=== PATIENT | male | born 1950 | race Caucasian/White ===

== ENCOUNTER 2019-08-11 10:14 | Outpatient (CLI) | payer MEDICARE, SELFPAY ==
--- NOTE | ~2019-08-11 | XR_ITS ---
EXAMINATION: XR ankle LT 2V DATE: 08/11/2019 10:33 INDICATION: Left ankle tenderness and effusion. TECHNIQUE: 2 views of left ankle were obtained. COMPARISON: None. FINDINGS: Bone alignment is normal. No acute fracture. There is heterotopic ossification distal to me dial and lateral malleoli from old injuries. There is mild midfoot osteoarthritis. There is an enthes ophyte at plantar aspect of calcaneal tuberosity. IMPRESSION: 1. Mild midfoot osteoarthritis. Reviewed, dictated and finalized at location A.
[2019-08-11 11:23] LABS: Uric Acid 5.7 mg/dL (3.5-8.5)
[2019-08-11 12:19] LABS: Hemoglobin 15.1 g/dL (14.0-18.0); Red Blood Count 4.59 M/mm3 (4.6-6.20); White Blood Count 7.4 K/mm3 (4.5-10.0)
[2019-08-11 12:20] LABS: Hematocrit 43.8 % (42.0-52.0); Mean Corpuscular HGB Conc 34.5 g/dl (32-36); Mean Corpuscular Hemoglobin 32.9 pg (26-34); Mean Corpuscular Volume 95.4 fl (80-100); Platelet Count Result 156 k/mm3 (150-375); Red Cell Distribution Width 13.2 % (11.5-14.5)
== END 2019-08-11 10:15 | disposition home or self-care (01) ==
LOC: ANHIMG 10:20
PROVIDERS: PCP Family Medicine; Visit Provider Nurse Practitioner Family
DX: S99.919A Unspecified injury of unspecified ankle, initial encounter (principal); M25.472 Effusion, left ankle; M10.9 Gout, unspecified; M19.072 Primary osteoarthritis, left ankle and foot
CPT/HCPCS: 36415; 73600; 84550; 85027

== ENCOUNTER 2020-06-01 10:13 | Outpatient (CLI) | payer MEDICARE, SELFPAY ==
--- NOTE | ~2020-06-01 | CT_ITS ---
EXAMINATION: CT abdomen pelvis w con DATE: 06/01/2020 10:42 INDICATION: Right lower quadrant abdominal pain for one week. Recent heavy lifting. TECHNIQUE: Computed tomography (CT) of the abdomen and pelvis was performed with 100 cc Omnipaque 350 intravenous contrast. Automated exposure control and iterative reconstruction technique were employe d. Exam dose: 946.15 mGy-cm total exam DLP. COMPARISON: None. FINDINGS: The lung bases are clear of infiltrate or consolidation. Normal heart size. No pericardial or pleural effusion. Multiple gallstones. Gallbladder wall measures approximately 2 mm thickness, within upper limits of n ormal. No hepatic space-occupying mass lesion or bile duct dilatation. No pancreatic mass lesion, calcificat ion or ductal dilatation. Normal splenic size. Normal morphology of the adrenal glands. No renal mass lesion except for small exophytic lateral upper pole right renal cyst. No urinary tract calculus or hydroureteronephrosis. There is prostate enlargement and calcification. The urinary bladder appears unremarkable. There is extensive calcification of the abdominal aorta but no abdominal aortic aneurysm. Renal arter y calcifications. Iliac and femoral artery calcifications. No intraperitoneal or retroperitoneal or pelvic mass lesion or adenopathy or ascites. Diverticulosis of left and right colon. No diverticulitis is detected. Normal appendix. No bowel obst ruction, bowel wall thickening, pneumatosis or intraperitoneal free air. Very small fat-containing umbilical hernia. Mild bilateral hydroceles. Diffuse idiopathic hyperostosis of the thoracic spine. There are bilateral L5 pars interarticularis defects with associated grade 2 anterolisthesis at L5-S1 . Moderately severe degenerative disc disease at L4-5. Severe degenerative disc disease at L5-S1. IMPRESSION: Cholelithiasis Diverticulosis of the colon; no evidence of diverticulitis Normal appendix Prostate enlargement and calcification Reviewed, dictated and finalized at Location A. Reviewed, dictated and finalized at location A.
[2020-06-01 10:37] LABS: Estimated Glomerular Filt Rate > 60
[2020-06-01 11:02] LABS: Basophils Absolute Auto 0.1 K/mm3 (0.0-0.1); Eosinophils Absolute Auto 0.3 K/mm3 (0-0.3); Eosinophils Percent Auto 5.2 % (0-4.4); Hematocrit 42.7 % (42.0-52.0); Hemoglobin 14.7 g/dL (14.0-18.0); Immature Granulocyte Absolute 0.02 K/mm3 (0.00-0.031); Immature Granulocyte Percent A 0.3 % (0-0.5); Lymphocytes Absolute Auto 1.97 K/mm3 (0.9-3.2); Mean Corpuscular HGB Conc 34.4 g/dl (32-36); Mean Corpuscular Hemoglobin 32.7 pg (26-34); Mean Corpuscular Volume 94.9 fl (80-100); Mean Platelet Volume 10.1 fl (7.4-10.4); Monocytes Absolute Auto 0.8 K/mm3 (0.1-0.6); Monocytes Percent Auto 13.1 % (2.6-8.5); Neutrophils Absolute Auto 2.8 K/mm3 (1.3-6.7); Neutrophils Percent Auto 47.4 % (45.5-73.1); Platelet Count Result 153 k/mm3 (150-375); Red Cell Distribution Width 12.6 % (11.5-14.5)
[2020-06-01 11:09] LABS: Alanine Aminotransferase 19 U/L (4-50); Alkaline Phosphatase 42 U/L (38-126); Amylase 45 U/L (30-110); Anion Gap 6 mmol/L (8-16); Aspartate Amino Transferase 28 U/L (17-59); Bilirubin,Total 0.5 mg/dL (0.2-1.3); Blood Urea Nitrogen 14 mg/dL (9-20); Calcium 9.3 mg/dL (8.4-10.2); Carbon Dioxide 26 mmol/L (22-30); Chloride 105 mmol/L (98-107); Estimated Glomerular Filt Rate > 60; Glucose 104 mg/dL (75-110); Lipase 116 U/L (23-300); Potassium 4.2 mmol/L (3.4-5.0); Sodium 137 mmol/L (137-145)
== END 2020-06-01 10:14 | disposition home or self-care (01) ==
LOC: ANHIMG 10:18
PROVIDERS: PCP Family Medicine; Visit Provider Nurse Practitioner Family
DX: R10.31 Right lower quadrant pain (principal); I70.1 Atherosclerosis of renal artery; I70.8 Atherosclerosis of other arteries; I70.213 Atherosclerosis of native arteries of extremities with intermittent claudication, bilateral legs; K57.30 Diverticulosis of large intestine without perforation or abscess without bleeding; M48.14 Ankylosing hyperostosis [Forestier], thoracic region; N43.3 Hydrocele, unspecified; M47.817 Spondylosis without myelopathy or radiculopathy, lumbosacral region; K80.20 Calculus of gallbladder without cholecystitis without obstruction; N40.0 Benign prostatic hyperplasia without lower urinary tract symptoms
CPT/HCPCS: 74177; 80053; 82150; 83690; 85025; Q9967

== ENCOUNTER 2020-06-15 11:08 | Outpatient (CLI) | payer MEDICARE, SELFPAY ==
--- NOTE | ~2020-06-15 | NM_ITS ---
EXAMINATION: NM hepatobiliary w pharm DATE: 06/15/2020 14:02 INDICATION: Calculus of gallbladder without cholecystitis. COMPARISON: CT abdomen and pelvis 06/01/2020 TECHNIQUE: 4.85 mCi Tc-99m mebrofenin (Choletec) was administered intravenously. Scintigraphic image s of the abdomen were obtained for one hour. Then, 2 mcg sincalide (Kinevac) IV was administered, and imaging was continued for 30 minutes. FINDINGS: There is normal clearance of radiotracer from the blood pool. There is homogeneous tracer u ptake by the liver. Activity progresses to the bowel and gallbladder. Gallbladder ejection fraction (GBEF) was 4%. Note that most patients with gallbladder dysfunction have GBEF < 35%, which overlaps w ith the broad normal range of 10-90%. IMPRESSION: 1. Low gallbladder ejection fraction, consistent with gallbladder dysfunction and/or chronic cholecy stitis. Reviewed, dictated and finalized at location A. IMPRESSION: 1. Low gallbladder ejection fraction, consistent with gallbladder dysfunction and/or chronic cholecystitis.
== END 2020-06-15 11:09 | disposition home or self-care (01) ==
PROVIDERS: PCP Family Medicine; Visit Provider Nurse Practitioner Family
DX: K80.20 Calculus of gallbladder without cholecystitis without obstruction (principal)
CPT/HCPCS: 78227; A9537; J2805

== ENCOUNTER → 2020-06-16 01:22 | Outpatient (CLI) | payer MEDICARE, SELFPAY ==
[2020-06-16 18:52] LABS: SARS-CoV-2 RNA PCR Negative
== END ==
PROVIDERS: PCP Family Medicine; Visit Provider Internal Medicine Gastroenterology
DX: Z01.812 Encounter for preprocedural laboratory examination (principal); Z20.822 Contact with and (suspected) exposure to COVID-19
CPT/HCPCS: C9803; U0003; U0005

== ENCOUNTER 2020-06-20 02:42 | Day surgery (SDC) | payer MEDICARE, SELFPAY ==
[2020-06-07 12:37] VITALS: BMI 29.2
[2020-06-20 09:06] VITALS: BP 138/69; PULSE 61; RESP 17; TEMP 36.3; O2SAT 99; BMI 28.0
[2020-06-20] MEDS: LACTATED RINGERS 1,000 ML 150 ML IV CONT (09:17)
--- NOTE | 2020-06-20 10:04 | PM.HPGS ---
History of Present Illness History of Present Illness Consent: Risks, benefits, and alternatives have been discussed and questions answered. Patient agrees to proceed with procedure. Chief complaint: rectal bleeding Narrative: Akhil Whittaker is a 69 year old male Who presented for investigation of rectal bleeding. On a couple of occasions lately he has passed red blood in his stools. His bowel movements have also changed. In the past he would have about 3 stools per day. Now he has usually just 1. He denies excessive constipation or the need to strain. His father had colon cancer Review of Systems Review of Systems: All systems reviewed & are unremarkable except as noted in HPI and below PMFSH Past Medical History Medical History Acute right-sided low back pain without sciatica BMI 28.0-28.9,adult BMI 29.0-29.9,adult Essential (primary) hypertension Gastroesophageal reflux disease without esophagitis Gout, unspecified Hyperlipidemia Paroxysmal atrial fibrillation Unspecified asthma, uncomplicated Unspecified osteoarthritis, unspecified site Surgical History Surgical History H/O elbow surgery H/O hand surgery H/O left knee surgery H/O shoulder surgery History of cardiac radiofrequency ablation Family History Family History Mother Family history of kidney disease Family history of renal failure Diabetes mellitus Father Carcinoma of colon Sibling No problems noted. 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 Gender identity (if verbalized by the patient): Male Spiritual care concerns: No Meds Home Medications and Allergies Home Medications Medication Instructions Recorded Confirmed Type fenofibrate micronized 134 mg 134 mg PO DAILY #90 cap 02/17/20 06/20/20 Rx capsule allopurinol 100 mg tablet See Rx Instructions .ROUTE 03/11/20 06/20/20 Rx .COMPLEX #180 tablet sotalol 80 mg tablet See Rx Instructions .ROUTE 04/22/20 06/20/20 Rx .COMPLEX #180 tablet atorvastatin 40 mg tablet 40 mg PO DAILY #90 tablet 05/10/20 06/20/20 Rx lisinopril 10 mg tablet See Rx Instructions .ROUTE 05/10/20 06/20/20 Rx .COMPLEX #90 tablet ipratropium bromide 17 See Rx Instructions .ROUTE 05/18/20 06/20/20 Rx mcg/actuation HFA aerosol inhaler .COMPLEX #12.9 inhaler apixaban 5 mg tablet 5 mg PO BID #180 tablet 05/28/20 06/20/20 Rx Allergies Allergy/AdvReac Type Severity Reaction Status Date / Time No Known Allergies Allergy Verified 06/20/20 09:05 Vital Signs Vital Signs - 24 hr 06/20/20 09:06 Temperature 36.3 C L Pulse Rate 61 Respiratory Rate 17 Blood Pressure 138/69 Pulse Oximetry 99 Exam Resp: Auscultation: clear to auscultation bilaterally Cardio: Rate: regular rate Rhythm: regular rhythm GI: GI Palp: Yes Soft to palpation and No Tenderness to palpation present (GI) Assessment and Plan Assessment and plan (1) Blood in stool: Code(s): K92.1 - Melena Status: Acute Assessment and Plan: Colonoscopy with possible biopsy or polypectomy or cautery or injection of substances.
--- NOTE | 2020-06-20 10:14 | WPDANESEPPF ---
Anes - Initial Pre Proc Eval Procedure: Operation Date: 06/20/20 10:00 Proposed Procedures p Colonoscopy - Huber Temple MD Date/Time: 06/20/20 10:14 Surgeon: Huber Temple MD Pre Op Diagnosis: rectal bleeding Patient Data Age: 69 Gender: M Height: 6 ft Weight: 93.8 kg Last Vital Signs Temp 97.3 F L 06/20/20 09:06 Pulse 61 06/20/20 09:06 Resp 17 06/20/20 09:06 BP 138/69 06/20/20 09:06 Pulse Ox 99 06/20/20 09:06 Allergies Allergy/AdvReac Type Severity Reaction Status Date / Time No Known Allergies Allergy Verified 06/20/20 09:05 Home Medications Medication Instructions Recorded Confirmed Type fenofibrate micronized 134 mg 134 mg PO DAILY #90 cap 02/17/20 06/20/20 Rx capsule allopurinol 100 mg tablet See Rx Instructions .ROUTE 03/11/20 06/20/20 Rx .COMPLEX #180 tablet sotalol 80 mg tablet See Rx Instructions .ROUTE 04/22/20 06/20/20 Rx .COMPLEX #180 tablet atorvastatin 40 mg tablet 40 mg PO DAILY #90 tablet 05/10/20 06/20/20 Rx lisinopril 10 mg tablet See Rx Instructions .ROUTE 05/10/20 06/20/20 Rx .COMPLEX #90 tablet ipratropium bromide 17 See Rx Instructions .ROUTE 05/18/20 06/20/20 Rx mcg/actuation HFA aerosol inhaler .COMPLEX #12.9 inhaler apixaban 5 mg tablet 5 mg PO BID #180 tablet 05/28/20 06/20/20 Rx Patient hx anesthesia problems: none Family hx anesthesia problems: none PMFSH Past Medical History Medical History Acute right-sided low back pain without sciatica BMI 28.0-28.9,adult BMI 29.0-29.9,adult Essential (primary) hypertension Gastroesophageal reflux disease without esophagitis Gout, unspecified Hyperlipidemia Paroxysmal atrial fibrillation Unspecified asthma, uncomplicated Unspecified osteoarthritis, unspecified site Surgical History Surgical History H/O elbow surgery H/O hand surgery H/O left knee surgery H/O shoulder surgery History of cardiac radiofrequency ablation Family History Family History Mother Family history of kidney disease Family history of renal failure Diabetes mellitus Father Carcinoma of colon Sibling No problems noted. 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 Questions were solicited and answers provided to the satisfaction of the patient/family/POA.
[2020-06-20 10:34] VITALS: BP 140/67; PULSE 58; RESP 16; O2SAT 97
[2020-06-20 10:44] VITALS: BP 108/59; PULSE 56; RESP 18; O2SAT 99
[2020-06-20 10:54] VITALS: BP 125/62; PULSE 57; RESP 14; O2SAT 100
== END 2020-06-20 11:11 | disposition home or self-care (01) ==
PROVIDERS: PCP Family Medicine; Visit Provider Internal Medicine Gastroenterology
PROC: 0DJD8ZZ Inspection of Lower Intestinal Tract, Via Natural or Artificial Opening Endoscopic (ICD-10-PCS; CPT 45378; principal; 2020-06-20 10:00)
DX: K92.1 Melena (principal); K64.8 Other hemorrhoids; K57.30 Diverticulosis of large intestine without perforation or abscess without bleeding; I10 Essential (primary) hypertension; I48.0 Paroxysmal atrial fibrillation; J45.909 Unspecified asthma, uncomplicated; K21.9 Gastro-esophageal reflux disease without esophagitis; E78.5 Hyperlipidemia, unspecified; M10.9 Gout, unspecified; M19.90 Unspecified osteoarthritis, unspecified site; Z79.01 Long term (current) use of anticoagulants; Z87.891 Personal history of nicotine dependence
CPT/HCPCS: 45378; C9803; J2704; J7120; U0003; U0005

== ENCOUNTER 2020-06-28 08:25 | Outpatient (CLI) | payer MEDICARE, SELFPAY | END 2020-06-28 08:26 | disposition home or self-care (01) | LOC: ANHSURGERY 08:28 | PROVIDERS: PCP Family Medicine; Visit Provider Surgery | DX: K80.20 Calculus of gallbladder without cholecystitis without obstruction (principal) | CPT/HCPCS: 36415; 86850; 86900; 86901 ==

== ENCOUNTER → 2020-06-29 00:49 | Outpatient (CLI) | payer MEDICARE, SELFPAY ==
[2020-06-29 21:01] LABS: SARS-CoV-2 RNA PCR Negative
== END ==
PROVIDERS: PCP Family Medicine; Visit Provider Surgery
DX: Z01.812 Encounter for preprocedural laboratory examination (principal); Z20.822 Contact with and (suspected) exposure to COVID-19
CPT/HCPCS: C9803; U0003; U0005

== ENCOUNTER 2020-07-02 02:59 | Day surgery (SDC) | payer MEDICARE, SELFPAY ==
[2020-06-25 13:32] VITALS: BMI 29.2
[2020-07-02 11:11] VITALS: BP 133/61; PULSE 55; RESP 18; TEMP 36.7; O2SAT 100
[2020-07-02] MEDS: ACETAMINOPHEN 500 MG TABLET 1000 MG PO (11:17)
[2020-07-02] MEDS: LACTATED RINGERS 1,000 ML 30 ML IV CONT (11:20)
[2020-07-02] MEDS: KETOROLAC 15 MG/ML VIAL (*BKC) IV PUSH (11:24)
--- NOTE | 2020-07-02 11:51 | SUR.PREOP ---
PT AND MADE AWARE OF SURGERY TIME DELAY
--- NOTE | 2020-07-02 12:05 | WPDANESEPPF ---
Anes - Initial Pre Proc Eval Procedure: Operation Date: 07/02/20 13:15 Proposed Procedures p Laparoscopic Cholecystectomy, Possible Open - Bob Conley DO Date/Time: 07/02/20 12:05 Surgeon: Bob Conley DO Pre Op Diagnosis: symptomatic cholelithiasis Patient Data Age: 69 Gender: M Height: 1.83 m Weight: 94.2 kg Last Vital Signs Temp 36.7 C 07/02/20 11:11 Pulse 55 L 07/02/20 11:11 Resp 18 07/02/20 11:11 BP 133/61 07/02/20 11:11 Pulse Ox 100 07/02/20 11:11 Allergies Allergy/AdvReac Type Severity Reaction Status Date / Time No Known Allergies Allergy Verified 06/25/20 13:22 Home Medications Medication Instructions Recorded Confirmed Type fenofibrate micronized 134 mg 134 mg PO DAILY #90 cap 02/17/20 07/02/20 Rx capsule atorvastatin 40 mg tablet 40 mg PO DAILY #90 tablet 05/10/20 07/02/20 Rx apixaban 5 mg tablet 5 mg PO BID #180 tablet 05/28/20 07/02/20 Rx Atrovent HFA 2 puff INHALATION QID PRN 06/25/20 07/02/20 History allopurinol 100 mg PO BID 06/25/20 07/02/20 History lisinopril 10 mg PO HS 06/25/20 07/02/20 History omega-3 fatty acids-vitamin E 1 cap PO BID 06/25/20 07/02/20 History [Fish Oil] sotalol 80 mg PO BID 06/25/20 07/02/20 History vitamin B complex [B 1 tablet PO BID 06/25/20 07/02/20 History Complex-Vitamin B12] Patient hx anesthesia problems: none Family hx anesthesia problems: none PMFSH Past Medical History Medical History (Updated 07/02/20 @ 08:08 by Linus Barbosa DO) Acute right-sided low back pain without sciatica Asthma BMI 28.0-28.9,adult BMI 29.0-29.9,adult Essential (primary) hypertension Gastroesophageal reflux disease without esophagitis Gout, unspecified Hyperlipidemia Paroxysmal atrial fibrillation Unspecified asthma, uncomplicated Unspecified osteoarthritis, unspecified site Surgical History Surgical History H/O elbow surgery H/O hand surgery H/O left knee surgery H/O shoulder surgery History of cardiac radiofrequency ablation Family History Family History Mother Family history of kidney disease Family history of renal failure Diabetes mellitus Father Carcinoma of colon Sibling No problems noted. 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 Gender identity (if verbalized by the patient): Male Spiritual care concerns: No Anes - Eval Final PreProcedure Day of Procedure 07/02/20 12:05 Patient weight: overweight Heart: regular rate and rhythm Lungs: clear to auscultation and normal air movement Airway: Mallampati scale class II Neurological: alert and oriented Last oral intake: >/= 8 hours ASA classification: III Emergent: no Anesthetic plan: proceed Anesthesia type and monitoring: general ETT and standard monitoring Informed Consent: The patient's anesthetic plan and its attendant risks and benefits were discussed with the patient/family/POA. Questions were solicited and answers provided to the satisfaction of the patient/family/POA.
--- NOTE | 2020-07-02 12:30 | WPDHPUPDATE1 ---
History and Physical Update Update Date/Time: 07/02/20 12:30 History and Physical has been reviewed, including an updated exam of the patient. There are NO changes in the patient's condition. Risks, benefits, and alternatives have been discussed and questions answered. Patient agrees to proceed with procedure.
--- NOTE | 2020-07-02 13:50 | SUR.PREOP ---
1320 PT MADE AWARE OF CONTINUED SURGERY TIME DELAY
[2020-07-02] MEDS: ceFAZolin 2 GM/D5W 50 ML 2 GM/50 ML BAG IVPB (14:12)
[2020-07-02] MEDS: BUPIVACAINE/EPINEPHRINE 0.5% 30 ML VIAL INFILTRATE (14:34)
[2020-07-02 15:02] VITALS: BP 148/78; PULSE 65; RESP 14; TEMP 36.6; O2SAT 99
--- NOTE | 2020-07-02 15:04 | PM.PROC ---
Procedure Note - Detailed Date of procedure: 07/02/20 Pre-op diagnosis: symptomatic cholelithiasis Post-op diagnosis: same Procedure performed: Laparoscopic Cholecystectomy Description of procedure: Procedure as well as risks, benefits, and alternatives were discussed with patient. Written consent was obtained and placed in chart prior to procedure. The patient was brought back to surgical suite. Patient was placed in supine position on operating table. Time-out was done to confirm patient and procedure. Patient was then intubated by the anesthesia department. Abdomen was prepped and draped in sterile fashion using chlorhexidine prep. 0.5% bupivacaine with epinephrine was infiltrated at each site of incision. A 5 millimeter incision was made near the umbilicus, and a 5 millimeter Optiview trocar was advanced through the abdominal layers under direct visualization. Once inside the abdominal cavity, carbon dioxide was insufflated to create a pneumoperitoneum. The camera was inserted and the abdomen was inspected. No immediate abnormalities were identified. The patient was placed in reverse Trendelenburg position and rotated slightly to the left. An 11 millimeter incision was made in the subxiphoid region, and an 11 millimeter trocar was inserted under direct visualization. Two 5 millimeter incisions were made in the right upper quadrant, and two 5 millimeter trocars were inserted under direct visualization. The gallbladder was identified and grasped at the fundus and retracted superiorly. It was then grasped at the infundibulum retracted laterally. Careful dissection around the neck of the gallbladder was performed using blunt dissection with a [place] grasper and hook electrocautery. The cystic duct was identified, and a window was created behind it. The cystic artery was also identified and a window was created behind it. The critical view of safety was identified, visualizing the cystic duct running directly into the neck of the gallbladder, and the cystic artery running directly into the wall of the gallbladder. A 5 millimeter clip hoisting engineer pile driving was then used to place 2 clips proximally and 1 clip distally on both the cystic duct and cystic artery. They were then both transected using endoscopic scissors. Once safely away from the jin hepatitis, the gallbladder was dissected free from the liver bed using hook electrocautery. Hemostasis was achieved along the way. The gallbladder was removed completely and then removed through the subxiphoid port. The liver bed was then inspected. Hemostasis appeared adequate, and our clips appeared secure. The area was gently irrigated with sterile saline. No other abnormalities were seen. The patient was flattened out in bed, and 1 final inspection was made around the abdominal cavity. The subxiphoid port was removed, and a Hussein Talia cone was used to approximate the fascia with an 0-Vicryl simple interrupted suture. The remaining ports were then removed under direct visualization, the camera was removed, and the pneumoperitoneum was released. The skin of the incisions was approximated using 4-0 Monocryl subcuticular sutures. Exofin glue was applied on top. The patient was then awakened from anesthesia, extubated, and transferred to recovery. Anesthesia: GETA and local (0.5% bupivicaine with epi) Surgeon: Bob Conley DO Estimated blood loss (mL): 5 Drains: No Packing: No Pathology: yes Complications: No immediate complications Condition: stable (Patient tolerated procedure well, and is currently resting comfortably in recovery.) Disposition: same day Findings: Akhil is a 69 y/o male who presents with abdominal pain. He states about 3 weeks ago, he was lifting something heavy at home and experienced RLQ and LLQ abdominal pain. He does not experience pain after eating. He states the pain occasionally radiates to his right lower back. He recently noticed a little blood after BM's. A colonoscopy was d
[2020-07-02 15:15] VITALS: BP 138/69; PULSE 54; RESP 12; O2SAT 99
[2020-07-02 15:25] VITALS: BP 135/68; PULSE 51; RESP 12; O2SAT 95
[2020-07-02 15:35] VITALS: BP 154/66; PULSE 54; RESP 14
[2020-07-02 16:05] VITALS: BP 146/63; PULSE 50; RESP 14
== END 2020-07-02 16:20 | disposition home or self-care (01) ==
PROVIDERS: PCP Family Medicine; Visit Provider Surgery
PROC: 0FT44ZZ Resection of Gallbladder, Percutaneous Endoscopic Approach (ICD-10-PCS; CPT 47562; principal; 2020-07-02 13:15)
DX: K80.10 Calculus of gallbladder with chronic cholecystitis without obstruction (principal); J45.909 Unspecified asthma, uncomplicated; I10 Essential (primary) hypertension; K21.9 Gastro-esophageal reflux disease without esophagitis; E78.5 Hyperlipidemia, unspecified; I48.0 Paroxysmal atrial fibrillation; M10.9 Gout, unspecified; Z79.01 Long term (current) use of anticoagulants; Z79.51 Long term (current) use of inhaled steroids; Z87.891 Personal history of nicotine dependence
CPT/HCPCS: 47562; 88304; A9270; C9803; J0690; J1100; J1170; J1885; J2250; J2405; J2704; J2710; J3010; J7120; U0003; U0005

== ENCOUNTER 2020-08-09 08:51 | Outpatient (CLI) | payer MEDICARE, SELFPAY ==
--- NOTE | ~2020-08-09 | XR_ITS ---
EXAMINATION: XR foot RT min 3V DATE: 08/09/2020 09:12 INDICATION: Lateral right foot pain. TECHNIQUE: 4 views of right foot were obtained. COMPARISON: None. FINDINGS: Bone alignment is normal. No fracture. There is mild flattening of head of second metatarsa l, consistent with osteonecrosis (Freiberg's infraction). There is mild osteoarthritis of first and s econd metatarsophalangeal joints and some of the interphalangeal joints and midfoot joints. There is an enthesophyte at plantar aspect of calcaneal tuberosity. IMPRESSION: 1. Mild polyarticular osteoarthritis. Reviewed, dictated and finalized at location A.
== END 2020-08-09 08:52 | disposition home or self-care (01) ==
LOC: ANHIMG 08:56
PROVIDERS: PCP Family Medicine; Visit Provider Nurse Practitioner Family
DX: M19.071 Primary osteoarthritis, right ankle and foot (principal)
CPT/HCPCS: 73630

== ENCOUNTER 2021-05-14 07:06 | Outpatient (CLI) | payer MEDICARE, SELFPAY ==
--- NOTE | ~2021-05-14 | CT_ITS ---
EXAMINATION: CT abdomen pelvis w con DATE: 05/14/2021 07:41 INDICATION: Left lower quadrant abdominal pain. TECHNIQUE: Computed tomography (CT) of the abdomen and pelvis was performed with 100 mL Omnipaque 350 intravenous contrast. Automated exposure control and iterative reconstruction technique were employe d. The dose-length product was 749.25 mGy-cm. COMPARISON: CT abdomen and pelvis 06/01/2020 FINDINGS: The visualized portions of the lung bases demonstrate minimal atelectasis. No pleural effus ion. The heart size is normal. No pericardial effusion. There are coronary artery calcifications. The liver and spleen are normal. There are changes of cholecystectomy. The pancreas and adrenal glands a re normal. There is cortical thinning of the kidneys. There is a 10 mm cyst in right kidney. The pros duque is mildly enlarged. There is diverticulosis of the colon without evidence of diverticulitis. The re are no dilated loops of bowel. The appendix is normal. There are no pathologically enlarged lymph nodes. There is no free intraperitoneal fluid. There are chronic bilateral L5 pars defects. There is 8 mm anterolisthesis of L5 on S1. There is severe lumbar spondylosis. IMPRESSION: 1. No specific etiology for the patient's symptoms. Reviewed, dictated and finalized at location A. TAL MARKETING PROJECT MANAGER
[2021-05-14 07:33] LABS: Estimated Glomerular Filt Rate > 60
== END 2021-05-14 07:07 | disposition home or self-care (01) ==
LOC: ANHIMG 07:09
PROVIDERS: PCP Family Medicine; Visit Provider Nurse Practitioner Family
DX: R10.32 Left lower quadrant pain (principal); K57.90 Diverticulosis of intestine, part unspecified, without perforation or abscess without bleeding; R10.84 Generalized abdominal pain; N28.1 Cyst of kidney, acquired; K57.30 Diverticulosis of large intestine without perforation or abscess without bleeding; M47.816 Spondylosis without myelopathy or radiculopathy, lumbar region
CPT/HCPCS: 74177; Q9967

== ENCOUNTER 2022-02-24 07:53 | Outpatient (CLI) | payer MEDICARE, SELFPAY ==
--- NOTE | ~2022-02-24 | NM_ITS ---
EXAMINATION: NM bone scan whole body DATE: 02/24/2022 11:37 INDICATION: Malignant neoplasm of the prostate TECHNIQUE: 27.9 mCi Tc-99m HDP was administered intravenously. Delayed whole-body scintigrams were o btained. COMPARISON: CT abdomen and pelvis dated 05/14/2021 FINDINGS: There is mild increased uptake associated with multiple endplate osteophytes along the lateral margin of the thoracic and lumbar spine. Additional mild increased uptake associated with enthesopathic oss ification at the greater trochanters and ischial tuberosities, right greater than left. Additional li amna degenerative joint centered uptake at the left sternoclavicular joint. Additional mild likely de generative joint centered uptake at the medial compartment of the left knee. Mild likely degenerative disc centered uptake at the lower cervical spine. No other suspicious foci of abnormal bone uptake t o suggest metastatic disease. IMPRESSION: 1. Typical distribution of mild likely degenerative discogenic, joint centered and enthesopathic upta ke as detailed above. Reviewed, dictated and finalized at location B. H HANDLER IMPRESSION: 1. Typical distribution of mild likely degenerative discogenic, joint centered and enthesopathic uptake as detailed above.
== END 2022-02-24 07:54 | disposition home or self-care (01) ==
PROVIDERS: PCP Family Medicine; Visit Provider Urology
DX: C61 Malignant neoplasm of prostate (principal)
CPT/HCPCS: 78306; A9561

== ENCOUNTER 2022-03-18 09:26 | Outpatient (CLI) | payer MEDICARE, SELFPAY ==
--- NOTE | ~2022-03-18 | XR_ITS ---
EXAMINATION: XR chest 2V DATE: 03/18/2022 09:45 INDICATION: Cough. TECHNIQUE: PA and lateral views of the chest were obtained. COMPARISON: None FINDINGS: The lungs are clear with no focal airspace opacities, pulmonary edema, pleural effusion or pneumothor ax. Arch size is normal. Small pericardial fat pad extending laterally from apex of the heart. There are bridging osteophytes at multiple levels in the spine, consistent with diffuse idiopathic skeletal hyperostosis (DISH). IMPRESSION: 1. No acute cardiopulmonary disease. Reviewed, dictated and finalized at location A. ICAL CARE NURSE
== END 2022-03-18 09:27 | disposition home or self-care (01) ==
LOC: ANHIMG 09:30
PROVIDERS: PCP Family Medicine; Visit Provider Nurse Practitioner Family
DX: R05.9 Cough, unspecified (principal)
CPT/HCPCS: 71046

== ENCOUNTER 2022-06-16 00:22 | Day surgery (SDC) | payer MEDICARE, SELFPAY ==
[2022-06-09 13:21] VITALS: BMI 29.2
--- NOTE | 2022-06-09 13:45 | PC.NURSE ---
Report to the Outpatient Waiting Room, entrance under the green pavilion located off [facility], at time __1:00PM on date ___06/16/22____. Planned Procedure Time: ___3:00PM . Time changes happen often and if your time is changed the preop area will call you the afternoon before. - You and your visitor will be asked to self-screen and do not enter if you have any COVID symptoms. - Only one visitor is requested with a max of two and NO children visitors are allowed at this time. - The patient visitor may be requested to leave or wait in car when not with patient due to distancing restrictions. - A mask is optional within the hospital at this time. Patients may have clear liquids (water, carbonated beverages, clear teas, apple juice) until 3 hours prior to surgery with a maximum of 20 ounces. - No food from midnight until time of surgery Take the following medications with a SIP of water the morning of surgery: ____ATROVENT INHALER, SOTOLOL, ALBUTEROL INHALER NEEDED___ DO NOT STOP ANY OF YOUR OTHER PRESCRIPTION MEDICATIONS PRIOR TO SURGERY ?EXCEPT THE FOLLOWING Medications to discontinue per physician ____HOLD ELIQUIS 3 DAYS PRE-OP PER DR ZAPATA(PER PATIENT) AND HOLD ALL VITAMINS/SUPPLEMENTS 3 DAYS PRE-OP PER ANESTHESIA Date to take last dose__06/12/22 Please no make-up, nail syriac, hairspray, perfume, deodorant, or body powder the day of surgery. No jewelry (including any body piercings) or valuables the day of surgery, leave them at home. Please take a shower or bath the night before, or the morning of, surgery with an antibacterial soap. Wear comfortable, loose fitting clothing. Children are encouraged to wear pajamas. - Jewelry must be removed prior to entering the operating room. Rings and piercings that are not removed may be cut off. - The hospital will not accept responsibility for valuables. - Please leave all valuables, including medications, at home the day of surgery. If you are going home after surgery, a licensed local hazmat driver must drive you home. - NO public transportation without another adult if you receive anesthesia. - We recommend that an adult stay with you for 24 hours following discharge. - We also recommend that you do not drive, make important decision, drink alcoholic beverages, or take any drugs that were not prescribed by your health care provider for at least 24 hours after your discharge time. me. Follow any additional instructions given to you from your surgeon. If you or anyone in your household have experienced Covid symptoms in the past week, please notify your surgeon or the nurse liaison at the phone number below for possible testing. Telephone instructions given to _PATIENT and asked if any additional questions and then verbalized understanding. Patient advised to call surgeon office or pre surgery nurse liaison [phone] if any additional questions.
[2022-06-16] VITALS (8 sets, daily range): BP systolic 110–144; BP diastolic 58–80; PULSE 55–74; RESP 10–20; TEMP 36.1–36.2; O2SAT 97–100
--- NOTE | 2022-06-16 13:08 | WPDANESEPPF ---
Anes - Initial Pre Proc Eval Procedure: Operation Date: 06/16/22 15:00 Proposed Procedures p Rectal Exam Under Anesthesia, - Bob Conley DO s Transanal Hemorrhoid Dearterialization - Bob Conley DO Date/Time: 06/16/22 13:08 Surgeon: Bob Conley DO Pre Op Diagnosis: grade 3 internal hemorrhoids Patient Data Age: 71 Gender: M Height: 1.83 m Weight: 98 kg Allergies Allergy/AdvReac Type Severity Reaction Status Date / Time No Known Allergies Allergy Verified 06/16/22 13:26 Home Medications Medication Instructions Recorded Confirmed Type omega-3 fatty acids-vitamin E 1 cap PO BID 06/25/20 06/09/22 History 1,000 mg capsule vitamin B complex (B 1 tablet PO BID 06/25/20 06/09/22 History Complex-Vitamin B12 tablet) finasteride 5 mg tablet 5 mg PO DAILY 05/07/21 06/09/22 History fenofibrate micronized 134 mg 134 mg PO DAILY #90 caps 03/03/22 06/09/22 Rx capsule albuterol sulfate 90 mcg/actuation 2 inh inhalation Q4H PRN shortness 03/17/22 06/09/22 Rx aerosol inhaler of breath or wheezing #8.5 grams relugolix 120 mg tablet (Orgovyx) 120 mg PO DAILY 05/20/22 06/09/22 History tamsulosin 0.4 mg capsule 0.4 mg PO DAILY 05/20/22 06/09/22 History allopurinol 100 mg tablet 100 mg PO BID 06/09/22 06/09/22 History apixaban 5 mg tablet (Eliquis) 5 mg PO BID 06/09/22 06/09/22 History ipratropium bromide 17 2 puff inhalation QID 06/09/22 06/09/22 History mcg/actuation HFA aerosol inhaler (Atrovent HFA) lisinopril 10 mg tablet 10 mg PO QPM 06/09/22 06/09/22 History sotalol 80 mg tablet 80 mg PO BID 06/09/22 06/09/22 History Patient hx anesthesia problems: none Family hx anesthesia problems: none Results Review: All pre-operative results and documents have been reviewed as part of the pre-operative evaluation. [facility] Past Medical History Medical History (Updated 06/02/22 @ 11:31 by Yancy Gao) Acute right-sided low back pain without sciatica Asthma BMI 28.0-28.9,adult BMI 29.0-29.9,adult BMI 29.0-29.9,adult Colonoscopy planned Essential (primary) hypertension Gastroesophageal reflux disease without esophagitis Gout, unspecified Hyperlipidemia Osteoarthritis, hand Paroxysmal atrial fibrillation Prostate cancer Unspecified asthma, uncomplicated Unspecified osteoarthritis, unspecified site Surgical History Surgical History H/O elbow surgery H/O hand surgery H/O left knee surgery H/O shoulder surgery History of cardiac radiofrequency ablation Hx laparoscopic cholecystectomy Family History Family History Mother Family history of kidney disease Family history of renal failure Diabetes mellitus Father Carcinoma of colon Sibling No problems noted. Social History Social History Smoking packs per day: 1 Smoking cigarettes per day: 20.0 Years smoked: 16 Smoking pack-years: 16.00 Smoking status: Former smoker Tobacco type: cigarettes Second hand tobacco smoke exposure: No Smoking end date: 09/07/87 Alcohol intake: current Drinks per week: 21 Substance use: never Substance use type: does not use Lack of Transportation: No Lack of Food: Never True Current Housing: I Have Housing Concerned About Future Housing: No Difficulty Paying Gas/Electric Bills: No Difficulty Paying for Meds: No Currently Unemployed: No Education: Bachelor's Degree Difficulty w/ Childcare or Family Care: No Living arrangements: with family Additional living arrangements comments: Occupation/Education: retired 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
[2022-06-16] MEDS: ACETAMINOPHEN 500 MG TABLET 1000 MG PO (13:31)
[2022-06-16] MEDS: KETOROLAC 15 MG/ML VIAL (*BKC) IV PUSH (13:47)
[2022-06-16] MEDS: LACTATED RINGERS 1,000 ML 30 ML IV CONT (14:01)
--- NOTE | 2022-06-16 14:39 | WPDHPUPDATE1 ---
History and Physical Update Update Date/Time: 06/16/22 14:39 History and Physical has been reviewed, including an updated exam of the patient. There are NO changes in the patient's condition. Risks, benefits, and alternatives have been discussed and questions answered. Patient agrees to proceed with procedure.
[2022-06-16] MEDS: ceFAZolin 2 GM/D5W 50 ML 2 GM/50 ML BAG IVPB (14:56)
[2022-06-16] MEDS: BUPIVACAINE/EPINEPHRINE 0.25% 50 ML VIAL 10 ML INFILTRATE (15:52)
--- NOTE | 2022-06-16 15:53 | W.PM.PROC2 ---
Procedure Note - Detailed Date of Procedure 06/16/22 Pre-op Diagnosis grade 3 internal hemorrhoids Post-op Diagnosis Same (And posterior midline anal fissure) Procedure Performed Multiple hemorrhoid ligation (Transanal hemorrhoid dearterialization procedure) Surgeon Bob Conley, DO Anesthesia General and Local ( 0.5% bupivacaine with epinephrine) Indications This is a 71-year-old man who presented with rectal bleeding. He has a history of internal hemorrhoids and had undergone hemorrhoid banding procedure about 5 months ago at an outside facility. This did not help significantly and he continues to have regular bleeding after bowel movements. Anoscopy was performed in the office but could not advance the scope high enough to successfully banded any other hemorrhoids. Discussions were made with the patient about other treatment options and decision was made to proceed with transanal hemorrhoid dearterialization procedure. Findings Rectal exam under anesthesia was performed. Patient was found to have internal hemorrhoids that were slightly prolapsing. With anoscopy, there did appear to be a small posterior midline anal fissure as well. This appeared to be relatively acute, and was likely more related to anoscope trauma. The remainder of the anal rectal canal appeared normal. Doppler assisted hemorrhoid dearterialization procedure was performed. I identified the pulsatile vessels in the typical locations in the 1, 3, 5, 7, 9, and 11:00 positions. No specimens were obtained for pathology the Description of Procedure Procedure as well as risks, benefits, and alternatives were discussed with the patient. Written consent was obtained and placed in chart prior to procedure. Patient was brought back to surgical suite. He was placed supine hospital stretcher. He was then intubated by the Anesthesia Department. He was then repositioned into prone sakina-knife position and his buttocks were taped apart on each side. His perirectal area was prepped and draped in sterile fashion using Betadine prep. Time-out was done to confirm patient and procedure. Digital rectal exam was initially performed. A Hill-Escobar anoscope was then inserted in the anorectal canal was carefully inspected. Prolapsing internal hemorrhoids were identified, but no other significant abnormalities were noted. The THD Doppler anoscope was then inserted. The pulsatile hemorrhoidal vessel was initially identified in the 1 o'clock location. A 2 0 Vicryl [id number] suture was placed at this location and the suture was tied down to ligate the vessel. This was then repeated in the 3, 5, 7, 9, and 11 o'clock positions. All Doppler signals were easily identified in each location. After completing this portion of the procedure, I then examined the anoderm and anal mucosa for any persistent prolapsing tissue. There was a small posterior midline anal fissure, but no other significant abnormalities were noted. One final inspection was made around the anal rectal canal and no other abnormalities were noted. 0.5% bupivacaine with epinephrine was infiltrated locally around the anus. The patient was then awakened from anesthesia, extubated, and transferred to recovery. Estimated Blood Loss 10 Complications No immediate complications Condition Stable Disposition Same day [facility] Billing Surgery - Charge Forward: Surgery Billing
== END 2022-06-16 15:20 | disposition home or self-care (01) ==
PROVIDERS: PCP Family Medicine; Visit Provider Surgery
PROC: (CPT 46948; principal; 2022-06-16 15:00)
PROC: (CPT 46948; 2022-06-16 15:00)
DX: K64.2 Third degree hemorrhoids (principal); K60.2 Anal fissure, unspecified; J45.909 Unspecified asthma, uncomplicated; I10 Essential (primary) hypertension; K21.9 Gastro-esophageal reflux disease without esophagitis; E78.5 Hyperlipidemia, unspecified; I48.0 Paroxysmal atrial fibrillation; M10.9 Gout, unspecified; Z87.891 Personal history of nicotine dependence; Z79.51 Long term (current) use of inhaled steroids; Z79.01 Long term (current) use of anticoagulants
CPT/HCPCS: 46948; A9270; C9290; J0330; J0690; J1100; J1885; J2250; J2405; J2704; J3010; J7120

== ENCOUNTER 2023-05-01 09:27 | Outpatient (CLI) | payer MEDICARE, SELFPAY ==
--- NOTE | ~2023-05-01 | XR_ITS ---
EXAMINATION:XR_CERV2-3V_CR DATE: 05/01/2023 09:55 INDICATION: Neck pain TECHNIQUE: AP, lateral, lateral swimmers and odontoid views of the cervical spine are provided. COMPARISON: None FINDINGS: There are 2 mm of anterolisthesis of C2 on C3. The odontoid process is intact. No fracture is identified. There is moderate to severe loss of intervertebral disc space height at C5-6 and C6-7. The vertebral body heights are maintained. Small degenerative osteophytes project from the anterior endplates of multiple vertebral bodies. There is multilevel moderate facet and uncovertebral joint os teoarthritis. Calcified carotid artery atherosclerosis is noted. Prevertebral soft tissues are normal . IMPRESSION: 1. Severe cervical spondylosis without acute osseous abnormality. Reviewed, dictated and finalized at location B. BOLTER AND WRAPPER
--- NOTE | ~2023-05-01 | XR_ITS ---
EXAMINATION: XR lumbar spine 2-3V DATE: 05/01/2023 09:54 INDICATION: Low back pain TECHNIQUE: Anteroposterior and lateral views of the lumbar spine, and cone-down lateral view of the l umbosacral junction were obtained. COMPARISON: CT, 05/14/2021 FINDINGS: There are 12 mm of anterolisthesis of L5 on S1. There are bilateral L5 pars defects. There is severe loss of intervertebral disc space height at L4-5 and L5-S1 and moderate loss of disc space height throughout the remainder of the lumbar spine. The vertebral body heights are maintained. There is no fracture. Calcified atherosclerosis is noted. Cholecystectomy clips are noted. Degenerative os teophytes project from the anterior endplates of multiple vertebral bodies. IMPRESSION: 1. Severe lumbar spondylosis, with chronic grade 1 anterolisthesis of L5 on S1, without acute finding s or significant interval change. Reviewed, dictated and finalized at location B. HT ENGINEER IMPRESSION: 1. Severe lumbar spondylosis, with chronic grade 1 anterolisthesis of L5 on S1, without acute findings or significant interval change.
== END 2023-05-01 09:28 | disposition home or self-care (01) ==
PROVIDERS: PCP Family Medicine; Visit Provider Nurse Practitioner Adult Health
DX: M43.02 Spondylolysis, cervical region (principal); M43.06 Spondylolysis, lumbar region; M47.817 Spondylosis without myelopathy or radiculopathy, lumbosacral region
CPT/HCPCS: 72040; 72100

== ENCOUNTER 2023-05-22 08:36 | Outpatient (CLI) | payer MEDICARE, SELFPAY ==
--- NOTE | ~2023-05-22 | MR_ITS ---
EXAMINATION: MR cervical spine wo/w con DATE: 05/22/2023 11:04 INDICATION: Cervical spondylosis without myelopathy or radiculopathy TECHNIQUE: Magnetic resonance imaging (MRI) of the cervical spine was performed without intravenous c ontrast. Sequences included sagittal T2-weighted FSE, sagittal T2-weighted FS FSE, sagittal T1-weight ed FSE, axial MERGE and axial T2-weighted FSE. COMPARISON: Cervical spine radiographs dated 05/01/2023 FINDINGS: Bone alignment is normal. Vertebral body heights are normal. Bone marrow signal intensity is normal . Moderate disc height loss and moderate sized anterior endplate osteophytes at C5-C6 and C6-C7. Mild disc height loss at the remaining cervical and upper thoracic levels. Cord signal intensity is zach l. Visualized cervical soft tissues are unremarkable. The following disc levels are specifically disc ussed: C2-C3: The disc does not extend beyond the endplate margin. There is mild left uncovertebral joint os teoarthritis. There is mild right . The left facet joint is fused with moderate hypertrophic changes. facet joint osteoarthritis. There is moderate left neural foraminal stenosis. There is no central ca nal stenosis. C3-C4: Disc is bulging. There is mild right and severe left uncovertebral joint osteoarthritis. There is moderate left and severe right facet joint osteoarthritis. There is moderate bilateral neural for aminal stenosis. There is mild central canal stenosis. C4-C5: Disc is bulging. There is moderate bilateral uncovertebral joint osteoarthritis. There is mode rate bilateral facet joint osteoarthritis. There is moderate bilateral neural foraminal stenosis. The re is mild central canal stenosis. C5-C6: Disc is bulging. There is moderate bilateral uncovertebral joint osteoarthritis. There is mode rate bilateral facet joint osteoarthritis. There is mild left and moderate right neural foraminal ace nosis. There is mild central canal stenosis. C6-C7: Disc is bulging. There is moderate bilateral uncovertebral joint osteoarthritis. There is mild bilateral facet joint osteoarthritis. There is mild right and mild to moderate left neural foraminal stenosis. There is mild central canal stenosis. C7-T1: The disc does not extend beyond the endplate margin. There is mild right uncovertebral joint o steoarthritis. There is severe bilateral facet joint osteoarthritis. There is no neural foraminal ace nosis. There is no central canal stenosis. IMPRESSION: 1. Moderate cervical spondylosis. Reviewed, dictated and finalized at location B.
--- NOTE | ~2023-05-22 | MR_ITS ---
MRI of the lumbar spine Clinical History: Inflammatory spondylopathy Technique: Axial T2-weighted images, and sagittal T1-weighted, T2-weighted, and T2 fat-sat images wer e acquired. COMPARISON: 07/02/2011 Findings: There are bilateral L5 pars interarticularis defects, with 1 cm anterolisthesis of L5 over S1. There is 3 mm retrolisthesis of L4 over L5. There is minimal grade 1 retrolisthesis of L2 over L3 , and of L3 over L4. No suspicious bone marrow signal abnormality seen. At L1-L2, there is no significant disc bulge or herniation. There is moderate facet arthropathy. No c entral canal stenosis. There is mild right neural foraminal narrowing. Left neural foramen preserved. At L2-L3, there is mild disc bulge and moderate facet arthropathy. No central canal stenosis. There i s mild bilateral neural foraminal narrowing. At L3-L4, there is mild disc bulge and moderate to advanced facet arthropathy. No all central canal stenosis. There is moderate bilateral neural foraminal narrowing. At L4-L5, there is moderate degenerative disc narrowing. There is mild disc bulge and advanced facet arthropathy. No central canal stenosis. There is severe left neural foraminal, right, and moderate to severe right neural foraminal, otherwise. At L5-S1, there is disc bulge/uncovering with moderate facet arthropathy. No central canal stenosis. There is moderate to severe left neural foraminal narrowing, and severe right neural foraminal narrow ing. Paravertebral soft tissues are unremarkable. Impression: Bilateral L5 pars interarticularis defects, with 1 cm anterolisthesis of L5 over S1. Additional grade 1 retrolistheses of L2 over L3, L3 over L4, and L4 over L5. Advanced degenerative spondylosis, as detailed above. Reviewed, dictated and finalized at [facility]. Impression: Bilateral L5 pars interarticularis defects, with 1 cm anterolisthesis of L5 ove r S1. Additional grade 1 retrolistheses of L2 over L3, L3 over L4, and L4 over L5. Advanced degenerative spondylosis, as detailed above.
== END 2023-05-22 08:37 | disposition home or self-care (01) ==
PROVIDERS: PCP Family Medicine; Visit Provider Nurse Practitioner Adult Health
DX: M47.816 Spondylosis without myelopathy or radiculopathy, lumbar region (principal); M47.812 Spondylosis without myelopathy or radiculopathy, cervical region; M43.17 Spondylolisthesis, lumbosacral region; M43.16 Spondylolisthesis, lumbar region
CPT/HCPCS: 72148; 72156; A9577

== ENCOUNTER 2023-06-09 10:15 | Outpatient (CLI) | payer MEDICARE, SELFPAY ==
--- NOTE | ~2023-06-09 | XR_ITS ---
XR sacroiliac joints min 3V DATE: 06/09/2023 10:48 INDICATION: Pain TECHNIQUE: AP and bilateral oblique views COMPARISON: None FINDINGS: Prominent multilevel degenerative disc disease and degenerative spurring of the lumbar spin e. The pubic symphysis and sacroiliac joints are intact. No fracture, dislocation, erosive change or ank ylosis is noted at the sacroiliac joints. Moderate bilateral hip osteoarthritis Surgical clips overlie the prostate bed. IMPRESSION: Unremarkable sacroiliac joints Severe multilevel degenerative disease and spurring of the lumbar spine Moderate bilateral hip osteoarthritis. Reviewed, dictated and finalized at Location A. Reviewed, dictated and finalized at location B.
--- NOTE | ~2023-06-09 | XR_ITS ---
Bilateral Hands Technique: PA, oblique, and lateral views, and ball-catcher's view were obtained. Clinical History: Arthritis Findings: No acute fracture or dislocation is seen. Osseous alignment is anatomic. There is mild oste oarthritis of the interphalangeal joint of the right thumb. Remaining joint spaces bilaterally are we ll preserved. Soft tissues are unremarkable. Impression: Mild osteoarthritis of the interphalangeal joint of the right thumb. Reviewed, dictated and finalized at location M. Impression: Mild osteoarthritis of the interphalangeal joint of the right thumb.
[2023-06-09 11:44] LABS: Hematocrit 36.9 % (42.0-52.0); Hemoglobin 12.3 g/dL (14.0-18.0); Mean Corpuscular HGB Conc 33.3 g/dl (32-36); Mean Corpuscular Hemoglobin 33.6 pg (26-34); Mean Corpuscular Volume 100.8 fl (80-100); Platelet Count Result 124 k/mm3 (150-375); Red Blood Count 3.66 M/mm3 (4.6-6.20); Red Cell Distribution Width 13.2 % (11.5-14.5); White Blood Count 3.4 K/mm3 (4.5-10.0)
[2023-06-09 11:47] LABS: Uric Acid 7.9 mg/dL (3.5-8.5)
[2023-06-09 11:49] LABS: Alanine Aminotransferase 24 U/L (6-50); Albumin Level 3.8 g/dL (3.5-5.1); Alkaline Phosphatase 54 U/L (38-126); Anion Gap 4 mmol/L (4-12); Aspartate Amino Transferase 31 U/L (17-59); Bilirubin,Total 0.4 mg/dL (0.2-1.3); Blood Urea Nitrogen 17 mg/dL (9-20); CRP < 0.5 mg/dL (<1.0); Calcium 9.8 mg/dL (8.4-10.2); Carbon Dioxide 26 mmol/L (22-30); Chloride 107 mmol/L (98-107); Estimated Glomerular Filt Rate > 60; Glucose 110 mg/dL (65-110); Potassium 4.6 mmol/L (3.4-5.0); Sodium 137 mmol/L (137-145)
[2023-06-09 11:51] LABS: Rheumatoid Factor < 12.0 IU/ML (<12)
[2023-06-09 11:55] LABS: Appearance Urine Clear (Clear); Bilirubin Urine Negative (Negative); Blood Urine Negative (Negative); Color Urine Yellow (Yellow); Glucose Urine UA Negative (Negative); Ketones Urine Negative (Negative); Leukocyte Esterase Ur Negative LEU/UL (Negative); Nitrate Urine Negative (Negative); Protein Urine Negative (Negative); Specific Grav Ur 1.009 (1.001-1.035); Urobilinogen Urine 0.2 mg/dL (<2.0); pH Urine 5.5 (5.0-9.0)
[2023-06-09 11:56] LABS: Add Urine Microscopic? NO
[2023-06-09 12:34] LABS: Erythrocyte Sedimentation Rate 20 mm/hr (0-20)
[2023-06-11 19:23] LABS: HLA B27 Negative (Negative)
== END 2023-06-09 10:16 | disposition home or self-care (01) ==
LOC: ANHIMG 10:15
PROVIDERS: PCP Family Medicine; Visit Provider Internal Medicine
DX: M06.09 Rheumatoid arthritis without rheumatoid factor, multiple sites (principal); M47.816 Spondylosis without myelopathy or radiculopathy, lumbar region; M51.36 Other intervertebral disc degeneration, lumbar region; M25.78 Osteophyte, vertebrae; M19.041 Primary osteoarthritis, right hand; M16.0 Bilateral primary osteoarthritis of hip; Z79.899 Other long term (current) drug therapy
CPT/HCPCS: 36415; 72202; 73130; 80053; 81003; 84550; 85027; 85652; 86038; 86039; 86140; 86430; 86812

== ENCOUNTER 2023-09-02 09:42 | Outpatient (CLI) | payer MEDICARE, SELFPAY ==
--- NOTE | 2023-09-02 09:58 | ECG_ITS ---
Test Date: 2023-09-02 10:06:55 Measurements Intervals Ray Rate: 89 P: 74 MT: 235 QRS: -15 QRSD: 90 T: 32 QT: 370 QTc: 450 Interpretive Statements SINUS RHYTHM WITH FIRST DEGREE AV BLOCK SEPTAL MYOCARDIAL INFARCTION , OF INDETERMINATE AGE [40+ ms Q WAVE IN V1/V2] No previous ECG available for comparison Electronically Signed On 09-02-2023 11:55:15 CDT by Frannie Szymanski M.D.
== END 2023-09-02 09:43 | disposition home or self-care (01) ==
LOC: ANHCARD 09:44
PROVIDERS: PCP Family Medicine; Visit Provider Nurse Practitioner Family
DX: Z01.818 Encounter for other preprocedural examination (principal); I44.0 Atrioventricular block, first degree
CPT/HCPCS: 93005

== ENCOUNTER 2023-09-18 11:28 | Emergency (ER) | payer MEDICARE, SELFPAY ==
--- NOTE | ~2023-09-18 | XR_ITS ---
Clinical Indication: Hypotension AP and lateral views of the chest: Comparison: 03/18/2022 Findings: The lungs are clear, without evidence of focal consolidation or pleural effusion. Cardiome diastinal silhouette is within normal limits. Bones and soft tissues are unremarkable. Impression: Normal chest. Reviewed, dictated and finalized at location . Impression: Normal chest.
[2023-09-18 11:30] VITALS: BP 134/65; PULSE 75; RESP 16; TEMP 36.3; O2SAT 96
--- NOTE | 2023-09-18 12:06 | ECG_ITS ---
Test Date: 2023-09-18 12:12:41 Measurements Intervals [place] Rate: 67 P: 83 WV: 246 QRS: 5 QRSD: 96 T: 33 QT: 447 QTc: 475 Interpretive Statements SINUS RHYTHM WITH FIRST DEGREE AV BLOCK INCOMPLETE RIGHT BUNDLE BRANCH BLOCK BORDERLINE ECG Compared to ECG 09/02/2023 10:06:55 NO SIGNIFICANT CHANGE Electronically Signed On 09-18-2023 12:33:27 CDT by John Madison D.O.
[2023-09-18 12:24] LABS: Basophils Absolute Auto 0.1 K/mm3 (0.0-0.1); Basophils Percent Auto 1.5 % (0.2-1.2); Hematocrit 35.1 % (42.0-52.0); Hemoglobin 11.9 g/dL (14.0-18.0); Immature Granulocyte Absolute 0.01 K/mm3 (0.00-0.031); Immature Granulocyte Percent A 0.2 % (0-0.5); Lymphocytes Absolute Auto 0.72 K/mm3 (0.9-3.2); Lymphocytes Percent Auto 17.6 % (18.3-44.2); Mean Corpuscular HGB Conc 33.9 g/dl (32-36); Mean Corpuscular Hemoglobin 32.4 pg (26-34); Mean Corpuscular Volume 95.6 fl (80-100); Mean Platelet Volume 9.9 fl (7.4-10.4); Monocytes Absolute Auto 0.9 K/mm3 (0.1-0.6); Monocytes Percent Auto 22.8 % (2.6-8.5); Neutrophils Absolute Auto 2.4 K/mm3 (1.3-6.7); Neutrophils Percent Auto 57.9 % (45.5-73.1); Platelet Count Result 127 k/mm3 (150-375); Red Blood Count 3.67 M/mm3 (4.6-6.20); Red Cell Distribution Width 13.2 % (11.5-14.5); White Blood Count 4.1 K/mm3 (4.5-10.0)
[2023-09-18 12:34] LABS: Appearance Urine Clear (Clear); Bilirubin Urine Negative (Negative); Blood Urine Negative (Negative); Color Urine Yellow (Yellow); Glucose Urine UA Negative (Negative); Ketones Urine Negative (Negative); Leukocyte Esterase Ur Negative LEU/UL (Negative); Nitrate Urine Negative (Negative); Protein Urine Negative (Negative); Specific Grav Ur 1.015 (1.001-1.035); Urobilinogen Urine 0.2 mg/dL (<2.0)
[2023-09-18 12:39] LABS: Alanine Aminotransferase 16 U/L (6-50); Albumin Level 3.7 g/dL (3.5-5.1); Alkaline Phosphatase 53 U/L (38-126); Anion Gap 9 mmol/L (4-12); Aspartate Amino Transferase 28 U/L (17-59); Bilirubin,Total 0.4 mg/dL (0.2-1.3); Blood Urea Nitrogen 12 mg/dL (9-20); Calcium 9.5 mg/dL (8.4-10.2); Carbon Dioxide 26 mmol/L (22-30); Chloride 105 mmol/L (98-107); Estimated CRCL calculation 79 ml/min; Estimated Glomerular Filt Rate > 60; Glucose 106 mg/dL (65-110); Potassium 4.3 mmol/L (3.4-5.0); Sodium 140 mmol/L (137-145)
[2023-09-18 12:43] LABS: Add Urine Microscopic? NO
[2023-09-18 12:54] VITALS: BP 128/69; PULSE 67
[2023-09-18 12:55] VITALS: BP 122/65; PULSE 68
[2023-09-18 12:56] VITALS: BP 120/65; PULSE 71
--- NOTE | 2023-09-18 13:03 | ED.RECABL ---
HPI - Recheck/Abnormal Lab/Rx General Chief Complaint: Recheck/Abnormal Lab/Rx Stated Complaint: low bp Time Seen by Provider: 09/18/23 12:44 Source: patient History of Present Illness HPI narrative: 72 YEARS OLD WHITE MALE CAME TO THE EMERGENCY ROOM BY PRIVATE CAR BECAUSE HIS BLOOD PRESSURE NUMBER AT HOME IS 106/60 AND 104/56 AND 112/62. PATIENT BEEN CHECKING HIS BLOOD PRESSURE MORE FREQUENT LATELY. WAS SEEN BY HIS ELECTROMECHANICAL ASSEMBLER AT [facility] FOR LIGHTHEADEDNESS AND DIZZINESS, HAD A HOLTER MONITOR FOR 1 WEEK WHICH SHOWED NO ACUTE ABNORMALITIES, USED TO BE ON LISINOPRIL 2.5 MG ONCE A DAY WHICH STOPPED BY HIS ELECTROMECHANICAL ASSEMBLER AT THAT TIME. CURRENTLY PATIENT ON SOTALOL 80 MG TWICE A DAY. BLOOD PRESSURE ON ARRIVAL TO THE ED IS 134/65. PATIENT'S IS TELLING ME THAT PATIENT IS WEAK LATELY. PATIENT DENIES ANY SYMPTOMS. NO FEVER, NO CHILLS Related Data Home Medications Medication Instructions Recorded Confirmed vitamin B complex (B 1 tablet PO BID 06/25/20 08/10/23 Complex-Vitamin B12 tablet) finasteride 5 mg tablet 5 mg PO DAILY 05/07/21 08/10/23 relugolix 120 mg tablet (Orgovyx) 120 mg PO DAILY 05/20/22 08/10/23 tamsulosin 0.4 mg capsule 0.4 mg PO DAILY 05/20/22 08/10/23 apixaban 5 mg tablet (Eliquis) 5 mg PO BID 06/09/22 08/10/23 ipratropium bromide 17 2 puff inhalation QID 06/09/22 08/10/23 mcg/actuation HFA aerosol inhaler (Atrovent HFA) folic acid 1 mg tablet 1 mg PO DAILY 11/12/22 08/10/23 vibegron 75 mg tablet (Gemtesa) 75 mg PO DAILY 06/03/23 08/10/23 prednisone 5 mg tablet 5 mg PO BID 08/10/23 08/10/23 Allergies Allergy/AdvReac Type Severity Reaction Status Date / Time No Known Allergies Allergy Verified 09/18/23 12:58 Review of Systems Review of Systems: All systems reviewed & are unremarkable except as noted in HPI and below PMFSH Past Medical History Medical History Acute right-sided low back pain without sciatica Anemia Anxiety Anxiety due to invasive procedure Asthma Atrial fibrillation Bulging discs Cervical spondylosis Colonoscopy planned Counseling on health promotion and disease prevention Degenerative joint disease of cervical and lumbar spine Elevated fasting glucose Elevated PSA Encounter for medication management Essential (primary) hypertension Gastroesophageal reflux disease without esophagitis Gout, unspecified Hemorrhoids Hydrocele Hyperlipidemia Inflammatory arthritis Low BP Lumbar back pain Lumbar degenerative disc disease Lumbar spondylitis Lumbar spondylolysis Neck pain On statin therapy Osteoarthritis, hand Paroxysmal atrial fibrillation Prostate cancer Prostate enlargement Right foot pain RLQ abdominal pain Seronegative rheumatoid arthritis Symptomatic cholelithiasis Unspecified asthma, uncomplicated Unspecified osteoarthritis, unspecified site Surgical History Surgical History H/O elbow surgery H/O hand surgery H/O hemorrhoidectomy Multiple hemorrhoid ligation (Transanal hemorrhoid dearterialization procedure) on 06/16/[address] Conley H/O left knee surgery H/O shoulder surgery History of cardiac radiofrequency ablation Hx laparoscopic cholecystectomy Family History Family History Mother Family history of kidney disease Family history of renal failure Diabetes mellitus Father Carcinoma of colon Sibling No problems noted. Social History Social History Social History: Caffeine-coffee Smoking packs per day: 1 Smoking cigarettes per day: 20.0 Years smoked: 16 Smoking pack-years: 16.00 Smoking status: Former smoker Tobacco type: cigarettes Second hand tobacco smoke exposure: No Smoking end date: 09/07/87 Alcohol intake: current Drinks per week: 21 Substance use: never Substance use ty
[2023-09-18 13:36] VITALS: BP 115/69; PULSE 69; RESP 18; O2SAT 96
== END 2023-09-18 13:39 | disposition home or self-care (01) ==
PROVIDERS: Emergency Medicine; Emergency Provider Emergency Medicine; PCP Family Medicine
DX: R53.1 Weakness (principal); I48.0 Paroxysmal atrial fibrillation; I10 Essential (primary) hypertension; J45.909 Unspecified asthma, uncomplicated; E78.5 Hyperlipidemia, unspecified; D64.9 Anemia, unspecified; M06.00 Rheumatoid arthritis without rheumatoid factor, unspecified site; M10.9 Gout, unspecified; M47.816 Spondylosis without myelopathy or radiculopathy, lumbar region; M47.812 Spondylosis without myelopathy or radiculopathy, cervical region; M19.049 Primary osteoarthritis, unspecified hand; K21.9 Gastro-esophageal reflux disease without esophagitis; F41.9 Anxiety disorder, unspecified; Z87.891 Personal history of nicotine dependence; Z85.46 Personal history of malignant neoplasm of prostate; Z90.49 Acquired absence of other specified parts of digestive tract; Z79.01 Long term (current) use of anticoagulants; Z79.899 Other long term (current) drug therapy; Z79.52 Long term (current) use of systemic steroids; I44.0 Atrioventricular block, first degree; I45.10 Unspecified right bundle-branch block
CPT/HCPCS: 36415; 71046; 80053; 81003; 85025; 93005; 99283

== ENCOUNTER 2023-11-04 05:50 | Day surgery (SDC) | payer MEDICARE, SELFPAY ==
[2023-10-08 10:22] VITALS: BMI 28.5
[2023-10-19 13:49] VITALS: BMI 27.8
--- NOTE | 2023-11-03 10:05 | WPDANESEPPF ---
Anes - Initial Pre Proc Eval Procedure: Operation Date: 11/04/23 07:30 Proposed Procedures p Diagnostic Colonoscopy - Richie Chávez MD Date/Time: 11/03/23 10:05 Surgeon: Richie Chávez MD Pre Op Diagnosis: Anemia, Other Fecal Abnormalities Patient Data Age: 73 Gender: M Height: 1.83 m Weight: 93 kg Allergies Allergy/AdvReac Type Severity Reaction Status Date / Time No Known Allergies Allergy Verified 11/04/23 06:25 Home Medications Medication Instructions Recorded Confirmed Type vitamin B complex (B 1 tablet PO BID 06/25/20 11/04/23 History Complex-Vitamin B12 tablet) relugolix 120 mg tablet (Orgovyx) 120 mg PO DAILY 05/20/22 11/04/23 History tamsulosin 0.4 mg capsule 0.4 mg PO HS 05/20/22 11/04/23 History apixaban 5 mg tablet (Eliquis) 5 mg PO BID 06/09/22 11/04/23 History ipratropium bromide 17 2 puff inhalation QID 06/09/22 11/04/23 History mcg/actuation HFA aerosol inhaler (Atrovent HFA) hydroxychloroquine 200 mg tablet 400 mg PO DAILY #180 tabs 07/31/23 11/04/23 Rx (Plaquenil) leflunomide 20 mg tablet 20 mg PO DAILY #90 tabs 07/31/23 11/04/23 Rx mirabegron 50 mg tablet,extended 50 mg PO DAILY 09/25/23 11/04/23 History release 24 hr (Myrbetriq) rosuvastatin 20 mg tablet 20 mg PO DAILY #90 tabs 09/28/23 11/04/23 Rx sodium,potassium,mag sulfates 17.5 See Rx Instructions PO .COMPLEX 10/08/23 11/04/23 Rx gram-3.13 gram-1.6 gram oral soln #354 mL (Suprep Bowel Prep Kit) calcium 500 mg tablet 500 mg PO DAILY 10/19/23 11/04/23 History cholecalciferol (vitamin D3) 25 25 mcg PO DAILY 10/19/23 11/04/23 History mcg (1,000 unit) tablet ezetimibe 10 mg tablet 10 mg PO DAILY 10/19/23 11/04/23 History mecobalamin (vitamin B12) 1,000 2,000 mcg PO DAILY 10/19/23 11/04/23 History mcg chewable tablet omega 6-cmv-rox-fish oil 1,200 mg 2 cap PO DAILY 10/19/23 11/04/23 History (144 mg-216 mg) capsule (Fish Oil) sotalol 80 mg tablet 80 mg PO BID 10/19/23 11/04/23 History Patient hx anesthesia problems: none Family hx anesthesia problems: none Results Review: All pre-operative results and documents have been reviewed as part of the pre-operative evaluation. [facility] Past Medical History Medical History (Updated 11/03/23 @ 10:05 by Linus Barbosa, DO) Acute right-sided low back pain without sciatica Anemia Anxiety Anxiety due to invasive procedure Asthma Atrial fibrillation Bulging discs Cervical spondylosis Colonoscopy planned Counseling on health promotion and disease prevention Degenerative joint disease of cervical and lumbar spine Elevated fasting glucose Elevated PSA Encounter for medication management Essential (primary) hypertension Gastroesophageal reflux disease without esophagitis Gout, unspecified Hemorrhoids Hydrocele Hyperlipidemia Inflammatory arthritis Low BP Lumbar back pain Lumbar degenerative disc disease Lumbar spondylitis Lumbar spondylolysis Neck pain On statin therapy JUDY (obstructive sleep apnea) Osteoarthritis, hand Paroxysmal atrial fibrillation Prostate cancer Prostate enlargement Right foot pain RLQ abdominal pain Seronegative rheumatoid arthritis Symptomatic cholelithiasis Unspecified asthma, uncomplicated Unspecified osteoarthritis, unspecified site Surgical History Surgical History H/O elbow surgery H/O hand surgery H/O hemorrhoidectomy Multiple hemorrhoid ligation (Transanal hemorrhoid dearterialization procedure) on 06/16/[address] Conley H/O left knee surgery H/O shoulder surgery History of cardiac radiofrequency ablation Hx laparoscopic cholecystectomy Family History Family History Mother Family history of kidney disease Family history of renal failure Diabetes mellitus Father Carcinoma of colon Sibling No problems noted. Social History Social History (Reviewed
[2023-11-04 06:22] VITALS: BP 132/73; PULSE 69; RESP 18; TEMP 36.5; O2SAT 99
[2023-11-04] MEDS: LACTATED RINGERS 1,000 ML 150 ML IV CONT (06:31)
--- NOTE | 2023-11-04 07:26 | PM.HPGS ---
History of Present Illness History of Present Illness Consent: Risks, benefits, and alternatives have been discussed and questions answered. Patient agrees to proceed with procedure. Chief complaint: Anemia, Other Fecal Abnormalities Narrative: Akhil Whittaker is a 73 year old male referred for colonoscopy. Patient recently found to have mild anemia. Stool was found to be Hemoccult positive. Patient denies abdominal pain. He states he occasionaly has blood with wiping. One year ago choroid surgery. Family history is noncontributory. Patient referred for colonoscopy today. Review of Systems Review of Systems: All systems reviewed & are unremarkable except as noted in HPI and below PMFSH Past Medical History Medical History (Updated 11/03/23 @ 10:05 by Linus Barbosa, ) Acute right-sided low back pain without sciatica Anemia Anxiety Anxiety due to invasive procedure Asthma Atrial fibrillation Bulging discs Cervical spondylosis Colonoscopy planned Counseling on health promotion and disease prevention Degenerative joint disease of cervical and lumbar spine Elevated fasting glucose Elevated PSA Encounter for medication management Essential (primary) hypertension Gastroesophageal reflux disease without esophagitis Gout, unspecified Hemorrhoids Hydrocele Hyperlipidemia Inflammatory arthritis Low BP Lumbar back pain Lumbar degenerative disc disease Lumbar spondylitis Lumbar spondylolysis Neck pain On statin therapy JUDY (obstructive sleep apnea) Osteoarthritis, hand Paroxysmal atrial fibrillation Prostate cancer Prostate enlargement Right foot pain RLQ abdominal pain Seronegative rheumatoid arthritis Symptomatic cholelithiasis Unspecified asthma, uncomplicated Unspecified osteoarthritis, unspecified site Surgical History Surgical History H/O elbow surgery H/O hand surgery H/O hemorrhoidectomy Multiple hemorrhoid ligation (Transanal hemorrhoid dearterialization procedure) on 06/16/[address] Conley H/O left knee surgery H/O shoulder surgery History of cardiac radiofrequency ablation Hx laparoscopic cholecystectomy Family History Family History Mother Family history of kidney disease Family history of renal failure Diabetes mellitus Father Carcinoma of colon Sibling No problems noted. Social History Social History Social History: Caffeine-coffee Smoking packs per day: 1 Smoking cigarettes per day: 20.0 Years smoked: 16 Smoking pack-years: 16.00 Smoking status: Former smoker Tobacco type: cigarettes Second hand tobacco smoke exposure: No Smoking end date: 09/07/87 Alcohol intake: current Drinks per week: 8 Substance use: never Substance use type: does not use Lack of Transportation: No Lack of Food: Never True Current Housing: I Have Housing Concerned About Future Housing: No Difficulty Paying Gas/Electric Bills: No Difficulty Paying for Meds: No Currently Unemployed: No Education: Bachelor's Degree Difficulty w/ Childcare or Family Care: No Living arrangements: with family Additional living arrangements comments: Occupation/Education: 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
[2023-11-04] MEDS: SIMETHICONE ORAL SUSPENSION 20 MG/0.3 ML 30 ML BOTTLE 0.6 ML IRRIGATION (07:40)
[2023-11-04 07:49] VITALS: BP 91/50; PULSE 58; RESP 15; O2SAT 97
[2023-11-04 07:59] VITALS: BP 106/62; PULSE 57; RESP 16; O2SAT 98
[2023-11-04 08:09] VITALS: BP 122/61; PULSE 58; RESP 16; O2SAT 100
--- NOTE | 2023-11-04 11:34 | WPDANESPN ---
Anes - Prog Note Post-Op Date/Time: 11/04/23 11:34 Cardiovascular status: normal Respiratory status: normal Airway patency: baseline Mental status: baseline Post-Op hydration status: normal Vital Signs: Last Vital Signs Temp 36.5 C 11/04/23 06:22 Pulse 58 L 11/04/23 08:09 Resp 16 11/04/23 08:09 BP 122/61 11/04/23 08:09 Pulse Ox 100 11/04/23 08:09 O2 Del Method Room Air 11/04/23 08:09 Pain Score (VAS): 0 I/O: Intake & Output 11/03/23 11/04/23 11/04/23 23:59 07:59 15:59 Intake Total 400 250 Balance 400 250 Post-procedural complaints: none Patient Feedback: Patient satisfied with anesthetic care. Other Findings: Patient vital signs back to baseline. Patient denies nausea and vomiting. Patient's pain under control. Patient OK for discharge.
== END 2023-11-04 08:22 | disposition home or self-care (01) ==
PROVIDERS: PCP Family Medicine; Visit Provider Internal Medicine Gastroenterology
PROC: 0DJD8ZZ Inspection of Lower Intestinal Tract, Via Natural or Artificial Opening Endoscopic (ICD-10-PCS; CPT 45378; principal; 2023-11-04 07:30)
DX: R19.5 Other fecal abnormalities (principal); Z12.11 Encounter for screening for malignant neoplasm of colon; K62.89 Other specified diseases of anus and rectum; K64.8 Other hemorrhoids
CPT/HCPCS: 45378

== ENCOUNTER 2024-02-23 01:12 | Day surgery (SDC) | payer MEDICARE, SELFPAY ==
[2024-02-17 12:01] VITALS: BMI 27.1
--- NOTE | 2024-02-17 12:29 | PC.NURSE ---
Spoke with PATIENT regarding medication ELIQUIS. PATIENT verbalizes understanding that the last dose is to be taken on 02/19/2024 and the Endoscopist will instruct them when to restart after the procedure.
[2024-02-23 09:53] VITALS: BP 138/69; PULSE 80; RESP 18; TEMP 36.1; O2SAT 98
--- NOTE | 2024-02-23 09:57 | P.PNAN_ITS ---
Anes - Initial Pre Proc Eval Procedure: Operation Date: 02/23/24 11:00 Proposed Procedures p Flexible Sigmoidoscopy - Mario Shen MD Date/Time: 02/23/24 09:57 Surgeon: Mario Shen MD Pre Op Diagnosis: radiation proctitis, Melena, noninfective Patient Data Age: 73 Gender: M Height: 1.83 m Weight: 90.5 kg Last Vital Signs Temp 36.1 C L 02/23/24 09:53 Pulse 80 02/23/24 09:53 Resp 18 02/23/24 09:53 BP 138/69 02/23/24 09:53 Pulse Ox 98 02/23/24 09:53 O2 Del Method Room Air 02/23/24 09:53 Allergies Allergy/AdvReac Type Severity Reaction Status Date / Time No Known Allergies Allergy Verified 02/23/24 09:51 Home Medications ?Medication ?Instructions ?Recorded ?Confirmed ?Type vitamin B complex (B 1 tablet PO BID 06/25/20 02/17/24 History Complex-Vitamin B12 tablet) relugolix 120 mg tablet (Orgovyx) 120 mg PO DAILY 05/20/22 02/23/24 History tamsulosin 0.4 mg capsule 0.4 mg PO HS 05/20/22 02/23/24 History apixaban 5 mg tablet (Eliquis) 5 mg PO BID 06/09/22 02/23/24 History ipratropium bromide 17 2 puff inhalation QID 06/09/22 02/23/24 History mcg/actuation HFA aerosol inhaler (Atrovent HFA) mirabegron 50 mg tablet,extended 50 mg PO DAILY 09/25/23 02/17/24 History release 24 hr (Myrbetriq) rosuvastatin 20 mg tablet 20 mg PO DAILY #90 tabs 09/28/23 02/23/24 Rx calcium 500 mg tablet 500 mg PO DAILY 10/19/23 02/23/24 History cholecalciferol (vitamin D3) 25 25 mcg PO DAILY 10/19/23 02/23/24 History mcg (1,000 unit) tablet ezetimibe 10 mg tablet 10 mg PO DAILY 10/19/23 02/23/24 History mecobalamin (vitamin B12) 1,000 2,000 mcg PO DAILY 10/19/23 02/23/24 History mcg chewable tablet omega 0-xni-fpg-fish oil 1,200 mg 2 cap PO DAILY 10/19/23 02/23/24 History (144 mg-216 mg) capsule (Fish Oil) hydrocortisone 2.5 % topical cream 1 applic topical DAILY PRN itching 11/20/23 02/17/24 Rx #20 grams sotalol 80 mg tablet 80 mg PO BID #60 tabs 11/27/23 02/23/24 Rx leflunomide 20 mg tablet 20 mg PO DAILY #90 tabs 02/08/24 02/23/24 Rx amlodipine 2.5 mg tablet 2.5 mg PO HS 02/17/24 02/23/24 History ferrous sulfate 325 mg (65 mg 325 mg PO BID 02/17/24 02/23/24 History iron) tablet mirabegron 25 mg tablet,extended 25 mg PO Q24H 02/17/24 02/23/24 History release 24 hr (Myrbetriq) vibegron 75 mg tablet (Gemtesa) 75 mg PO DAILY 02/17/24 02/23/24 History hydroxychloroquine 200 mg tablet 400 mg (2 x 200 mg) PO DAILY #180 02/19/24 02/23/24 Rx (Plaquenil) tabs Patient hx anesthesia problems: none Family hx anesthesia problems: none Results Review: All pre-operative results and documents have been reviewed as part of the pre- operative evaluation. [facility] Past Medical History Medical History JUDY (obstructive sleep apnea) Encounter for medication management Counseling on health promotion and disease prevention Anxiety Degenerative joint disease of cervical and lumbar spine Seronegative rheumatoid arthritis Inflammatory arthritis Lumbar spondylolysis Bulging discs Anxiety due to invasive procedure Lumbar spondylitis Cervical spondylosis Neck pain Lumbar back pain Low BP Anemia Prostate cancer Hemorrhoids On statin therapy Elevated fasting glucose Osteoarthritis, hand Right foot pain Colonoscopy planned Asthma Symptomatic cholelithiasis Lumbar degenerative disc disease Hydrocele Prostate enlargement RLQ abdominal pain Atrial fibrillation Elevated PSA Acute right-sided low back pain without sciatica Essential (primary) hypertension Gastroesophageal reflux disease without esophagitis Gout, unspecified Hyperlipidemia Paroxysmal atrial fibrillation Unspecified asthma, uncomplicated Unspecified osteoarthritis, unspecified site Surgical History Surgical History H/O hemorrhoidectomy Multiple hemorrhoid ligation (Transanal hemorrhoid dearterialization procedure) on 06/16/[address] Jarvis [place] laparoscopic cholecystectomy H/O left knee surgery H/O elbow surgery H/O hand surgery H/O shoulder surgery History of cardiac radiofrequency ablation Family History Family History Mother Family history of kidney disease Family history of renal failure Diabetes mellitus Father Carcinoma of colon Sibling No problems noted. Social History Social History Social History: Caffeine-coffee Smoking packs per day: 1 Smoking cigarettes per day: 20.0 Years smoked: 16 Smoking pack-years: 16.00 Smoking status: Former smoker Tobacco type: cigarettes Second hand tobacco smoke exposure: No Smoking end date: 09/07/87 Alcohol intake: current Drinks per week: 8 Substance use: never Substance use type: does not use Lack of Transportation: No Lack of Food: Never True Current Housing: I Have Housing Concerned About Future Housing: No Difficulty Paying Gas/Electric Bills: No Difficulty Paying for Meds: No Currently Unemployed: No Education: Bachelor's Degree Difficulty w/ Childcare or Family Care: No Living arrangements: with family Additional living arrangements comments: Occupation/Education: 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 Informed Consent: The patient's anesthetic plan and its attendant risks and benefits were discussed with the patient/family/POA. Questions were solicited and answers provided to the satisfaction of the patient/family/POA.
[2024-02-23] MEDS: LACTATED RINGERS 1,000 ML 150 ML IV CONT (10:06)
--- NOTE | 2024-02-23 11:22 | PM.IMHP ---
H&P: HPI History of Present Illness Date/Time: 02/23/24 11:22 Chief Complaint: Rectal bleeding Narrative: this patient has a history of prostate cancer status post radiotherapy. He has intermittent rectal bleeding. His last colonoscopy was in October this year finding hemorrhoids and some radiation proctitis. He is here for sigmoidoscopy and possible argon plasma coagulation ablation if feasible. Review of Systems Review of Systems: All systems reviewed & are unremarkable except as noted in HPI and below PMFSH Past Medical History Medical History JUDY (obstructive sleep apnea) Encounter for medication management Counseling on health promotion and disease prevention Anxiety Degenerative joint disease of cervical and lumbar spine Seronegative rheumatoid arthritis Inflammatory arthritis Lumbar spondylolysis Bulging discs Anxiety due to invasive procedure Lumbar spondylitis Cervical spondylosis Neck pain Lumbar back pain Low BP Anemia Prostate cancer Hemorrhoids On statin therapy Elevated fasting glucose Osteoarthritis, hand Right foot pain Colonoscopy planned Asthma Symptomatic cholelithiasis Lumbar degenerative disc disease Hydrocele Prostate enlargement RLQ abdominal pain Atrial fibrillation Elevated PSA Acute right-sided low back pain without sciatica Essential (primary) hypertension Gastroesophageal reflux disease without esophagitis Gout, unspecified Hyperlipidemia Paroxysmal atrial fibrillation Unspecified asthma, uncomplicated Unspecified osteoarthritis, unspecified site Surgical History Surgical History H/O hemorrhoidectomy Multiple hemorrhoid ligation (Transanal hemorrhoid dearterialization procedure) on 06/16/[address] Jarvis [place] laparoscopic cholecystectomy H/O left knee surgery H/O elbow surgery H/O hand surgery H/O shoulder surgery History of cardiac radiofrequency ablation Family History Family History Mother Family history of kidney disease Family history of renal failure Diabetes mellitus Father Carcinoma of colon Sibling No problems noted. Social History Social History Social History: Caffeine-coffee Smoking packs per day: 1 Smoking cigarettes per day: 20.0 Years smoked: 16 Smoking pack-years: 16.00 Smoking status: Former smoker Tobacco type: cigarettes Second hand tobacco smoke exposure: No Smoking end date: 09/07/87 Alcohol intake: current Drinks per week: 8 Substance use: never Substance use type: does not use Lack of Transportation: No Lack of Food: Never True Current Housing: I Have Housing Concerned About Future Housing: No Difficulty Paying Gas/Electric Bills: No Difficulty Paying for Meds: No Currently Unemployed: No Education: Bachelor's Degree Difficulty w/ Childcare or Family Care: No Living arrangements: with family Additional living arrangements comments: Occupation/Education: retired 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 Gender identity (if verbalized by the patient): Male Spiritual care concerns: No Meds Home Medications and Allergies Home Medications ?Medication ?Instructions ?Recorded ?Confirmed ?Type vitamin B complex (B 1 tablet PO BID 06/25/20 02/17/24 History Complex-Vitamin B12 tablet) relugolix 120 mg tablet (Orgovyx) 120 mg PO DAILY 05/20/22 02/23/24 History tamsulosin 0.4 mg capsule 0.4 mg PO HS 05/20/22 02/23/24 History apixaban 5 mg tablet (Eliquis) 5 mg PO BID 06/09/22 02/23/24 History ipratropium bromide 17 2 puff inhalation QID 06/09/22 02/23/24 History mcg/actuation HFA aerosol inhaler (Atrovent HFA) mirabegron 50 mg tablet,extended 50 mg PO DAILY 09/25/23 02/17/24 History release 24 hr (Myrbetriq) rosuvastatin 20 mg tablet 20 mg PO DAILY #90 tabs 09/28/23 02/23/24 Rx calcium 500 mg tablet 500 mg PO DAILY 10/19/23 02/23/24 History cholecalciferol (vitamin D3) 25 25 mcg PO DAILY 10/19/23 02/23/24 History mcg (1,000 unit) tablet ezetimibe 10 mg tablet 10 mg PO DAILY 10/19/23 02/23/24 History mecobalamin (vitamin B12) 1,000 2,000 mcg PO DAILY 10/19/23 02/23/24 History mcg chewable tablet omega 2-qpr-gel-fish oil 1,200 mg 2 cap PO DAILY 10/19/23 02/23/24 History (144 mg-216 mg) capsule (Fish Oil) hydrocortisone 2.5 % topical cream 1 applic topical DAILY PRN itching 11/20/23 02/17/24 Rx #20 grams sotalol 80 mg tablet 80 mg PO BID #60 tabs 11/27/23 02/23/24 Rx leflunomide 20 mg tablet 20 mg PO DAILY #90 tabs 02/08/24 02/23/24 Rx amlodipine 2.5 mg tablet 2.5 mg PO HS 02/17/24 02/23/24 History ferrous sulfate 325 mg (65 mg 325 mg PO BID 02/17/24 02/23/24 History iron) tablet mirabegron 25 mg tablet,extended 25 mg PO Q24H 02/17/24 02/23/24 History release 24 hr (Myrbetriq) vibegron 75 mg tablet (Gemtesa) 75 mg PO DAILY 02/17/24 02/23/24 History hydroxychloroquine 200 mg tablet 400 mg (2 x 200 mg) PO DAILY #180 02/19/24 02/23/24 Rx (Plaquenil) tabs Allergies Allergy/AdvReac Type Severity Reaction Status Date / Time No Known Allergies Allergy Verified 02/23/24 09:51 Vital Signs Vital Signs - 24 hr 02/23/24 09:53 Temperature 97 F L Pulse Rate 80 Respiratory Rate 18 Blood Pressure 138/69 Pulse Oximetry 98 Oxygen Delivery Room Air Exam Const: General: cooperative and healthy appearing Resp: Effort & Inspection: normal respiratory effort and able to speak in complete sentences Auscultation: clear to auscultation bilaterally Cardio: Rate: regular rate Rhythm: regular rhythm GI: Inspection: normal to inspection GI Palp: No No hepatosplenomegaly present Auscultation: normal bowel sounds Rectal Exam: deferred Skin: General skin exam: normal color Psych: Appearance: grossly normal Mental Status: mental status grossly normal Assessment and Plan Assessment and plan (1) Radiation proctitis: Code(s): K62.7 - Radiation proctitis Status: Acute Assessment and Plan: The patient is deemed a good candidate for the procedure. Consent signed. Will proceed.
[2024-02-23 11:57] VITALS: BP 107/66; PULSE 73; RESP 18; O2SAT 97
[2024-02-23 12:07] VITALS: BP 128/72; PULSE 75; RESP 19; O2SAT 97
[2024-02-23 12:17] VITALS: BP 133/70; PULSE 70; RESP 13; O2SAT 100
== END 2024-02-23 12:29 | disposition home or self-care (01) ==
PROVIDERS: PCP Family Medicine; Referring Provider Nurse Practitioner; Visit Provider Internal Medicine Gastroenterology
PROC: 0DJD8ZZ Inspection of Lower Intestinal Tract, Via Natural or Artificial Opening Endoscopic (ICD-10-PCS; CPT 45330; principal; 2024-02-23 11:00)
DX: K64.1 Second degree hemorrhoids (principal); Q27.33 Arteriovenous malformation of digestive system vessel; K62.7 Radiation proctitis; D64.9 Anemia, unspecified; I10 Essential (primary) hypertension; K21.9 Gastro-esophageal reflux disease without esophagitis; E78.5 Hyperlipidemia, unspecified; G47.33 Obstructive sleep apnea (adult) (pediatric); F41.9 Anxiety disorder, unspecified; M50.30 Other cervical disc degeneration, unspecified cervical region; M19.049 Primary osteoarthritis, unspecified hand; J45.909 Unspecified asthma, uncomplicated; M51.369 Other intervertebral disc degeneration, lumbar region without mention of lumbar back pain or lower extremity pain; N43.3 Hydrocele, unspecified; I48.0 Paroxysmal atrial fibrillation; M06.4 Inflammatory polyarthropathy; M43.06 Spondylolysis, lumbar region; M43.02 Spondylolysis, cervical region; Z79.01 Long term (current) use of anticoagulants; Z79.51 Long term (current) use of inhaled steroids; Z98.890 Other specified postprocedural states; Z90.49 Acquired absence of other specified parts of digestive tract; Z87.891 Personal history of nicotine dependence; Z85.46 Personal history of malignant neoplasm of prostate; Z86.79 Personal history of other diseases of the circulatory system; Z80.0 Family history of malignant neoplasm of digestive organs
CPT/HCPCS: 45346; J2003; J2704; J7120

== ENCOUNTER 2024-03-19 07:08 | Outpatient (CLI) | payer MEDICARE, SELFPAY ==
--- NOTE | ~2024-03-19 | US_ITS ---
US abdomen limited DATE: 03/19/2024 08:15 INDICATION: Assess for cirrhosis TECHNIQUE: Real-time imaging and Doppler analysis COMPARISON: 06/03/2021 CT abdomen pelvis FINDINGS: Status post cholecystectomy. Hepatic steatosis. No hepatic space-occupying mass lesion is evident. There is normal hepatopedal por heather venous flow direction. Slight hepatic surface nodularity is suggested which may indicate cirrhosi s. The pancreas appears unremarkable. No pancreatic duct dilatation. The common bile duct measures 6.4 mm, which may be within limits for this 73-year-old postcholecystec geovanna patient. IMPRESSION: Suggestion of slight hepatic surface nodularity, which may indicate cirrhosis Normal hepatopedal portal venous flow direction Status post cholecystectomy Reviewed, dictated and finalized at [facility] Reviewed, dictated and finalized at [facility] [employer]
== END 2024-03-19 07:09 | disposition home or self-care (01) ==
PROVIDERS: PCP Family Medicine; Visit Provider Nurse Practitioner
DX: D69.6 Thrombocytopenia, unspecified (principal); Z90.49 Acquired absence of other specified parts of digestive tract
CPT/HCPCS: 76705

== ENCOUNTER 2024-05-12 00:17 | Day surgery (SDC) | payer MEDICARE, SELFPAY ==
[2024-05-06 14:36] VITALS: BMI 59.8
--- NOTE | 2024-05-06 14:46 | PC.NURSE ---
Spoke with _PATIENT_ regarding medication _ELIQUIS_. _PATIENT_verbalizes understanding that the last dose is to be taken on 05/08/2024 and the Endoscopist will instruct them when to restart after the procedure.
--- OUTSIDE RECORDS SUMMARY | 2024-05-12 00:21 | XMS_ITS | Clinical Summary ---
Author Organization [facility] Address [address] [place] [address] Care Team Providers Care Childrens Club Attendant Name Role Phone Alex Gould MD Primary Care Provider [phone] Allergies No known active allergies Medications atorvastatin (LIPITOR) 40 mg tablet Take one tablet by mouth every day 90 tablet 2 7 Active Additional Information Patient not taking.Reported on 03/21/2024 allopurinol (ZYLOPRIM) 100 mg tablet Take 1 tablet (100 mg total) by mouth 2 (two) times a day 3 7 Active ELIQUIS 5 mg tabletIndicatio ns:start 24 hours following surgery Take 1 tablet (5 mg total) by mouth 2 (two) times a day 6 7 Active lisinopril (PRINIVIL,ZESTR IL) 10 mg tablet Take 1 tablet (10 mg total) by mouth daily 2 7 Active sotalol (BETAPACE) 80 mg tablet Take 1 tablet (80 mg total) by mouth 2 (two) times a day 1 7 Active fenofibric acid 105 mg tablet Take 135 mg by mouth daily. 8 Active ranitidine (ZANTAC) 300 mg capsule Take 1 capsule (300 mg total) by mouth every evening Active cyanocobalamin (Vitamin B-12) 100 mcg tabletIndicatio ns:Prevention of Vitamin B12 Deficiency Take 1 tablet (100 mcg total) by mouth 2 (two) times a day Active at-7-pdk-epa-fi sh oil-vit D3 300-1,000-1,000 mg-mg-unit capsuleIndicati ons:stop 5 days before surgery Take 1,000 mg by mouth 2 (two) times a day Active ipratropium (ATROVENT HFA) 17 mcg/actuation inhaler Inhale 2 puffs 4 (four) times a day as needed Active ascorbic acid (VITAMIN C) 500 mg tablet,chewable Take one tablet twice daily 60 tablet/chew tab 9 Active multivitamin tabletIndicatio ns:Vitamin Deficiency Prevention Take 1 tablet by mouth daily Active hydroxychloroqu ine (PLAQUENIL) 200 mg tablet Take by mouth daily Active leflunomide (ARAVA) 20 mg tabletIndicatio ns:Rheumatoid Arthritis Take 1 tablet (20 mg total) by mouth daily Active tamsulosin (FLOMAX) 0.4 mg extended release capsule 1 capsule (0.4 mg total) Active rosuvastatin (CRESTOR) 20 mg tablet Take 1 tablet (20 mg total) by mouth daily Active ezetimibe (ZETIA) 10 mg tablet Take 1 tablet (10 mg total) by mouth daily Active amLODIPine (NORVASC) 2.5 mg tablet Take 1 tablet (2.5 mg total) by mouth daily Active relugolix (Orgovyx) 120 mg tablet Take by mouth Take at same time each day. Swallow tablets whole; do not crush or chew. Dispense in original container. Active celecoxib (CeleBREX) 100 mg capsule Take 1 capsule (100 mg total) by mouth 2 (two) times a day 60 capsule 2 5 06/20/19 25 Active Active Problems Problem Noted Date Diagnosed Date Arthritis of left acromioclavicular joint 2018 Overview (08/26/2018): Added automatically from request for surgery [id number] Nontraumatic complete tear of left rotator cuff 08/26/2018 Overview (08/26/2018): Added automatically from request for surgery [id number] Biceps tendinitis of left upper extremity 2018 Overview (08/26/2018): Added automatically from request for surgery [id number] Encounters Date Type Department Care Team Description 03/23/2024 Telephone [facility] Medical [facility] Orthopedics and Sports Medicine [address] [place] [address] Shahid Fung MD 03/21/2024 9:00 AM [facility]OCKSTITCH Ancillary Procedure [facility] Imaging at [address] [address] 03/21/2024 8:30 AM [facility] Office Visit [facility]opedic [facility] Medicine [address] [place] [id number] Joaquim Sharp PA Primary osteoarthritis of both wrists (Primary Dx); Ganglion of right wrist from Last 3 Months Surgical History Surgery Date Site/Laterality Comments KNEE ARTHROSCOPY 1965 Open knee surgery EYE SURGERY 1979 repair tear duct CARPAL TUNNEL RELEASE 2011 ROTATOR CUFF REPAIR Right UVULOPALATOPHARYNGOPLASTY ABLATION OF AFIB FLUTTER x 3 Medical History Medical History Date Comments Heart beat abnormality Hypertension High cholesterol Asthma Osteoarthritis Gout Atrial fibrillation (HCC) Neuropathy hands; patient d enies this diagnosis 09/08/18 Family History Medical History Relation Name Comments Diabetes Brother Arthritis Father Cancer Mother Gout Sister Relation Name Status Comments Brother Father Mother Sister Social History Tobacco Use Types Packs/Day Years Used Date Smoking Tobacco: Former Smokeless Tobacco: Former Alcohol Use Standard Drinks/Week Comments Yes 0 (1 standard drink = 0.6 oz pur e alcohol) occasional Sex and Gender Information Value Date Recorded Sex Assigned at Not on file Legal Sex Male 10:06 PM [employer] Gender Identity Not on file Sexual Orientation Not on file Obstetrics History Last Filed Vital Signs Vital Sign Reading Time Taken Comments Blood Pressure 125/74 03/21/2024 8:28 AM [facility] LOCKSTITCH Pulse 66 03/21/2024 8:28 AM [facility] LOCKSTITCH Temperature 37.1 C (98.8 F) 11/20/2022 4:38 PM CDT Respiratory Rate 20 11/20/2022 4:38 PM CDT Oxygen Saturation 97% 11/20/2022 4:38 PM CDT Inhaled Oxygen Concentration - - Weight 92.5 kg (204 lb) 03/21/2024 8:28 AM B[facility]ER LOCKSTITCH Height 182.9 cm (6') 03/21/2024 8:28 AM B[employer] LOCKSTITCH Body Mass Index 27.67 03/21/2024 8:28 AM [facility] L[employer]STITCH Plan of Treatment Health Maintenance Due Date Last Done Comments Colon Cancer Screening-Colonoscopy 1950 Depression Screening 1950 Fall Risk Assessment 1950 Hepatitis C Screening 1950 Hepatitis B Screening 09/21/1967 Abdominal Aortic Aneurysm (AAA) Screen 2014 Well Visit 65+ 2014 Zoster Vaccine (1 of 2) 07/22/2015 05/27/2015, 03/09 Influenza Vaccine (#1) 2023 DTaP/Tdap/Td Vaccine (3 - Td or Tdap) 05/27/2025, 03/09/2014 Pneumococcal vaccine 65+ Completed 05/28/2015, 03/2015 Procedures Procedure Name Priority Date/Time Associated Diagnosis Comments XR WRIST RIGHT 3 OR MORE VIEWS Schedule Routine, Read Routine (OP Routine) 03/21/2024 8:35 AM B[facility]ER LOCKSTITCH Right wrist pain from Last 3 Months Results * XR Wrist Right 3 or More Views (03/21/2024 8:35 AM B[facility]ER LOCKSTITCH) Anatomical Region Laterality Modality Upper Extremities, Wrist Right Digital Radiography Narrative 03/21/2024 8:37 AM B[facility]ER LOCKSTITCH Three views of the right wrist are negative for fracture dislocation or osseous lesion. Advanced arthritic changes are noted with complete [id number] articulation noted in the radiocarpal joint. There is also advanced arthritic changes noted at the DRUJ. Mild to moderate changes noted throughout the intercarpal bones. Joaquim CLIFFORD IMG XR PROCEDURES Final Res ult from Last 3 Months Insurance [employer] [place] [employer] MEDICARE [employer] [place] MEDICARE SOL[employer] Care Teams Childrens Club Attendant Relationship Specialty Start Date End Date Alex Gould MD PCP - General Family Medicine 11/20/22
--- OUTSIDE RECORDS SUMMARY | 2024-05-12 00:21 | XMS_ITS | Referral Summary ---
Author Organization [facility] Address [address] [place] [address] Care Team Providers Care Electric Installer Name Role Phone Unavailable Primary Care Provider Unavailabl e Source Comments [facility],non-owned Affiliates and Associated Physician Practices is amultiple site organization consisting of ambulatory clinics and hospital sitesin [place], [place], [place] and [place]. This disclosure is being madepursuant to the Care Everywhere program and may not contain all information available regarding this patient. Last updated 17.[facility] Allergies No known active allergies Medications * Be aware that medications may not be up to date on this document. Alwaysverify current medications with the patient. Medication Sig Dispensed Refills Start Date End Date Status metoprolol tartrate IR (LOPRESSOR) 50 MG tablet Active allopurinol (ZYLOPRIM) 100 MG tablet Active choline fenofibrate (TRILIPIX) 135 MG capsule Active niacin CR (NIASPAN) 500 MG tablet Active celecoxib (CELEBREX) 200 MG capsule Active diclofenac sodium (VOLTAREN) 75 MG tablet Take 1 Tab by mouth 2 times daily. 180 Tab 4 07/14/2011 Active Active Problems Problem Noted Date Diagnosed Date Congenital spondylolisthesis 07/14/2011 Social History Tobacco Use Types Packs/Day Years Used Date Smoking Tobacco: Never Alcohol Use Standard Drinks/Week Comments Yes 4.2 (1 standard drink = 0.6 oz p ure alcohol) Sex and Gender Information Value Date Recorded Sex Assigned at Not on file Gender Identity Not on file Sexual Orientation Not on file Last Filed Vital Signs Vital Sign Reading Time Taken Comments Blood Pressure - - Pulse - - Temperature - - Respiratory Rate - - Oxygen Saturation - - Inhaled Oxygen Concentration - - Weight 102.1 kg (225 lb) 07/14/2011 2:09 PM CDT Height 182.9 cm (6') 07/14/2011 2:09 PM CDT Body Mass Index 30.52 07/14/2011 2:09 PM CDT Plan of Treatment Not on file [place] [address] Akhil Whittaker Personal/Famil y Self [address] [place] [id number]
--- OUTSIDE RECORDS SUMMARY | 2024-05-12 00:21 | XMS_ITS | CONTINUITY OF CARE DOCUMENT ---
Author Name [facility] Address Unknown Organization [facility] Address [address] [place] [address] Phone [phone] Care Team Providers Care Nailing Machine Feeder Name Role Phone Tawny MEJIA, Mariusz Unavailable [phone] PORFIRIO TOBIN MD Unavailable PORFIRIO TOBIN MD Unavailable [phone] PROBLEMS Condition Status Date Provider Notes HYPERLIPIDEMIA active Isabell Mac ATRIAL FIBRILLATION S/P ABLATIONX2 active T paola Regalado MD PALPITATIONS-01/18 HOLTER SR -1 DEGREE AV BLOCK HR 58-83 active ? Mariusz Hector MD Atrial flutter active Jonathan Mckeon DO ENCOUNTERS Date Type Provider Location Encounter Diag nosis - In-person encounter Office Visit Jonathan Mckeon DO [facility] - In-person encounter Office Visit Katherin Regalado MD [place] [facility] - In-person encounter Office Visit Jonathan Mckeon DO [facility] - In-person encounter Office Visit Jonathan Mckeon DO [facility] Atrial flutter - In-person encounter Office Visit Mariusz Hector MD [place] [facility] - In-person encounter Office Visit Mariusz Hector MD [place] [facility] - In-person encounter Office Visit Mariusz Hector MD [facility] - In-person encounter Office Visit Mariusz Hector MD [facility] - In-person encounter Office Visit Katherin Regalado MD [facility] - In-person encounter Office Visit Telly Garner MD [facility] - In-person encounter Office Visit Mariusz Hector MD [facility] - In-person encounter Office Visit Mariusz Hector MD [place] [facility] - In-person encounter Office Visit Mariusz Hector MD [place] [facility] PALPITATIONS-01/18 HOLTER SR-1 DEGREE AV BLOCK HR 58-83 - In-person encounter Office Visit Katherin Regalado MD [facility] - In-person encounter Office Visit Mariusz Hector MD [facility] - In-person encounter Office Visit Maruisz Hector MD [facility] - In-person encounter Office Visit Mariusz Hector MD [facility] - In-person encounter Office Visit Mariusz Hector MD [facility] - In-person encounter Office Visit Katherin Regalado MD [facility] ATRIAL FIBRILLATION S/P ABLATIONX2 - In-person encounter Office Visit Mariusz Hcetor MD [facility] - In-person encounter Office Visit Mariusz Hector MD [facility] - In-person encounter Office Visit Mariusz Hector MD [facility] - In-person encounter Office Visit Lio Martin MD [facility] PALPITATIONS-01/18 HOLTER SR-1 DEGREE AV BLOCK HR 58-83 - In-person encounter Office Visit Mariusz Hector MD [facility] VITAL SIGNS Date Observation Value Provider Body Mass Index (Ratio) 30.89 kg/m2 Edita Mckeon DO blood pressure, cuff size large Ke rri Gruenenfelder blood pressure, diastolic 80 mm[Hg] Ke rri Gruenenfelder blood pressure, systolic 126 mm[Hg] Ker ri Gruenenfelder oxygen saturation, oximetry 98 % Asha Gruenenfelder respiratory rate E&M 18 /min Asha G ruenenfelder pulse rate 87 /min Asha Gruenenfe lder weight E&M 219 [lb_av] Asha Gruenenfe lder height E&M 70.6 [in_i] Asha Gruenenfe er Body Mass Index (Ratio) 30.89 kg/m2 Oscar Regalado MD blood pressure, cuff size regular Ke rri Gruenenfelder blood pressure, diastolic 84 mm[Hg] Ke rri Gruenenfelder blood pressure, systolic 135 mm[Hg] Claire ri Gruenenfelder oxygen saturation, oximetry 98 % Asha Gruenewarrenelder respiratory rate E&M 18 /min Asha G ruenenfelder pulse rate 110 /min Asha Gruenenfe lder weight E&M 219 [lb_av] Asha Grauroranewarrene lder height E&M 70.6 [in_i] Asha Grauroranenfe er Body Mass Index (Ratio) 30.89 kg/m2 Silverio Patel NP blood pressure, diastolic 70 mm[Hg] Riri Roth blood pressure, systolic 118 mm[Hg] Rosi Roth respiratory rate E&M 17 /min Valerie Roth pulse rate 67 /min Valerie Roth weight E&M 219 [lb_av] Valerie Roth oxygen saturation, oximetry 98 % Valerie Roth height E&M 70.6 [in_i] Valerie Roth Body Mass Index (Ratio) 30.89 kg/m2 Edita Mckeon DO pulse rate 68 /min Marga Silvestre respiratory rate E&M 18 /min Marga Silvestre oxygen saturation, oximetry 99 % Marga Silvestre blood pressure, diastolic 60 mm[Hg] Ronan Silvestre blood pressure, systolic 115 mm[Hg] Vishal Silvestre blood pressure, cuff size regular Ronan Silvestre weight E&M 219 [lb_av] Marga Silvestre height E&M 70.6 [in_i] Marga Silvestre Body Mass Index (Ratio) 30.75 kg/m2 Flakito Hector MD blood pressure, cuff size regular vincent Hurtado blood pressure, diastolic 80 mm[Hg] vincent Hurtado blood pressure, systolic 134 mm[Hg] Claire Hurtado oxygen saturation, oximetry 97 % Asha Hurtado respiratory rate E&M 16 /min Asha ibrahim pulse rate 61 /min Asha Mcdermott lder weight E&M 218 [lb_av] Asha Mcdermott lder height E&M 70.6 [in_i] Asha Mcdermott er Body Mass Index (Ratio) 30.97 kg/m2 Flakito Hector MD blood pressure, resting Yes Vivian Pope blood pressure, diastolic 84 mm[Hg] Riri Pope blood pressure, systolic 133 mm[Hg] Rosi Pope oxygen saturation, oximetry 97 % Evaristo Pope respiratory rate E&M 18 /min Maik Pope pulse rate 71 /min Evaristo parada weight E&M 219.6 [lb_av] Evaristo kessler height E&M 70.6 [in_i] Evairsto Nicholas nson blood pressure, diastolic 76 mm[Hg] Ke rri Gruenenfelder blood pressure, systolic 142 mm[Hg] Ker ri Gruenenfelder pulse rate 65 /min Asha Gruenenfe lder oxygen saturation, oximetry 97 % Asha Gruenenfelder respiratory rate E&M 16 /min Asha G kellienenfelder Body Mass Index (Ratio) 31.03 kg/m2 Carias i Gruenenfelder weight E&M 220 [lb_av] Asha Gruenenfe lder blood pressure, diastolic 79 mm[Hg] Riri Pope blood pressure, systolic 142 mm[Hg] Rosi Dorothy Pope Body Mass Index (Ratio) 32.83 kg/m2 Vivian Pope pulse rate 66 /min Evaristo parada oxygen saturation, oximetry 94 % Evaristo Pope respiratory rate E&M 18 /min Maik Pope weight E&M 232.8 [lb_av] Evaristo kessler Body Mass Index (Ratio) 32.86 kg/m2 Carias i Gruenewarrenelder blood pressure, diastolic 80 mm[Hg] Ke rri Gruenenfelder blood pressure, systolic 130 mm[Hg] Ker ri Gruenenfelder pulse rate 74 /min Asha Gruenenfe lder oxygen saturation, oximetry 97 % Asha Gruenenfelder respiratory rate E&M 16 /min Asha G ruenenfelder weight E&M 233 [lb_av] Asha Gruenenfe lder blood pressure, diastolic 75 mm[Hg] Me trevizo Rogers blood pressure, systolic 146 mm[Hg] Trish potter Rogers pulse rate 64 /min Joselyn Rogers oxygen saturation, oximetry 98 % Joselyn Rogers Body Mass Index (Ratio) 33.71 kg/m2 Desiree gill Rogers respiratory rate E&M 14 /min Joselyn Rogers weight E&M 239 [lb_av] Joselyn Rogers Body Mass Index (Ratio) 33.27 kg/m2 Dottie duarte Silvestre blood pressure, diastolic 72 mm[Hg] Ronan adams Silvestre blood pressure, systolic 138 mm[Hg] Vishal stewart Silvestre pulse rate 69 /min Marga Silvestre oxygen saturation, oximetry 97 % Marga Silvestre respiratory rate E&M 16 /min Marga Nirmala weight E&M 235 [lb_av] Marga Nirmala Body Mass Index (Ratio) 32.65 kg/m2 Lizette Ashford blood pressure, diastolic 64 mm[Hg] Ronan Ashford blood pressure, systolic 130 mm[Hg] Vinnie Ashford pulse rate 61 /min Laura Ashford oxygen saturation, oximetry 98 % Laura Ashford respiratory rate E&M 16 /min Laura bobo weight E&M 230.6 [lb_av] Laura Ashford blood pressure, diastolic 92 mm[Hg] Owen Sheehan RN blood pressure, systolic 138 mm[Hg] Sergei Sheehan RN pulse rate 63 /min Sergei Sheehan RN oxygen saturation, oximetry 97 % Sergei Sheehan RN respiratory rate E&M 16 /min Sergei jensen RN Body Mass Index (Ratio) 32.14 kg/m2 Sergei Sheehan RN weight E&M 227 [lb_av] Sergei Sheehan RN height E&M 70.6 [in_i] Sergei Sheehan RN Body Mass Index (Ratio) 29.03 kg/m2 Devante geovanni Ruiz blood pressure, diastolic, left arm 71 mm [Hg] Isiah Ruiz blood pressure, systolic, left arm 95 mm[ Hg] Isiah Ruiz blood pressure, diastolic, right arm 75 m m[Hg] Crispinrosy Ruiz blood pressure, systolic, right arm 137 m m[Hg] Isiah Ruiz blood pressure, diastolic 71 mm[Hg] Bell Ruiz blood pressure, systolic 95 mm[Hg] Crispin toth Ruiz pulse rate 86 /min [facility] oxygen saturation, oximetry 97 % Crispinrosy Ruiz respiratory rate E&M 16 /min Crispinrosy Ruiz weight E&M 225.31 [lb_av] Isiah Mcmahon rosy Body Mass Index (Ratio) 29.25 kg/m2 Dejon pereira [place] blood pressure, diastolic 86 mm[Hg] Loreta seph [place] blood pressure, systolic 138 mm[Hg] Luis Antonio owusu [place] pulse rate 69 /min [facility], oxim[facility] 96 % Akhil [place] respiratory rate E&M 16 /min Akhil [place] weight E&M 227 [lb_av] Akhil [place] height E&M 74 [in_i] Akhil [place] blood pressure, diastolic 93 mm[Hg] Sophia Hernandez blood pressure, systolic 155 mm[Hg] Johanna Hernandez pulse rate 64 /min Rosita Hernandez oxygen saturation, oximetry 96 % Rosita Hernandez respiratory rate E&M 18 /min Rosita Hernandez weight E&M 229 [lb_av] Rosita Hernandez height E&M 72 [in_i] Rosita Hernandez blood pressure, diastolic 80 mm[Hg] Sravan Reeder blood pressure, systolic 140 mm[Hg] Arden Reeder pulse rate 81 /min Flory Reeder oxygen saturation, oximetry 95 % Flory Reeder respiratory rate E&M 18 /min Flory Reeder weight E&M 232 [lb_av] Flory Reeder blood pressure, diastolic, left arm 83 mm [Hg] Marga Silvestre blood pressure, systolic, left arm 135 mm [Hg] Marga Silvestre blood pressure, diastolic, right arm 85 m m[Hg] Marga Silvestre blood pressure, systolic, right arm 140 m m[Hg] Marga Silvestre blood pressure, diastolic 85 mm[Hg] Ronan adams Silvestre blood pressure, systolic 140 mm[Hg] Vishal stewart [place] pulse rate 94 /min Marga Silvestre oxygen saturation, oximetry 95 % Marga Silvestre respiratory rate E&M 16 /min Marga Silvestre weight E&M 227 [lb_av] Marga Silvestre blood pressure, diastolic 77 mm[Hg] Virgil Odom blood pressure, systolic 137 mm[Hg] Lashae Odom pulse rate 75 /min June Odom oxygen saturation, oximetry 99 % June Odom respiratory rate E&M 16 /min June Odom weight E&M 225 [lb_av] June Odom blood pressure, diastolic, right arm 93 m m[Hg] Akhil [place] blood pressure, systolic, right arm 135 m m[Hg] Akhil [place] blood pressure, diastolic 93 mm[Hg] Loreta [place] blood pressure, systolic 135 mm[Hg] Luis Antonio [place] pulse rate 97 /min Akhil [place] oxygen saturation, oximetry 95 % Akhil [place] respiratory rate E&M 16 /min Akhil [place] weight E&M 232 [lb_av] Akhil [place] blood pressure, diastolic 80 mm[Hg] Da austen Chan blood pressure, systolic 126 mm[Hg] Danny higgins Chan pulse rate 74 /min Ani Chan oxygen saturation, oximetry 96 % Ani hCan respiratory rate E&M 18 /min Johnson [place] Chan weight E&M 236 [lb_av] Ani Chan blood pressure, diastolic 78 mm[Hg] Noelle rakan [place] MA blood pressure, systolic 131 mm[Hg] María norma [place] MA pulse rate 79 /min Heather Carlton MA oxygen saturation, oximetry 95 % Heather Carlton MA respiratory rate E&M 18 /min Heather Carlton MA weight E&M 225 [lb_av] Heather Carlton MA blood pressure, diastolic 89 mm[Hg] Ch geovanni Spangler RN blood pressure, systolic 151 mm[Hg] Chr eloise Spangler RN pulse rate 88 /min Rose Spangler RN oxygen saturation, oximetry 94 % Rose Spangler RN respiratory rate E&M 16 /min Rose Spangler RN weight E&M 229 [lb_av] Rose Spangler RN blood pressure, diastolic 85 mm[Hg] Ca dipti Barrow blood pressure, systolic 146 mm[Hg] Car ramila [place] pulse rate 91 /min Brittany Barrow oxygen saturation, oximetry 94 % Brittany Barrow respiratory rate E&M 16 /min Brittany gordon weight E&M 226 [lb_av] Brittany Barrow ALLERGIES No Known Drug Allergies RESULTS Date Observation Value Provider Reference Range Interpretation Location calcium, serum 9.8 mg/dL [facility] 8.6-10.2 carbon dioxide, venous blood 20 mmol/L [facility] 18- chloride, serum 106 mmol/L [facility] 96-106 potassium, serum 5.0 mmol/L [facility] 3.5-5.2 sodium, serum 143 mmol/L [facility] 924-443 4612/02 /20 urea nitrogen/creatinine ratio, serum 13 [facility] - eGFR if not 57 mL/min/{1.73_ m2} [facility] >59 Low creatinine, serum 1.29 mg/dL [facility] 0.76-1.27 High urea nitrogen, blood 17 mg/dL [facility] - blood glucose, random 105 mg/dL [facility] 65-99 High calcium, serum 10.3 mg/dL [facility] 8.6-10.2 High carbon dioxide, venous blood 21 mmol/L [facility] - chloride, serum 103 mmol/L [facility] 96-106 potassium, serum 5.0 mmol/L [facility] 3.5-5.2 sodium, serum 141 mmol/L [facility] 091-179 3817/02 /16 urea nitrogen/creatinine ratio, serum 13 [facility] - eGFR if not 71 mL/min/{1.73_ m2} [facility] >59 creatinine, serum 1.08 mg/dL [facility] 0.76-1.27 urea nitrogen, blood 14 mg/dL [facility] 8- blood glucose, random 95 mg/dL [facility] 65-99 ferritin, serum 584 ng/mL [facility] 30-400 High iron saturation percent, serum 38 % [facility] 15-55 iron, serum 139 ug/dL [facility] 38-169 iron binding capacity, unsaturated 228 ug/dL [facility] 756-322 0742/12 /14 iron binding capacity, total 367 ug/dL [facility] 000-919 9237/12 /14 basophil count, absolute 0.0 x10E3/uL [facility] 0.0-0.2 Eosinophil Absolute Count 0.4 X10E3/UL [facility] 0.0-0.4 monocyte count, blood, automated 1.0 X10E3/UL [facility] 0.1-0.9 High lymphocyte count, blood, automated 2.0 X10E3/UL [facility] 0.7-3.1 Absolute Neutrophils 3.9 X10E3/UL [facility] 1.4-7.0 basophils as percent of blood leukocytes 0 % [facility] Not Estab. eosinophils as percent of blood leukocytes 6 % [facility] Not Estab. monocytes as percent of blood leukocytes 14 % [facility] Not Estab. lymphocytes as percent of blood leukocytes 28 % [facility] Not Estab. neutrophils as percent of blood leukocytes 52 % [facility] Not Estab. platelet count 149 X10E3/UL [facility] 150-379 Low red blood cell distribution width 13.9 % [facility] 12.3-15.4 mean corpuscular hemoglobin concentration, RBC 34.3 G/DL [facility] 31.5-35.7 mean corpuscular hemoglobin, RBC 32.4 pg [facility] 26.6-33.0 mean corpuscular volume, RBC 94 fL [facility] 79-97 hematocrit, blood 42.0 % [facility] 37.5-51.0 hemoglobin, blood 14.4 g/dL [facility] 13.0-17.7 erythrocyte (RBC) count 4.45 X10E6/UL [facility] 4.14-5.80 leukocyte count, blood 7.4 X10E3/UL [facility] 3.4-10.8 triglyceride, serum, fasting 259 mg/dL Alexsandra Bahena HDL cholesterol, serum 36 mg/dL Alexsandra Bahena cholesterol/HDL ratio, serum 3.9 [facility] lipoprotein, beta, serum, point, quantitative, calculated 53 mg/dL [facility] cholesterol, serum 141 mg/dL [facility] thyroid stimulating hormone, serum 1.71 u[IU]/mL [facility] alanine aminotransferase (SGPT), serum 25 1/L [facility] aspartate aminotransferase (SGOT), serum 34 1/L [facility] creatinine, serum 1.16 mg/dL [facility] potassium, serum 4.8 mmol/L [facility] sodium, serum 143 mmol/L [facility] prothrombin time (patient) 12.9 s [facility] 9.0-11.5 High international normalized ratio (INR) 1.3 [facility] High calcium, serum 9.8 mg/dL [facility] 8.6-10.3 Normal carbon dioxide, venous blood 26 mmol/L [facility] 21-33 Normal chloride, serum 106 mmol/L [facility] 98-110 Normal potassium, serum 4.5 mmol/L [facility] 3.5-5.3 Normal sodium, serum 143 mmol/L [facility] 135-146 Normal urea nitrogen/creatinine ratio, serum NOT APPLICABLE (calc) [facility] 6- Estimated Glomerular Filtration Rate (calc) 88 mL/min/{1.73_ m2} [facility] > OR = 60 Normal creatinine, serum 1.05 mg/dL [facility] 0.70-1.25 Normal urea nitrogen, blood 15 mg/dL [facility] 7-25 Normal blood glucose, random 96 mg/dL [facility] 65-99 Normal cholesterol/HDL ratio, serum 3.3 [facility] triglyceride, serum, fasting 234 mg/dL [facility] HDL cholesterol, serum 42 mg/dL [facility] LDL cholesterol, serum 49 mg/dL [facility] cholesterol, serum 138 mg/dL [facility] thyroid stimulating hormone, serum 1.61 u[IU]/mL [facility] albumin/globulin ratio, serum 2.0 [facility] protein, total, serum 6.4 g/dL [facility] albumin, serum 4.3 g/dL [facility] bilirubin, serum, total 0.5 mg/dL [facility] alkaline phosphatase, serum 59 1/L [facility] alanine aminotransferase (SGPT), serum 27 1/L [facility] aspartate aminotransferase (SGOT), serum 30 1/L [facility] calcium, serum 9.4 mg/dL [facility] blood glucose, fasting 103 mg/dL [facility] creatinine, serum 1.03 mg/dL [facility] urea nitrogen, blood 12 mg/dL [facility] carbon dioxide, serum, total 23 mmol/L [facility] chloride, serum 108 mmol/L [facility] potassium, serum 4.3 mmol/L [facility] sodium, serum 142 mmol/L [facility] prostate specific antigen 2.3 ng/mL [facility] globulins, serum, total 2.1 g/dL [facility] B-12, serum 305 pg/mL [facility] Estimated Glomerular Filtration Rate (calc) 78 mL/min/{1.73_ m2} [facility] platelet count 129 10*3/uL [facility] red blood cell distribution width 13.9 % [facility] mean corpuscular hemoglobin concentration, RBC 34.2 g/dL [facility] Josef mean corpuscular hemoglobin, RBC 33.7 pg [facility] mean corpuscular volume, RBC 98.7 fL [facility] hematocrit, blood 44.2 % [facility] hemoglobin, blood 15.1 g/dL [facility] erythrocyte (RBC) count 4.48 10*6/mm3 [facility] monocytes as percent of blood leukocytes 11.5 % [facility] lymphocytes as percent of blood leukocytes 33.2 % [facility] leukocyte count, blood 4.6 10*3/mm3 [facility] platelet count 123 10*3/uL [facility] red blood cell distribution width 14.3 % [facility] mean corpuscular hemoglobin concentration, RBC 33.8 g/dL [facility] mean corpuscular hemoglobin, RBC 34.2 pg [facility] mean corpuscular volume, RBC 101.0 fL [facility] hematocrit, blood 45.6 % [facility] hemoglobin, blood 15.4 g/dL [facility] erythrocyte (RBC) count 4.51 10*6/mm3 [facility] monocytes as percent of blood leukocytes 12.7 % [facility] lymphocytes as percent of blood leukocytes 39.8 % [facility] leukocyte count, blood 4.7 10*3/mm3 [facility] globulins, serum, total 2.0 g/dL [facility] Estimated Glomerular Filtration Rate (calc) >60 [facility] albumin/globulin ratio, serum 2.3 [facility] protein, total, serum 6.5 g/dL [facility] albumin, serum 4.5 g/dL [facility] bilirubin, serum, total 0.6 mg/dL [facility] alkaline phosphatase, serum 66 1/L [facility] alanine aminotransferase (SGPT), serum 26 1/L [facility] aspartate aminotransferase (SGOT), serum 30 1/L [facility] calcium, serum 9.8 mg/dL [facility] blood glucose, fasting 88 mg/dL [facility] creatinine, serum 0.88 mg/dL [facility] urea nitrogen, blood 13 mg/dL [facility] carbon dioxide, serum, total 26 mmol/L [facility] chloride, serum 108 mmol/L [facility] potassium, serum 4.3 mmol/L [facility] sodium, serum 143 mmol/L [facility] cholesterol/HDL ratio, serum 3.8 [facility] triglyceride, serum, fasting 259 mg/dL [facility] HDL cholesterol, serum 41 mg/dL [facility] LDL cholesterol, serum 62 mg/dL [facility] cholesterol, serum 155 mg/dL [facility] erythrocyte sedimentation rate 1 mm/h [facility] < OR = 20 Normal alanine aminotransferase (SGPT), serum 29 1/L [facility] 9-60 Normal aspartate aminotransferase (SGOT), serum 27 1/L [facility] 10-35 Normal alkaline phosphatase, serum 57 1/L [facility] 40-115 Normal bilirubin, serum, total 1.0 mg/dL [facility] 0.2-1.2 Normal albumin/globulin ratio, serum 2.1 (calc) [facility] 1.0-2.1 Normal globulins, serum, total 2.0 G/DL ([facility]) [facility] 2.1-3.7 Low albumin, serum 4.2 g/dL [facility] 3.6-5.1 Normal protein, total, serum 6.2 g/dL [facility] 6.2-8.3 Normal calcium, serum 9.0 mg/dL [facility] 8.6-10.2 Normal carbon dioxide, venous blood 23 mmol/L [facility] 21-33 Normal chloride, serum 108 mmol/L [facility] 98-110 Normal potassium, serum 4.8 mmol/L [facility] 3.5-5.3 Normal sodium, serum 141 mmol/L [facility] 135-146 Normal urea nitrogen/creatinine ratio, serum NOT APPLICABLE (calc) [facility] 6-22 Estimated Glomerular Filtration Rate (calc) >60 mL/min/1.73m2 [facility] > OR = 60 Normal creatinine, serum 1.06 mg/dL [facility] 0.76-1.46 Normal urea nitrogen, blood 23 mg/dL [facility] 7-25 Normal blood glucose, random 84 mg/dL [facility] 65-99 Normal cholesterol/HDL ratio, serum, percent 4.7 (calc) [facility] < OR = 5.0 Normal LDL cholesterol, serum 78 MG/DL ([facility]) [facility] <130 Normal triglyceride, serum, fasting 261 mg/dL [facility] <150 High HDL cholesterol, serum 35 mg/dL [facility] > OR = 40 Low cholesterol, serum 165 mg/dL [facility] 125-200 Normal HISTORY OF MEDICATION USE Medication Status Instructions Dates Provider Indications Com ments SOTALOL HCL 80 MG ORAL TABLET active ONE TAB. TWICE DAILY Vivian Will RN RANITIDINE HCL 300 MG ORAL CAPSULE active once a day Asha Hurtado FENOFIBRATE CAPSULE active 135 mg take one pill a day Asha Hurtado SOTALOL HCL 80 MG ORAL TABLET completed ONE TAB. TWICE DAILY - Katherin Regalado MD FISH OIL CAPSULE active ONE TAB. DAILY Asha Hurtado LISINOPRIL 10 MG ORAL TABLET active ONE TAB. DAILY Asha Hurtado RANITIDINE HCL 300 MG ORAL CAPSULE completed once a day - Katherin Regalado MD ELIQUIS 5 MG ORAL TABLET active one tablet twice daily Mariusz Hector MD MAGNESIUM 400 MG ORAL CAPS completed one tablet once a day - Asha Hurtado LISINOPRIL 10 MG ORAL TABLET completed one tablet each night - Mariusz bo to use generic BETAPACE 80 MG ORAL TABLET completed one tablet twice a day - January JORGENSENT HFA AEROSOL SOLUTION active daily Joselyn Rogers LIPITOR 40 MG ORAL TABLET active ONE TAB. DAILY Mariusz Hector MD ASPIRIN 81 MG ORAL TABLET completed ONE TAB. DAILY - Jonathan Mckeon DO B-12 1000 MCG ORAL CAPSULE active 1 TWICE DAILY Marga Silvestre CELEBREX CAPSULE completed 1tab daily - Evaristo Pope MULTAQ 400 MG ORAL TABLET completed ONE TAB WITH MORNING MEAL PO ONE TAB WITH EVENING MEAL. - Telly Garner MD PANTOPRAZOLE SODIUM 40 MG ORAL TABLET DELAYED RELEASE completed take one pill a day - Evaristo Pope PROPAFENONE HCL 225 MG ORAL TABLET completed 1 tablet by mouth twice daily - Katherin Regalado MD PRADAXA 150 MG ORAL CAPSULE completed One capsule twice a day. TAKE WITH LARGE GLASS OF WATER! - Mariusz Hector MD NIASPAN 500 MG ORAL TABLET EXTENDED RELEASE completed THREE TABS. AT BEDTIME - Dispense as written - Mariusz Hector MD TRILIPIX 135 MG ORAL CAPSULE DELAYED RELEASE completed one tab. daily - Dispense as written - Asha Hurtado LOVAZA 1 GM ORAL CAPSULE completed Dispense as written - Asha Hurtado DICLOFENAC SODIUM 75 MG ORAL TABLET DELAYED RELEASE completed daily - Laura Ashford NIASPAN 500 MG ORAL TABLET EXTENDED RELEASE completed ONE TAB. AT BEDTIME - Dispense as written - Flory Reeder COUMADIN 5 MG ORAL TABLET completed coumdin 2.5 daily , 5 mg daily - Marga Silvestre CELEBREX CAPSULE completed 1 capsule once daily - Rosita Hernandez NIASPAN 500 MG ORAL TABLET EXTENDED RELEASE completed ONE TAB. AT BEDTIME - Dispense as written - June Odom LOVAZA CAPSULE completed - Mariusz Hector MD NIASPAN 500 MG ORAL TABLET EXTENDED RELEASE completed ONE TAB. AT BEDTIME - Dispense as written - Heather Carlton MA TRILIPIX 135 MG ORAL CAPSULE DELAYED RELEASE completed one tab. daily - Dispense as written - Flory Reeder ALLOPURINOL 100 MG ORAL TABLET active TWO TABS DAILY Rose Spangler RN DICLOFENAC POTASSIUM TABLET completed 50mg two tabs daily - June Odom LOVAZA 1 GM ORAL CAPSULE completed take one twice daily - Mariusz Hector MD ASPIRIN 325 MG ORAL TABLET completed one tab daily - June Odom METOPROLOL TARTRATE 50 MG ORAL TABLET completed one tab po twice daily - Telly Garner MD VYTORIN 10-40 MG ORAL TABLET completed ONE TAB. AT BEDTIME - Marga Silvestre LOPRESSOR TABLET completed 25 MG BID - Brittany Barrow ADVAIR DISKUS 500-50 MCG/DOSE INHALATION AEROSOL POWDER BREATH ACTIVATED completed two daily - Akhil Grove WELCHOL 625 MG ORAL TABLET completed QD - Brittany Barrow ALLOPURINOL 100 MG ORAL TABLET completed BID - Brittany Barrow LIPITOR 40 MG ORAL TABLET completed ONE TAB. DAILY - Mariusz Hector MD SOCIAL HISTORY Date Observation Value Provider social history reviewed E&M revi ewed - no changes required Lucien Patel NP social history E&M Marital Statu s: J ob Status: Retired E thnicity: L nita with family/friends Smoking History: P adiel is a former smoker. 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 (CAGE substance use question #4) N Ashamadan Hurtado In the past 3 months , have you felt guilty or bad about using drugs? (CAGE substance use question #3) N Asha Bryant In the past 3 months , has anyone annoyed you by telling you to cut down or stop using drugs? (CAGE substance use question #2) N Ashamadan Hurtado In the past 3 months , have you felt you should cut down or stop using drugs?(CAGE substance use question #1) N Asha Hurtado alcohol use, average drinks per day social Ashamadan Hurtado alcohol use, type beer Asha Rodriguezaurora cunningham alcohol use yes Ashamadan brown drug use none Ashamadan brown passive cigarette sm amrit exposure no Asha Bryant smoking, year quit 1986 Asha Rodriguezjocelyn bull number of years as a smoker 10 years or m ore Asha Hurtado smoking, date started Asha Hurtado smoking history, tot al pack/year 15 Ashamadan Hurtado smoking history, tot al pack/day 1 Asha Hurtado cigarette use yes Ashamadan velasquez smoking status Former smoker Asha Lui fabiano social history reviewed E&M revi ewed - no changes required Katherin Regalado MD seatbelt usage 100 % Asha Harkinsorquidea wilkins exercise type cardio, weights Asha Harkinsmichael ly physical exercise, f requency, days per week 4 /wk Asha Hurtado alcohol counseling no Asha Rodriguezjocelyn bull In the past 3 months , have you been waking up wanting to use drugs? (CAGE substance use question #4) N Asha Bryant In the past 3 months , have you felt guilty or bad about using drugs? (CAGE substance use question #3) N Asha Bryant In the past 3 months , has anyone annoyed you by telling you to cut down or stop using drugs? (CAGE substance use question #2) N Asha Hurtado In the past 3 months , have you felt you should cut down or stop using drugs?(CAGE substance use question #1) N Asha Hurtado alcohol use, average drinks per day social Ashamadan Hurtado alcohol use, type beer Asha Rodriguezaurora cunningham alcohol use yes Ashamadan brown drug use none Ashamadan aviles passive cigarette sm amrit exposure no Asha Bryant smoking, year quit 1987 Asha Rodriguezjocelyn bull number of years as a smoker 10 years or m ore Asha Hurtado smoking, date started 14 Asha Hurtado smoking history, tot al pack/year 15 Ashamadan Hurtado smoking history, tot al pack/day 1 Asha Hurtado cigarette use yes Ashamadan velasquez smoking status Former smoker Asha Rodriguezalexa mario social history reviewed E&M revi ewed - no changes required Lucien Patel NP smoking status Former smoker Valerie Roth number of grandchildren Jonathan Linda Williamson O Jonathan Mckeon DO social history reviewed E&M revi ewed - no changes required Jonathan Mckeon DO social history reviewed E&M revi ewed - no changes required Mariusz Hector MD seatbelt usage 100 % Asha Yue wilkins exercise type cardio, weights Asha ly physical exercise, f requency, days per week 4 /wk Asha Hurtado alcohol counseling no Asha Ronnie bull In the past 3 months , have you been waking up wanting to use drugs? (CAGE substance use question #4) N Asha Hurtado In the past 3 months , have you felt guilty or bad about using drugs? (CAGE substance use question #3) N Asha Hurtado In the past 3 months , has anyone annoyed you by telling you to cut down or stop using drugs? (CAGE substance use question #2) N Asha Hurtado In the past 3 months , have you felt you should cut down or stop using drugs?(CAGE substance use question #1) N Asha Hurtado alcohol use, average drinks per day social Asha Hurtado alcohol use, type beer Asha cunningham alcohol use yes Asha brown drug use none Asha brown passive cigarette sm amrit exposure no Asha Hurtado smoking, year quit 1986 Asha bull number of years as a smoker 10 years or m ore Asha Hurtado smoking, date started 14 Asha Hurtado smoking history, tot al pack/year 15 Asha Hurtado smoking history, tot al pack/day 1 Asha Hurtado cigarette use yes Asha velasquez smoking status Former smoker Asha mario social history reviewed E&M revi ewed - no changes required Mariusz Hector MD seatbelt usage 100 % Evaristo Marie exercise type cardio, weights Evaristo mcmullen physical exercise, f requency, days per week 4 /wk Evaristo Pope alcohol counseling no Evaristo Pope In the past 3 months , have you been waking up wanting to use drugs? (CAGE substance use question #4) N Evaristo Pope In the past 3 months , have you felt guilty or bad about using drugs? (CAGE substance use question #3) N Evaristo Pope In the past 3 months , has anyone annoyed you by telling you to cut down or stop using drugs? (CAGE substance use question #2) N Evaristo Pope In the past 3 months , have you felt you should cut down or stop using drugs?(CAGE substance use question #1) N Evaristo Pope alcohol use, average drinks per day social Evaristo Pope alcohol use, type beer Evaristo Pope alcohol use yes Evaristo Nuneze karma drug use none Evaristo Nuneze karma passive cigarette sm amrit exposure no Evaristo Pope smoking, year quit 1986 Evaristo Pope number of years as a smoker 10 years or m ore Evaristo Pope smoking, date started Henrik Pope smoking history, tot al pack/year 15 Evaristo Pope smoking history, tot al pack/day 1 Evaristo Pope cigarette use yes Evaristo kessler smoking status Former smoker Evaristo [facility] social history reviewed E&M revi ewed - no changes required Mariusz Hector MD alcohol use, average drinks per day social Asha Rodriguezpapi alcohol use yes Asha Luijosue brown smoking status Former smoker Asha Lui fabiano smoking/tobacco cess ation, patient education and counseling No Mariusz Hector MD social history E&M Marital Statu s: J ob Status: Retired E thnicity: L nita with family/friends Mariusz Hector MD social history reviewed E&M revi ewed - no changes required Mariusz Hector MD seatbelt usage 100 % Evaristo Marie exercise type cardio, weights Evaristo mcmullen physical exercise, f requency, days per week 4 /wk Evaristo Pope alcohol counseling no Evaristo Pope In the past 3 months , have you been waking up wanting to use drugs? (CAGE substance use question #4) Michael Pope In the past 3 months , have you felt guilty or bad about using drugs? (CAGE substance use question #3) Michael Pope In the past 3 months , has anyone annoyed you by telling you to cut down or stop using drugs? (CAGE substance use question #2) Michael Pope In the past 3 months , have you felt you should cut down or stop using drugs?(CAGE substance use question #1) N Evaristo Pope alcohol use, average drinks per day social Evaristo Pope alcohol use, type beer Evaristo Pope alcohol use yes Evaristo parada drug use none Evaristo parada passive cigarette sm amrit exposure no Evaristo Pope smoking, year quit 1986 Evaristo Pope number of years as a smoker 10 years or m ore Evaristo Pope smoking, date started 14 Henrik Pope smoking history, tot al pack/year 15 Evaristo Pope smoking history, tot al pack/day 1 Evaristo Pope cigarette use yes Evaristo kessler smoking status Former smoker Evaristo Aguilar social history reviewed E&M revi ewed - no changes required Katherin Regalado MD alcohol use, average drinks per day social Asha Hurtado alcohol use yes Asha Rodriguezauroramichellejosue brown smoking, date started 15 Ashamadan Hurtado smoking history, tot al pack/day 1 Asha Hurtado cigarette use yes Asha Rodriguezauroramichellewarren velasquez smoking status Former smoker Asha Lui fabiano social history reviewed E&M revi ewed - no changes required Telly Garner MD seatbelt usage 100 % Joselyn rodriguez exercise type cardio, weights Joselyn isaacs physical exercise, f requency, days per week 4 /wk Joselyn Rogers alcohol counseling no Joselyn Diaz In the past 3 months , have you been waking up wanting to use drugs? (CAGE substance use question #4) N Joselyn Rogers In the past 3 months , have you felt guilty or bad about using drugs? (CAGE substance use question #3) N Joselyn Rogers In the past 3 months , has anyone annoyed you by telling you to cut down or stop using drugs? (CAGE substance use question #2) N Joselyn Rogers In the past 3 months , have you felt you should cut down or stop using drugs?(CAGE substance use question #1) N Joselyn Rogers alcohol use, average drinks per day 1-3 drinks per day Joselyn Rogers alcohol use, type beer Joselyn Cameron Hailee drug use none Joselyn Rogers passive cigarette sm amrit exposure no Joselyn Rogers smoking status Former smoker Joselyn Meza epifanio social history reviewed E&M reviewed Mariusz Hector MD social history reviewed E&M reviewed Sergei Sheehan RN drug use none Mariusz Williamson social history reviewed E&M reviewed Sergei Sheehan RN social history reviewed E&M reviewed Katherin Regalado MD drug use no Mariusz Williamson social history reviewed E&M reviewed Sergei Sheehan RN seatbelt usage 100 % Mariusz Hector MD exercise type cardio, weights Mariusz gallegos MD physical exercise, f requency, days per week 4 /wk Mariusz Hector MD alcohol counseling no Mariusz del real MD In the past 3 months , have you been waking up wanting to use drugs? (CAGE substance use question #4) N Mariusz Hector MD In the past 3 months , have you felt guilty or bad about using drugs? (CAGE substance use question #3) Michael Hector MD In the past 3 months , has anyone annoyed you by telling you to cut down or stop using drugs? (CAGE substance use question #2) Michael Hector MD In the past 3 months , have you felt you should cut down or stop using drugs?(CAGE substance use question #1) N Mariusz Hector MD alcohol use, type beer Mariusz woodson MD drug use no Mariusz Williamson passive cigarette sm amrit exposure no Mariusz Hector MD social history reviewed E&M reviewed Mariusz Hector MD smoking history, tot al pack/year 15 Rosita Hernandez smoking, year quit 1986 Rosita Mehta delmarbeatris smoking status former smoker Rosita Garcia er social history reviewed E&M reviewed Mariusz Hector MD social history reviewed E&M reviewed Mariusz Hector MD social history reviewed E&M reviewed Katherin Reaglado MD social history reviewed E&M reviewed Mariusz Hector MD social history reviewed E&M reviewed Mariusz Hector MD social history reviewed E&M reviewed Mariusz Hector MD social history E&M Marital Statu s: J ob Status: Employed full-time E thnicity: L nita with family/friends Mariusz Hector MD drug use none Mariusz Williamson social history reviewed E&M reviewed Mariusz Hector MD physical exercise, f requency, days per week yes [facility] alcohol use, average drinks per day 1-3 drinks per day [facility] number of years as a smoker 10 years or m ore [facility] smoking status Quit [facility] MENTAL STATUS Date Observation Value Provider assessment of judgme nt and insight E&M Alert and oriented to time, place and person. Mood and affect are normal. Mariusz Hector MD assessment of judgme nt and insight E&M Alert and oriented to time, place and person. Mood and affect are normal. Sergei Sheehan RN assessment of judgme nt and insight E&M Alert and oriented to time, place and person. Mood and affect are normal. Sergei Sheehan RN assessment of judgme nt and insight E&M Alert and oriented to time, place and person. Mood and affect are normal. Katherin Regalado MD assessment of judgme nt and insight E&M Alert and oriented to time, place and person. Mood and affect are normal. Sergei Sheehan RN assessment of judgme nt and insight E&M Alert and oriented to time, place and person. Mood and affect are normal. Mariusz Hector MD assessment of judgme nt and insight E&M Alert and oriented to time, place and person. Mood and affect are normal. Mariusz Hector MD assessment of judgme nt and insight E&M Alert and oriented to time, place and person. Mood and affect are normal. Mariusz Hector MD assessment of judgme nt and insight E&M Alert and oriented to time, place and person. Mood and affect are normal. Katherin Regalado MD assessment of judgme nt and insight E&M Alert and oriented to time, place and person. Mood and affect are normal. Mariusz Hector MD assessment of judgme nt and insight E&M Alert and oriented to time, place and person. Mood and affect are normal. Mariusz Hector MD assessment of judgme nt and insight E&M Alert and oriented to time, place and person. Mood and affect are normal. Mariusz Hector MD assessment of judgme nt and insight E&M Alert and oriented to time, place and person. Mood and affect are normal. Mariusz Hector MD assessment of judgme nt and insight E&M Alert and oriented to time, place and person. Mood and affect are normal. Mariusz Hector MD FAMILY HISTORY Family Member Condition Mother Family History Unkno wn Father Negative FH of Coron zaira Artery Disease INSURANCE PROVIDERS Payer name Policy type / Coverage type [place] Medicare [id number] [employer] Commercial insurance co [facility] [id number] [place] MEDIC[place] Medicare [id number] ADVANCE DIRECTIVES Name Date DISCUSSED - NO DECISION MADE TREATMENT PLAN Date Name Performer Electrophysiology Follow up - KRISHAN faxed 06-03, lo Lucien Patel NP Electrophysiology Fo llow up - KESHA faxed 06-03, lo:100% burden on recent 48Hr ZIO. R estart sotalol 80mg BID. R epeat EKG in 2 days. S chedule cardioversion. Lucien Patel NP Cardiology Follow up Katherin ignacio MD Cardiology Follow up Katherin ignacio MD Cardiology Follow up Katherin ignacio MD Cardiology Follow up Katherin ignacio MD Electrophysiology:Resolved. Silverio Patel NP Electrophysiology:BP today: 118/70 P rior BP: 115/60 (11/13/2016) Labs Reviewed: C reat: 1.16 (11/19/2012) C hol: 141 (11/19/2012) HDL: 36 (11/19/2012) T (11/19/2012) Lucien Jorge DISPLAY TRIMMER Electrophysiology: B P today: 115/60 P rior BP: 134/80 (09/30/2016) Labs Reviewed: C reat: 1.16 (11/19/2012) C hol: 141 (11/19/2012) HDL: 36 (11/19/2012) T (11/19/2012) Jonathan Mckeon DO Electrophysiology:At ypical flutter on EKG today, likely left atrial flutter related to prior ablations. Reportedly had two previous afib ablations.Reports not available at this time. Jonathan Mckeon DO Electrophysiology:S/ p ablation by Dr. Elizabeth at [place]. Repeated by me 6-7 years ago. S/p cardioversion in 2011. Has no awareness of symptoms at present other than mild [place] and fatigue. Started on Eliquis last month by Dr. Hector. On Sotalol. No conclusive evidence of recurrent afib. Appears to be in an atypical aflutter at this time. Discussed options for ablating atrial flutter, medication changes, or monitoring atrial flutter. Patient will speak with regarding decision. Jonathan Mckeon DO Cardiology Follow up Mariusz gallegos MD Cardiology Follow up Mariusz gallegos MD Cardiology Follow up Mariusz gallegos MD Cardiology Follow up :Recurrent after 2 ablations. Will have him see Dr Linda Hector MD Cardiology Mariusz Hector MD Cardiology Mariusz Hector MD Cardiology Mariusz Hector MD Cardiology:ECG today shows A-flutter with controlled ventricular response. Will place monitor for 1-2 weeks to see if he is in and out of it. Start Eliquis for CVA protection. If remains a-flutter, will have him see Dr Mckeon. Mariusz Hector MD Cardiology Follow up Mariusz gallegos MD Cardiology Follow up Mariusz gallegos MD Cardiology Follow up Mariusz gallegos MD Cardiology Follow up Mariusz gallegos MD fu: H is updated medication list for this problem includes: Lisinopril 10 Mg Oral Tabs (Lisinopril) ..... One tablet each night Betapace 80 Mg Oral Tabs (Sotalol hcl) ..... One tablet twice a day Aspirin 81 Mg Tabs (Aspirin) ..... One tab. daily Mariusz Hector MD fu Mariusz Hector MD fu Mariusz Hector MD EP initial evaluatio n faxed 04/12/14 1014: T he following medications were removed from the medication list: Metoprolol Tartrate 50 Mg Tabs (Metoprolol tartrate) ..... One tab po twice daily Multaq 400 Mg Tabs (Dronedarone hcl) ..... One tab with morning meal po one tab with evening meal. His updated medication list for this problem includes: Lisinopril 10 Mg Oral Tabs (Lisinopril) ..... One tablet each night Betapace 80 Mg Oral Tabs (Sotalol hcl) ..... One tablet twice a day Aspirin 81 Mg Tabs (Aspirin) ..... One tab. daily Telly Garner MD EP initial evaluatio n faxed 04/12/14 1014: T he following medications were removed from the medication list: Metoprolol Tartrate 50 Mg Tabs (Metoprolol tartrate) ..... One tab po twice daily Multaq 400 Mg Tabs (Dronedarone hcl) ..... One tab with morning meal po one tab with evening meal. His updated medication list for this problem includes: Betapace 80 Mg Oral Tabs (Sotalol hcl) ..... One tablet twice a day Aspirin 81 Mg Tabs (Aspirin) ..... One tab. daily Telly Garner MD FOLLOW UP: T he following medications were removed from the medication list: Vytorin 10-40 Mg Tabs (Ezetimibe-simvastatin) ..... One tab. at bedtime His updated medication list for this problem includes: Lovaza 1 Gm Caps (Hsjyh-2-eznh ethyl esters) ..... Dispense as written Trilipix 135 Mg Cpdr (Choline fenofibrate) ..... One tab. daily - dispense as written Mariusz Hector MD FOLLOW UP: H is updated medication list for this problem includes: Metoprolol Tartrate 50 Mg Tabs (Metoprolol tartrate) ..... One tab po twice daily Mariusz Hector MD FOLLOW UP: H is updated medication list for this problem includes: Metoprolol Tartrate 50 Mg Tabs (Metoprolol tartrate) ..... One tab po twice daily Multaq 400 Mg Tabs (Dronedarone hcl) ..... One tab with morning meal po one tab with evening meal. Orders: E KG ([id number]) Mariusz Hector MD FOLLOW UP: H is updated medication list for this problem includes: Metoprolol Tartrate 50 Mg Tabs (Metoprolol tartrate) ..... One tab po twice daily Multaq 400 Mg Tabs (Dronedarone hcl) ..... One tab with morning meal po one tab with evening meal. Mariusz Hector MD follow up: H is updated medication list for this problem includes: Metoprolol Tartrate 50 Mg Tabs (Metoprolol tartrate) ..... One tab po twice daily Multaq 400 Mg Tabs (Dronedarone hcl) ..... One tab with morning meal po one tab with evening meal. BP today: 130/64 Prior BP: 138/92 (02/10/2012) P T: 12.9 (01/03/2012) INR: 1.3 (01/03/2012) H gb: 15.1 (12/28/2010) HCT: 44.2 (12/28/2010) RBC: 4.48 (12/28/2010) WBC: 4.6 (12/28/2010) B UN: 15 (01/03/2012) Creat: 1.05 (01/03/2012) Glucose: 96 (01/03/2012) N a+: 143 (01/03/2012) K+: 4.5 (01/03/2012) Cl: 106 (01/03/2012) Calcium: 9.8 (01/03/2012) TSH: 1.61 (12/28/2010) EP Study: EP study with coronary sinus catheter, 3-dimensional nonfluoroscopic mapping and radiofrequency ablation of supraventricular tachycardia. C H (09/06/2009) N uclear Stress Findings: 1. Abnormal Regadenoson mediated myocardial perfusion study 2 . Mild reversible perfusion defect of the mid to distal infero lateral wall noted. 3 . Normal left ventricular systolic function with a calculated ejection fraction of 70% CNE (06/28/2009) Orders: E KG ([id number]) Mariusz Hector MD follow up: H is updated medication list for this problem includes: Vytorin 10-40 Mg Tabs (Ezetimibe-simvastatin) ..... One tab. at bedtime Lovaza 1 Gm Caps (Hbmrv-0-dgvw ethyl esters) ..... Dispense as written Trilipix 135 Mg Cpdr (Choline fenofibrate) ..... One tab. daily - dispense as written BP today: 130/64 Prior BP: 138/92 (02/10/2012) C HOL: 138 (12/28/2010) LDL: 49 (12/28/2010) HDL: 42 (12/28/2010) T (12/28/2010) Mariusz Hector MD follow up: H is updated medication list for this problem includes: Metoprolol Tartrate 50 Mg Tabs (Metoprolol tartrate) ..... One tab po twice daily BP today: 130/64 P rior BP: 138/92 (02/10/2012) Labs Reviewed: C reat: 1.05 (01/03/2012) C hol: 138 (12/28/2010) HDL: 42 (12/28/2010) LDL: 49 (12/28/2010) T (12/28/2010) Mariusz Hector MD follow up: H is updated medication list for this problem includes: Metoprolol Tartrate 50 Mg Tabs (Metoprolol tartrate) ..... One tab po twice daily Multaq 400 Mg Tabs (Dronedarone hcl) ..... One tab with morning meal po one tab with evening meal. BP today: 130/64 Prior BP: 138/92 (02/10/2012) H gb: 15.1 (12/28/2010) HCT: 44.2 (12/28/2010) RBC: 4.48 (12/28/2010) WBC: 4.6 (12/28/2010) B UN: 15 (01/03/2012) Creat: 1.05 (01/03/2012) Glucose: 96 (01/03/2012) N a+: 143 (01/03/2012) K+: 4.5 (01/03/2012) Cl: 106 (01/03/2012) Calcium: 9.8 (01/03/2012) TSH: 1.61 (12/28/2010) EP Study: EP study with coronary sinus catheter, 3-dimensional nonfluoroscopic mapping and radiofrequency ablation of supraventricular tachycardia. CH (09/06/2009) N uclear Stress Findings: 1. Abnormal Regadenoson mediated myocardial perfusion study 2 . Mild reversible perfusion defect of the mid to distal infero lateral wall noted. 3 . Normal left ventricular systolic function with a calculated ejection fraction of 70% CNE (06/28/2009) Mariusz Hector MD test results: H is updated medication list for this problem includes: Metoprolol Tartrate 50 Mg Tabs (Metoprolol tartrate) ..... One tab po twice daily Multaq 400 Mg Tabs (Dronedarone hcl) ..... One tab with morning meal po one tab with evening meal. BP today: / Prior BP: 95/71 (02/03/2012) P T: 12.9 (01/03/2012) INR: 1.3 (01/03/2012) H gb: 15.1 (12/28/2010) HCT: 44.2 (12/28/2010) RBC: 4.48 (12/28/2010) WBC: 4.6 (12/28/2010) B UN: 15 (01/03/2012) Creat: 1.05 (01/03/2012) Glucose: 96 (01/03/2012) N a+: 143 (01/03/2012) K+: 4.5 (01/03/2012) Cl: 106 (01/03/2012) Calcium: 9.8 (01/03/2012) TSH: 1.61 (12/28/2010) EP Study: EP study with coronary sinus catheter, 3-dimensional nonfluoroscopic mapping and radiofrequency ablation of supraventricular tachycardia. C H (09/06/2009) N uclear Stress Findings: 1. Abnormal Regadenoson mediated myocardial perfusion study 2 . Mild reversible perfusion defect of the mid to distal infero lateral wall noted. 3. Normal left ventricular systolic function with a calculated ejection fraction of 70% CNE (06/28/2009) Mariusz Hector MD test results: H is updated medication list for this problem includes: Vytorin 10-40 Mg Tabs (Ezetimibe-simvastatin) ..... One tab. at bedtime Lovaza 1 Gm Caps (Mdvif-4-ursd ethyl esters) ..... Dispense as written Trilipix 135 Mg Cpdr (Choline fenofibrate) ..... One tab. daily - dispense as written Niaspan 500 Mg Tbcr (Niacin (antihyperlipidemic)) ..... Three tabs. at bedtime - dispense as written BP today: / Prior BP: 95/71 (02/03/2012) C HOL: 138 (12/28/2010) LDL: 49 (12/28/2010) HDL: 42 (12/28/2010) T (12/28/2010) Mariusz Hector MD test results: H is updated medication list for this problem includes: Metoprolol Tartrate 50 Mg Tabs (Metoprolol tartrate) ..... One tab po twice daily Prior BP: 95/71 (02/03/2012) L abs Reviewed: C reat: 1.05 (01/03/2012) C hol: 138 (12/28/2010) HDL: 42 (12/28/2010) LDL: 49 (12/28/2010) T (12/28/2010) Mariusz Hector MD follow up: T he following medications were removed from the medication list: Propafenone Hcl 225 Mg Tabs (Propafenone hcl) ..... 1 tablet by mouth twice daily His updated medication list for this problem includes: Metoprolol Tartrate 50 Mg Tabs (Metoprolol tartrate) ..... One tab po twice daily Multaq 400 Mg Tabs (Dronedarone hcl) ..... One tab with morning meal po one tab with evening meal. Orders: E KG ([id number]) e Prescribe - Check this box if eRx is used (CPT-[id number]) Katherin Regalado MD follow up: H is updated medication list for this problem includes: Metoprolol Tartrate 50 Mg Tabs (Metoprolol tartrate) ..... One tab po twice daily BP today: 95/71 P rior BP: 138/86 (01/27/2012) Labs Reviewed: C reat: 1.05 (01/03/2012) C hol: 138 (12/28/2010) HDL: 42 (12/28/2010) LDL: 49 (12/28/2010) T (12/28/2010) Katherin Regalado MD follow up: H is updated medication list for this problem includes: Vytorin 10-40 Mg Tabs (Ezetimibe-simvastatin) ..... One tab. at bedtime Lovaza 1 Gm Caps (Vveye-9-aswu ethyl esters) ..... Dispense as written Trilipix 135 Mg Cpdr (Choline fenofibrate) ..... One tab. daily - dispense as written Niaspan 500 Mg Tbcr (Niacin (antihyperlipidemic)) ..... Three tabs. at bedtime - dispense as written BP today: 95/71 Prior BP: 138/86 (01/27/2012) C HOL: 138 (12/28/2010) LDL: 49 (12/28/2010) HDL: 42 (12/28/2010) T (12/28/2010) Katherin Regalado MD follow up: T he following medications were removed from the medication list: Propafenone Hcl 225 Mg Tabs (Propafenone hcl) ..... 1 tablet by mouth twice daily His updated medication list for this problem includes: Metoprolol Tartrate 50 Mg Tabs (Metoprolol tartrate) ..... One tab po twice daily Multaq 400 Mg Tabs (Dronedarone hcl) ..... One tab with morning meal po one tab with evening meal. BP today: 95/71 Prior BP: 138/86 (01/27/2012) H gb: 15.1 (12/28/2010) HCT: 44.2 (12/28/2010) RBC: 4.48 (12/28/2010) WBC: 4.6 (12/28/2010) B UN: 15 (01/03/2012) Creat: 1.05 (01/03/2012) Glucose: 96 (01/03/2012) N a+: 143 (01/03/2012) K+: 4.5 (01/03/2012) Cl: 106 (01/03/2012) Calcium: 9.8 (01/03/2012) TSH: 1.61 (12/28/2010) EP Study: EP study with coronary sinus catheter, 3-dimensional nonfluoroscopic mapping and radiofrequency ablation of supraventricular tachycardia. CH (09/06/2009) N uclear Stress Findings: 1. Abnormal Regadenoson mediated myocardial perfusion study 2 . Mild reversible perfusion defect of the mid to distal infero lateral wall noted. 3 . Normal left ventricular systolic function with a calculated ejection fraction of 70% CNE (06/28/2009) Katherin Regalado MD Follow-up- cardiover servando : H is updated medication list for this problem includes: Metoprolol Tartrate 100 Mg Tabs (Metoprolol tartrate) ..... One tab twice daily Propafenone Hcl 225 Mg Tabs (Propafenone hcl) ..... As directed Orders: E KG (CPT-[id number]) BP today: 138/86 Prior BP: 155/93 (12/18/2011) P T: 12.9 (01/03/2012) INR: 1.3 (01/03/2012) H gb: 15.1 (12/28/2010) HCT: 44.2 (12/28/2010) RBC: 4.48 (12/28/2010) WBC: 4.6 (12/28/2010) B UN: 15 (01/03/2012) Creat: 1.05 (01/03/2012) Glucose: 96 (01/03/2012) N a+: 143 (01/03/2012) K+: 4.5 (01/03/2012) Cl: 106 (01/03/2012) Calcium: 9.8 (01/03/2012) TSH: 1.61 (12/28/2010) EP Study: EP study with coronary sinus catheter, 3-dimensional nonfluoroscopic mapping and radiofrequency ablation of supraventricular tachycardia. CH (09/06/2009) N uclear Stress Findings: 1. Abnormal Regadenoson mediated myocardial perfusion study 2 . Mild reversible perfusion defect of the mid to distal infero lateral wall noted. 3 . Normal left ventricular systolic function with a calculated ejection fraction of 70% CNE (06/28/2009) Mariusz Hector MD Follow-up- cardiover servando : H is updated medication list for this problem includes: Vytorin 10-40 Mg Tabs (Ezetimibe-simvastatin) ..... One tab. at bedtime Lovaza 1 Gm Caps (Iiqjm-8-fvxc ethyl esters) ..... Dispense as written Trilipix 135 Mg Cpdr (Choline fenofibrate) ..... One tab. daily - dispense as written Niaspan 500 Mg Tbcr (Niacin (antihyperlipidemic)) ..... Three tabs. at bedtime - dispense as written BP today: 138/86 Prior BP: 155/93 (12/18/2011) C HOL: 138 (12/28/2010) LDL: 49 (12/28/2010) HDL: 42 (12/28/2010) T (12/28/2010) Mariusz Hector MD Follow-up- cardiover servando : H is updated medication list for this problem includes: Metoprolol Tartrate 100 Mg Tabs (Metoprolol tartrate) ..... One tab twice daily BP today: 138/86 Prior BP: 155/93 (12/18/2011) Labs Reviewed: C reat: 1.05 (01/03/2012) C hol: 138 (12/28/2010) HDL: 42 (12/28/2010) LDL: 49 (12/28/2010) T (12/28/2010) Mariusz Hector MD Follow-up- cardiover servando : H is updated medication list for this problem includes: Metoprolol Tartrate 100 Mg Tabs (Metoprolol tartrate) ..... One tab twice daily Propafenone Hcl 225 Mg Tabs (Propafenone hcl) ..... As directed BP today: 138/86 Prior BP: 155/93 (12/18/2011) H gb: 15.1 (12/28/2010) HCT: 44.2 (12/28/2010) RBC: 4.48 (12/28/2010) WBC: 4.6 (12/28/2010) B UN: 15 (01/03/2012) Creat: 1.05 (01/03/2012) Glucose: 96 (01/03/2012) N a+: 143 (01/03/2012) K+: 4.5 (01/03/2012) Cl: 106 (01/03/2012) Calcium: 9.8 (01/03/2012) TSH: 1.61 (12/28/2010) EP Study: EP study with coronary sinus catheter, 3-dimensional nonfluoroscopic mapping and radiofrequency ablation of supraventricular tachycardia. CH (09/06/2009) N uclear Stress Findings: 1. Abnormal Regadenoson mediated myocardial perfusion study 2 . Mild reversible perfusion defect of the mid to distal infero lateral wall noted. 3 . Normal left ventricular systolic function with a calculated ejection fraction of 70% CNE (06/28/2009) Mariusz Hector MD follow up: H is updated medication list for this problem includes: Metoprolol Tartrate 100 Mg Tabs (Metoprolol tartrate) ..... One tab twice daily BP today: 155/93 Prior BP: 140/80 (07/03/2011) H gb: 15.1 (12/28/2010) HCT: 44.2 (12/28/2010) RBC: 4.48 (12/28/2010) WBC: 4.6 (12/28/2010) B UN: 12 (12/28/2010) Creat: 1.03 (12/28/2010) Glucose: 103 (12/28/2010) N a+: 142 (12/28/2010) K+: 4.3 (12/28/2010) Cl: 108 (12/28/2010) Calcium: 9.4 (12/28/2010) TSH: 1.61 (12/28/2010) EP Study: EP study with coronary sinus catheter, 3-dimensional nonfluoroscopic mapping and radiofrequency ablation of supraventricular tachycardia. CH (09/06/2009) N uclear Stress Findings: 1. Abnormal Regadenoson mediated myocardial perfusion study 2 . Mild reversible perfusion defect of the mid to distal infero lateral wall noted. 3 . Normal left ventricular systolic function with a calculated ejection fraction of 70% CNE (06/28/2009) Mariusz Hector MD follow up: H is updated medication list for this problem includes: Metoprolol Tartrate 100 Mg Tabs (Metoprolol tartrate) ..... One tab twice daily BP today: 155/93 P rior BP: 140/80 (07/03/2011) Labs Reviewed: C reat: 1.03 (12/28/2010) C hol: 138 (12/28/2010) HDL: 42 (12/28/2010) LDL: 49 (12/28/2010) T (12/28/2010) Mariusz Hector MD follow up: H is updated medication list for this problem includes: Vytorin 10-40 Mg Tabs (Ezetimibe-simvastatin) ..... One tab. at bedtime Lovaza 1 Gm Caps (Zvlri-4-nvmt ethyl esters) ..... Dispense as written Trilipix 135 Mg Cpdr (Choline fenofibrate) ..... One tab. daily - dispense as written Niaspan 500 Mg Tbcr (Niacin (antihyperlipidemic)) ..... Three tabs. at bedtime - dispense as written BP today: 155/93 Prior BP: 140/80 (07/03/2011) C HOL: 138 (12/28/2010) LDL: 49 (12/28/2010) HDL: 42 (12/28/2010) T (12/28/2010) Mariusz Hector MD follow up: H is updated medication list for this problem includes: Metoprolol Tartrate 100 Mg Tabs (Metoprolol tartrate) ..... One tab twice daily Orders: C ardioversion - CNE (CPT-[id number]) C omplete Echo (CPT-[id number]) e Prescribe - Check this box if eRx is used (CPT-G8553) BP today: 155/93 Prior BP: 140/80 (07/03/2011) H gb: 15.1 (12/28/2010) HCT: 44.2 (12/28/2010) RBC: 4.48 (12/28/2010) WBC: 4.6 (12/28/2010) B UN: 12 (12/28/2010) Creat: 1.03 (12/28/2010) Glucose: 103 (12/28/2010) N a+: 142 (12/28/2010) K+: 4.3 (12/28/2010) Cl: 108 (12/28/2010) Calcium: 9.4 (12/28/2010) TSH: 1.61 (12/28/2010) EP Study: EP study with coronary sinus catheter, 3-dimensional nonfluoroscopic mapping and radiofrequency ablation of supraventricular tachycardia. CH (09/06/2009) N uclear Stress Findings: 1. Abnormal Regadenoson mediated myocardial perfusion study 2 . Mild reversible perfusion defect of the mid to distal infero lateral wall noted. 3 . Normal left ventricular systolic function with a calculated ejection fraction of 70% CNE (06/28/2009) Mariusz Hector MD follow up : H is updated medication list for this problem includes: Metoprolol Tartrate 50 Mg Tabs (Metoprolol tartrate) ..... 1 tab twice daily BP today: 140/80 Prior BP: 140/85 (06/20/2010) H gb: 15.1 (12/28/2010) HCT: 44.2 (12/28/2010) RBC: 4.48 (12/28/2010) WBC: 4.6 (12/28/2010) B UN: 12 (12/28/2010) Creat: 1.03 (12/28/2010) Glucose: 103 (12/28/2010) N a+: 142 (12/28/2010) K+: 4.3 (12/28/2010) Cl: 108 (12/28/2010) Calcium: 9.4 (12/28/2010) TSH: 1.61 (12/28/2010) EP Study: EP study with coronary sinus catheter, 3-dimensional nonfluoroscopic mapping and radiofrequency ablation of supraventricular tachycardia. CH (09/06/2009) N uclear Stress Findings: 1. Abnormal Regadenoson mediated myocardial perfusion study 2 . Mild reversible perfusion defect of the mid to distal infero lateral wall noted. 3 . Normal left ventricular systolic function with a calculated ejection fraction of 70% CNE (06/28/2009) E chocardiogram: Patient is in atrial fibrillation. Normal left ventricular size. Mild concentric left ventricular hypertrophy. Left ventricular ejection fraction is estimated at 70%. There is mild enlargement of the left atrium. Aortic root is mildly dilated. No significant valvular abnormalities. CNE (06/28/2009) Mariusz Hector MD follow up : H is updated medication list for this problem includes: Metoprolol Tartrate 50 Mg Tabs (Metoprolol tartrate) ..... 1 tab twice daily BP today: 140/80 P rior BP: 140/85 (06/20/2010) Labs Reviewed: C reat: 1.03 (12/28/2010) C hol: 138 (12/28/2010) HDL: 42 (12/28/2010) LDL: 49 (12/28/2010) T (12/28/2010) Mariusz Hector MD follow up : T he following medications were removed from the medication list: Trilipix 135 Mg Cpdr (Choline fenofibrate) ..... One tab. daily - dispense as written Niaspan 500 Mg Tbcr (Niacin (antihyperlipidemic)) ..... One tab. at bedtime - dispense as written His updated medication list for this problem includes: Vytorin 10-40 Mg Tabs (Ezetimibe-simvastatin) ..... One tab. at bedtime BP today: 140/80 Prior BP: 140/85 (06/20/2010) C HOL: 138 (12/28/2010) LDL: 49 (12/28/2010) HDL: 42 (12/28/2010) T (12/28/2010) Mariusz Hector MD follow up : H is updated medication list for this problem includes: Metoprolol Tartrate 50 Mg Tabs (Metoprolol tartrate) ..... 1 tab twice daily Orders: E KG (CPT-[id number]) BP today: 140/80 Prior BP: 140/85 (06/20/2010) H gb: 15.1 (12/28/2010) HCT: 44.2 (12/28/2010) RBC: 4.48 (12/28/2010) WBC: 4.6 (12/28/2010) B UN: 12 (12/28/2010) Creat: 1.03 (12/28/2010) Glucose: 103 (12/28/2010) N a+: 142 (12/28/2010) K+: 4.3 (12/28/2010) Cl: 108 (12/28/2010) Calcium: 9.4 (12/28/2010) TSH: 1.61 (12/28/2010) EP Study: EP study with coronary sinus catheter, 3-dimensional nonfluoroscopic mapping and radiofrequency ablation of supraventricular tachycardia. CH (09/06/2009) N uclear Stress Findings: 1. Abnormal Regadenoson mediated myocardial perfusion study 2 . Mild reversible perfusion defect of the mid to distal infero lateral wall noted. 3 . Normal left ventricular systolic function with a calculated ejection fraction of 70% CNE (06/28/2009) E chocardiogram: Patient is in atrial fibrillation. Normal left ventricular size. Mild concentric left ventricular hypertrophy. Left ventricular ejection fraction is estimated at 70%. There is mild enlargement of the left atrium. Aortic root is mildly dilated. No significant valvular abnormalities. CNE (06/28/2009) Mariusz Hector MD FOLLOW UP: T he following medications were removed from the medication list: Coumadin 5 Mg Tabs (Warfarin sodium) ..... Coumdin 2.5 daily , 5 mg daily His updated medication list for this problem includes: Metoprolol Tartrate 50 Mg Tabs (Metoprolol tartrate) ..... 1 tab twice daily BP today: 140/85 Prior BP: 137/77 (01/03/2010) B UN: 23 (06/22/2009) Creat: 1.06 (06/22/2009) Glucose: 84 (06/22/2009) N a+: 141 (06/22/2009) K+: 4.8 (06/22/2009) Cl: 108 (06/22/2009) Calcium: 9.0 (06/22/2009) EP Study: EP study with coronary sinus catheter, 3-dimensional nonfluoroscopic mapping and radiofrequency ablation of supraventricular tachycardia. CH (09/06/2009) N uclear Stress Findings: 1. Abnormal Regadenoson mediated myocardial perfusion study 2 . Mild reversible perfusion defect of the mid to distal infero lateral wall noted. 3 . Normal left ventricular systolic function with a calculated ejection fraction of 70% CNE (06/28/2009) Echocardiogram: Patient is in atrial fibrillation. Normal left ventricular size. Mild concentric left ventricular hypertrophy. Left ventricular ejection fraction is estimated at 70%. There is mild enlargement of the left atrium. Aortic root is mildly dilated. No significant valvular abnormalities. CNE (06/28/2009) Mariusz Hector MD FOLLOW UP: H is updated medication list for this problem includes: Metoprolol Tartrate 50 Mg Tabs (Metoprolol tartrate) ..... 1 tab twice daily BP today: 140/85 P rior BP: 137/77 (01/03/2010) Labs Reviewed: C reat: 1.06 (06/22/2009) C hol: 165 (06/22/2009) HDL: 35 (06/22/2009) LDL: 78 MG/DL (CALC) (06/22/2009) T (06/22/2009) Mariusz Hector MD FOLLOW UP: H is updated medication list for this problem includes: Vytorin 10-40 Mg Tabs (Ezetimibe-simvastatin) ..... One tab. at bedtime Trilipix 135 Mg Cpdr (Choline fenofibrate) ..... One tab. daily - dispense as written Niaspan 500 Mg Tbcr (Niacin (antihyperlipidemic)) ..... One tab. at bedtime - dispense as written BP today: 140/85 Prior BP: 137/77 (01/03/2010) CHOL: 165 (06/22/2009) LDL: 78 MG/DL (CALC) (06/22/2009) HDL: 35 (06/22/2009) T (06/22/2009) Mariusz Hector MD FOLLOW UP: T he following medications were removed from the medication list: Coumadin 5 Mg Tabs (Warfarin sodium) ..... Coumdin 2.5 daily , 5 mg daily His updated medication list for this problem includes: Metoprolol Tartrate 50 Mg Tabs (Metoprolol tartrate) ..... 1 tab twice daily BP today: 140/85 Prior BP: 137/77 (01/03/2010) B UN: 23 (06/22/2009) Creat: 1.06 (06/22/2009) Glucose: 84 (06/22/2009) N a+: 141 (06/22/2009) K+: 4.8 (06/22/2009) Cl: 108 (06/22/2009) Calcium: 9.0 (06/22/2009) EP Study: EP study with coronary sinus catheter, 3-dimensional nonfluoroscopic mapping and radiofrequency ablation of supraventricular tachycardia. CH (09/06/2009) N uclear Stress Findings: 1. Abnormal Regadenoson mediated myocardial perfusion study 2 . Mild reversible perfusion defect of the mid to distal infero lateral wall noted. 3 . Normal left ventricular systolic function with a calculated ejection fraction of 70% CNE (06/28/2009) Echocardiogram: Patient is in atrial fibrillation. Normal left ventricular size. Mild concentric left ventricular hypertrophy. Left ventricular ejection fraction is estimated at 70%. There is mild enlargement of the left atrium. Aortic root is mildly dilated. No significant valvular abnormalities. CNE (06/28/2009) Mariusz Hector MD 6 month follow up: T he following medications were removed from the medication list: Aspirin 325 Mg Tabs (Aspirin) ..... One tab daily His updated medication list for this problem includes: Metoprolol Tartrate 50 Mg Tabs (Metoprolol tartrate) ..... 1 tab twice daily BP today: 137/77 P rior BP: 135/93 (07/05/2009) Labs Reviewed: C reat: 1.06 (06/22/2009) C hol: 165 (06/22/2009) HDL: 35 (06/22/2009) LDL: 78 MG/DL (CALC) (06/22/2009) T (06/22/2009) Katherin Regalado MD 6 month follow up: T he following medications were removed from the medication list: Niaspan 500 Mg Tbcr (Niacin (antihyperlipidemic)) ..... One tab. at bedtime - dispense as written His updated medication list for this problem includes: Vytorin 10-40 Mg Tabs (Ezetimibe-simvastatin) ..... One tab. at bedtime Trilipix 135 Mg Cpdr (Choline fenofibrate) ..... One tab. daily - dispense as written BP today: 137/77 Prior BP: 135/93 (07/05/2009) C HOL: 165 (06/22/2009) LDL: 78 MG/DL (CALC) (06/22/2009) HDL: 35 (06/22/2009) T (06/22/2009) Katherin Regalado MD 6 month follow up: T he following medications were removed from the medication list: Aspirin 325 Mg Tabs (Aspirin) ..... One tab daily His updated medication list for this problem includes: Metoprolol Tartrate 50 Mg Tabs (Metoprolol tartrate) ..... 1 tab twice daily BP today: 137/77 Prior BP: 135/93 (07/05/2009) B UN: 23 (06/22/2009) Creat: 1.06 (06/22/2009) Glucose: 84 (06/22/2009) N a+: 141 (06/22/2009) K+: 4.8 (06/22/2009) Cl: 108 (06/22/2009) Calcium: 9.0 (06/22/2009) EP Study: EP study with coronary sinus catheter, 3-dimensional nonfluoroscopic mapping and radiofrequency ablation of supraventricular tachycardia. (09/06/2009) N uclear Stress Findings: 1. Abnormal Regadenoson mediated myocardial perfusion study 2 . Mild reversible perfusion defect of the mid to distal infero lateral wall noted. 3 . Normal left ventricular systolic function with a calculated ejection fraction of 70% CNE (06/28/2009) E chocardiogram: Patient is in atrial fibrillation. Normal left ventricular size. Mild concentric left ventricular hypertrophy. Left ventricular ejection fraction is estimated at 70%. There is mild enlargement of the left atrium. Aortic root is mildly dilated. No significant valvular abnormalities. CNE (06/28/2009) Katherin Regalado MD 6 month follow up: T he following medications were removed from the medication list: Aspirin 325 Mg Tabs (Aspirin) ..... One tab daily His updated medication list for this problem includes: Metoprolol Tartrate 50 Mg Tabs (Metoprolol tartrate) ..... 1 tab twice daily Katherin Regalado MD 3 month follow-up: H is updated medication list for this problem includes: Metoprolol Tartrate 50 Mg Tabs (Metoprolol tartrate) ..... 1 tab twice daily Aspirin 325 Mg Tabs (Aspirin) ..... One tab daily BP today: 135/93 Prior BP: 126/80 (04/05/2009) B UN: 23 (06/22/2009) Creat: 1.06 (06/22/2009) Glucose: 84 (06/22/2009) N a+: 141 (06/22/2009) K+: 4.8 (06/22/2009) Cl: 108 (06/22/2009) Calcium: 9.0 (06/22/2009) Nuclear Stress Findings: 1. Abnormal Regadenoson mediated myocardial perfusion study 2 . Mild reversible perfusion defect of the mid to distal infero lateral wall noted. 3 . Normal left ventricular systolic function with a calculated ejection fraction of 70% CNE (06/28/2009) E chocardiogram: Patient is in atrial fibrillation. Normal left ventricular size. Mild concentric left ventricular hypertrophy. Left ventricular ejection fraction is estimated at 70%. There is mild enlargement of the left atrium. Aortic root is mildly dilated. No significant valvular abnormalities. CNE (06/28/2009) Mariusz Hcetor MD 3 month follow-up: T he following medications were removed from the medication list: Lovaza 1 Gm Caps (Czamg-6-zsmg ethyl esters) ..... Take one twice daily Lovaza Caps (Ynkck-1-ccvt ethyl esters caps) His updated medication list for this problem includes: Vytorin 10-40 Mg Tabs (Ezetimibe-simvastatin) ..... One tab. at bedtime Trilipix 135 Mg Cpdr (Choline fenofibrate) ..... One tab. daily - dispense as written Niaspan 500 Mg Tbcr (Niacin (antihyperlipidemic)) ..... One tab. at bedtime - dispense as written BP today: 135/93 Prior BP: 126/80 (04/05/2009) C HOL: 165 (06/22/2009) LDL: 78 MG/DL (CALC) (06/22/2009) HDL: 35 (06/22/2009) T (06/22/2009) Mariusz Hector MD 3 month follow-up: H is updated medication list for this problem includes: Metoprolol Tartrate 50 Mg Tabs (Metoprolol tartrate) ..... 1 tab twice daily Aspirin 325 Mg Tabs (Aspirin) ..... One tab daily BP today: 135/93 P rior BP: 126/80 (04/05/2009) Labs Reviewed: C reat: 1.06 (06/22/2009) C hol: 165 (06/22/2009) HDL: 35 (06/22/2009) LDL: 78 MG/DL (CALC) (06/22/2009) T (06/22/2009) Mariusz Hector MD 3 month follow-up: H is updated medication list for this problem includes: Metoprolol Tartrate 50 Mg Tabs (Metoprolol tartrate) ..... 1 tab twice daily Aspirin 325 Mg Tabs (Aspirin) ..... One tab daily BP today: 135/93 Prior BP: 126/80 (04/05/2009) B UN: 23 (06/22/2009) Creat: 1.06 (06/22/2009) Glucose: 84 (06/22/2009) N a+: 141 (06/22/2009) K+: 4.8 (06/22/2009) Cl: 108 (06/22/2009) Calcium: 9.0 (06/22/2009) Nuclear Stress Findings: 1. Abnormal Regadenoson mediated myocardial perfusion study 2 . Mild reversible perfusion defect of the mid to distal infero lateral wall noted. 3 . Normal left ventricular systolic function with a calculated ejection fraction of 70% CNE (06/28/2009) E chocardiogram: Patient is in atrial fibrillation. Normal left ventricular size. Mild concentric left ventricular hypertrophy. Left ventricular ejection fraction is estimated at 70%. There is mild enlargement of the left atrium. Aortic root is mildly dilated. No significant valvular abnormalities. CNE (06/28/2009) Mariusz Hector MD f/u: H is updated medication list for this problem includes: Metoprolol Tartrate 50 Mg Tabs (Metoprolol tartrate) ..... 1 tab twice daily Aspirin 325 Mg Tabs (Aspirin) ..... One tab daily BP today: 126/80 Prior BP: 131/78 (04/06/2008) N uclear Stress Findings: 1. Normal Nils protocol exercise tolerance test. 2 . Normal left ventricular size and function with a calculated ejection fraction of 72%. 3 . Myocardial scintigraphy is normal without evidence for previous myocardial infarction or reversible ischemia. (01/20/2008) E chocardiogram: Left Ventricle: The left ventricular chamber size is normal. Wall thickness is increased consistent with moderate c oncentric left ventricular hypertrophy. LV EF is estimated at 70%. R ight Ventricle: The right ventricle is normal in size. L eft Atrium: Normal left atrium. R ight Atrium: Normal right atrium. M itral Valve: The Mitral Valve is structurally normal and appears to open and close adequately. A ortic Valve: The aortic valve appears mildly thickened (sclerotic). T ricuspid Valve: There is trace tricuspid regurgitation. P ulmonic Valve: Normal pulmonic valve. P ericardium/Pleura: Normal pericardium with no significant pericardial effusion. No pleural effusion noted. A lito: Normal aortic root. D oppler: Minimal tricuspid regurgitation. (01/20/2008) Mariusz Hector MD f/u: H is updated medication list for this problem includes: Metoprolol Tartrate 50 Mg Tabs (Metoprolol tartrate) ..... 1 tab twice daily Aspirin 325 Mg Tabs (Aspirin) ..... One tab daily Orders: C omplete Echo ([id number]) S tress Test - Nuclear (64015) BP today: 126/80 P rior BP: 131/78 (04/06/2008) Mariusz Hector MD f/u: H is updated medication list for this problem includes: Vytorin 10-40 Mg Tabs (Ezetimibe-simvastatin) ..... One tab. at bedtime Lovaza 1 Gm Caps (Mhyhz-2-sins ethyl esters) ..... Take one twice daily Trilipix 135 Mg Cpdr (Choline fenofibrate) ..... One tab. daily - dispense as written BP today: 126/80 Prior BP: 131/78 (04/06/2008) Mariusz Hector MD f/u: H is updated medication list for this problem includes: Metoprolol Tartrate 50 Mg Tabs (Metoprolol tartrate) ..... 1 tab twice daily Aspirin 325 Mg Tabs (Aspirin) ..... One tab daily Orders: C omplete Echo ([id number]) S tress Test - Nuclear (27501) BP today: 126/80 Prior BP: 131/78 (04/06/2008) N uclear Stress Findings: 1. Normal Nils protocol exercise tolerance test. 2 . Normal left ventricular size and function with a calculated ejection fraction of 72%. 3 . Myocardial scintigraphy is normal without evidence for previous myocardial infarction or reversible ischemia. (01/20/2008) E chocardiogram: Left Ventricle: The left ventricular chamber size is normal. Wall thickness is increased consistent with moderate c oncentric left ventricular hypertrophy. LV EF is estimated at 70%. R ight Ventricle: The right ventricle is normal in size. L eft Atrium: Normal left atrium. R ight Atrium: Normal right atrium. M itral Valve: The Mitral Valve is structurally normal and appears to open and close adequately. A ortic Valve: The aortic valve appears mildly thickened (sclerotic). T ricuspid Valve: There is trace tricuspid regurgitation. P ulmonic Valve: Normal pulmonic valve. P ericardium/Pleura: Normal pericardium with no significant pericardial effusion. No pleural effusion noted. A lito: Normal aortic root. D oppler: Minimal tricuspid regurgitation. (01/20/2008) Mariusz Hector MD FU: H is updated medication list for this problem includes: Metoprolol Tartrate 50 Mg Tabs (Metoprolol tartrate) ..... 1 tab twice daily Aspirin 325 Mg Tabs (Aspirin) ..... One tab daily B P today: 131/78 Prior BP: 151/89 (01/03/2008) N uclear Stress Findings: 1. Normal Nils protocol exercise tolerance test. 2 . Normal left ventricular size and function with a calculated ejection fraction of 72%. 3 . Myocardial scintigraphy is normal without evidence for previous myocardial infarction or reversible ischemia. (01/20/2008) E chocardiogram: Left Ventricle: The left ventricular chamber size is normal. Wall thickness is increased consistent with moderate c oncentric left ventricular hypertrophy. LV EF is estimated at 70%. R ight Ventricle: The right ventricle is normal in size. L eft Atrium: Normal left atrium. R ight Atrium: Normal right atrium. M itral Valve: The Mitral Valve is structurally normal and appears to open and close adequately. Aortic Valve: The aortic valve appears mildly thickened (sclerotic). T ricuspid Valve: There is trace tricuspid regurgitation. P ulmonic Valve: Normal pulmonic valve. P ericardium/Pleura: Normal pericardium with no significant pericardial effusion. No pleural effusion noted. A lito: Normal aortic root. D oppler: Minimal tricuspid regurgitation. (01/20/2008) Mariusz Hector MD FU: H is updated medication list for this problem includes: Vytorin 10-40 Mg Tabs (Ezetimibe-simvastatin) ..... One tab. at bedtime Lovaza Caps (Dcwmm-0-aqwd ethyl esters caps) ..... 1gm two caps daily BP today: 131/78 Prior BP: 151/89 (01/03/2008) Mariusz Hector MD FU: H is updated medication list for this problem includes: Metoprolol Tartrate 50 Mg Tabs (Metoprolol tartrate) ..... 1 tab twice daily Aspirin 325 Mg Tabs (Aspirin) ..... One tab daily BP today: 131/78 P rior BP: 151/89 (01/03/2008) Mariusz Hector MD FU: H is updated medication list for this problem includes: Metoprolol Tartrate 50 Mg Tabs (Metoprolol tartrate) ..... 1 tab twice daily Aspirin 325 Mg Tabs (Aspirin) ..... One tab daily B P today: 131/78 Prior BP: 151/89 (01/03/2008) N uclear Stress Findings: 1. Normal Nils protocol exercise tolerance test. 2 . Normal left ventricular size and function with a calculated ejection fraction of 72%. 3 . Myocardial scintigraphy is normal without evidence for previous myocardial infarction or reversible ischemia. (01/20/2008) E chocardiogram: Left Ventricle: The left ventricular chamber size is normal. Wall thickness is increased consistent with moderate c oncentric left ventricular hypertrophy. LV EF is estimated at 70%. R ight Ventricle: The right ventricle is normal in size. L eft Atrium: Normal left atrium. R ight Atrium: Normal right atrium. M itral Valve: The Mitral Valve is structurally normal and appears to open and close adequately. Aortic Valve: The aortic valve appears mildly thickened (sclerotic). T ricuspid Valve: There is trace tricuspid regurgitation. P ulmonic Valve: Normal pulmonic valve. P ericardium/Pleura: Normal pericardium with no significant pericardial effusion. No pleural effusion noted. A lito: Normal aortic root. D oppler: Minimal tricuspid regurgitation. (01/20/2008) Mariusz Hector MD Pt. with c/o more pa lps, follow-up visit w/EKG: H is updated medication list for this problem includes: Metoprolol Tartrate 50 Mg Tabs (Metoprolol tartrate) ..... 1 tab twice daily Aspirin 325 Mg Tabs (Aspirin) ..... One tab daily Orders: E KG (CPT-[id number]) BP today: 151/89 Prior BP: 146/85 (07/22/2007) N uclear Stress Findings: Post stress EF 54% N o EKG changes diagnostic for ischemia N ormal perfusion scan (07/13/2007) E chocardiogram: LV chamber size is normal EF of 65% M ild concentric LVH (07/13/2007) Mariusz Hector MD Pt. with c/o more shazia lps, follow-up visit w/EKG: H is updated medication list for this problem includes: Vytorin 10-40 Mg Tabs (Ezetimibe-simvastatin) ..... One tab. at bedtime Lovaza Caps (Jiqjf-3-eave ethyl esters caps) ..... 1gm two caps daily Orders: S tress Test - Nuclear ([id number]) BP today: 151/89 Prior BP: 146/85 (07/22/2007) Mariusz Hector MD Pt. with c/o more pa lps, follow-up visit w/EKG: H is updated medication list for this problem includes: Metoprolol Tartrate 50 Mg Tabs (Metoprolol tartrate) ..... 1 tab twice daily Aspirin 325 Mg Tabs (Aspirin) ..... One tab daily Orders: C omplete Echo (CPT-[id number]) BP today: 151/89 P rior BP: 146/85 (07/22/2007) Mariusz Hector MD Pt. with c/o more pa lps, follow-up visit w/EKG: H is updated medication list for this problem includes: Metoprolol Tartrate 50 Mg Tabs (Metoprolol tartrate) ..... 1 tab twice daily Aspirin 325 Mg Tabs (Aspirin) ..... One tab daily Orders: S tress Test - Nuclear ([id number]) BP today: 151/89 Prior BP: 146/85 (07/22/2007) N uclear Stress Findings: Post stress EF 54% No EKG changes diagnostic for ischemia N ormal perfusion scan (07/13/2007) E chocardiogram: LV chamber size is normal EF of 65% M ild concentric LVH (07/13/2007) Mariusz Hector MD READY TO SIGN: T he following medications were removed from the medication list: Lipitor 40 Mg Tabs (Atorvastatin calcium) ..... One tab. daily Welchol 625 Mg Tabs (Colesevelam hcl) ..... Qd His updated medication list for this problem includes: Vytorin 10-40 Mg Tabs (Ezetimibe-simvastatin) ..... One tab. at bedtime Mariusz Hector MD READY TO SIGN: T he following medications were removed from the medication list: Lopressor Tabs (Metoprolol tartrate tabs) ..... 25 mg bid His updated medication list for this problem includes: Metoprolol Tartrate 50 Mg Tabs (Metoprolol tartrate) ..... 2 qd Aspirin 325 Mg Tabs (Aspirin) ..... One tab daily Mariusz Hector MD READY TO SIGN: T he following medications were removed from the medication list: Lopressor Tabs (Metoprolol tartrate tabs) ..... 25 mg bid His updated medication list for this problem includes: Metoprolol Tartrate 50 Mg Tabs (Metoprolol tartrate) ..... 2 qd Aspirin 325 Mg Tabs (Aspirin) ..... One tab daily Orders: E KG (CPT-[id number]) Mariusz Hector MD Date Name Cardioversion - CNE BASIC METABOLIC PANE L W/EGFR FERRITIN IRON AND TOTAL IRON BINDING CAPACITY CBC (INCLUDES DIFF/P LT) CT Cardiac w/ contra st (Pre-Ablation) Mobile Cardiac Tele Complete Echo Mobile Cardiac Tele Complete Echo Holter Monitor 24 Hr BASIC METABOLIC PANE L W/EGFR PROTHROMBIN TIME WIT H INR Complete Echo Cardioversion - CNE LIPID PANEL Stress Test - Nuclea r Complete Echo Stress Test - Nuclea r Complete Echo 35215 MOD Complex HISTORY OF PROCEDURES Procedure Date Procedure Name Provider Procedure Notes S tatus EKG Jonathan Mckeon DO comple michele EKG Mariusz Hector MD complete d EKG Jonathan Mckeon DO Repeat EK G on Thursday completed SNOMED-CT: [id number] Current Medications Documented Jonathan Mckeon DO completed GEOVANNA Regalado MD co mpleted EKG Katherin Regalado MD completed SNOMED-CT: 492106792709585 Current Medications Documented Katherin Regalado MD completed EKG Lucien Hu DISPLAY TRIMMER completed SNOMED-CT: [id number] Current Medications Documented Lucien Hu DISPLAY TRIMMER completed EKG Jonathan Mckeon DO comple michele SNOMED-CT: [id number] Current Medications Documented Jonathan Mckeon DO completed SNOMED-CT: 849669873740846 Current Medications Documented Mariusz Hector MD completed Mobile Cardiac Telem etry - Tech Mariusz Hector MD completed Mobile Cardiac Telem etry - Prof Mariusz Hector MD completed EKG Mariusz Hector MD complete d SNOMED-CT: 919300642382585 Current Medications Documented Mariusz Hector MD completed EKG Mariusz Hector MD complete d SNOMED-CT: 922147915220811 Current Medications Documented Mariusz Hector MD completed EKG Telly sotelo MD completed EKG Mariusz Hector MD complete d EKG Mariusz Hector MD complete d ePrescribe - Check t his box if eRx is used Katherin Regalado MD completed EKG Katherin Regalado MD completed EKG Mariusz Hector MD complete d ePrescribe - Check t his box if eRx is used Mariusz Hector MD completed EKG Mariusz Hector MD complete d EKG Katherin Regalado MD completed EKG Mariusz Hector MD complete d EKG Lio Martin MD complete d GRACE Hector MD complete d
--- OUTSIDE RECORDS SUMMARY | 2024-05-12 00:21 | XMS_ITS | Clinical Summary ---
Author Organization [facility] Address [address] [place] [address] Care Team Providers Care Apple Packing Header Name Role Phone Unavailable Primary Care Provider Unavailabl e Source Comments [facility],non-owned Affiliates and Associated Physician Practices is amultiple site organization consisting of ambulatory clinics and hospital sitesin [place], [place], [place] and [place]. This disclosure is being madepursuant to the Care Everywhere program and may not contain all information available regarding this patient. Last updated 17.[facility] Allergies No known active allergies Medications * [...] 07/14/2011 2:09 PM CDT Plan of Treatment Health Maintenance Due Date Last Done Comments COLOGUARD (AGES 45-75) - COL ON CA SCREENING 1950 COLON MONITORING 1950 COLONOSCOPY - COLON CA SCREENING 1949 CT COLONOGRAPHY - COLON CA SCREENING 1950 Colorectal Cancer Screening 1950 FIT - COLON CA SCREENING 1950 FLEX SIG - COLON CA SCREENING 1950 LIPID TESTING 1950 MEDICARE AWV 12 MONTHS 1950 HEPATITIS C SCREENING 09/16/1967 DTAP/TDAP/TD VACCINES (1 - Tdap) 1968 PNEUMOCOCCAL VACCINE 50+ (1 of 1 - PCV) 09/21/1999 ZOSTER VACCINE (1 of 2) 09/21/1999 COVID-19 VACCINE ( - 2023-2 5 season) 2023 INFLUENZA VACCINE (#1) 2023 DEPRESSION SCREENING 03/09/2024 Respiratory Syncytial Virus (RSV) Vaccine Pt: or over 60 yrs (1 - 1-dose 75+ series) 2024 HEPATITIS B VACCINE Aged Out No longe r eligible based on patient's age to complete this topic HIB VACCINE Aged Out No longer eligi ble based on patient's age to complete this topic HPV VACCINE Aged Out No longer eligi ble based on patient's age to complete this topic MENINGOCOCCAL (Group B) VACCINE Aged Out No longer eligible based on patient's age to complete this topic MENINGOCOCCAL VACCINE Aged Out No lavell wolfgang eligible based on patient's age to [place] [address] Panfilo, Akhil Personal/Famil y Self [address] [place], [place] [address] [address]
--- OUTSIDE RECORDS SUMMARY | 2024-05-12 00:21 | XMS_ITS | Referral Summary ---
Author Organization [facility] [place] [address] [place] Address [address] [place] [address] Care Team Providers Care Supervisor Continuous Weld Pipe Mill Name Role Phone Alex Gould MD Primary Care Provider Encounters Date Type Department Care Team Description 03/23/2024 Telephone [facility] Orthopedics and Sports Medicine [address] [phone] Shahid Fung MD 03/21/2024 9:00 AM BALLAST CLEANING MACHINE OPERATOR Ancillary Procedure [facility] Imaging at [address] [phone] 03/21/2024 8:30 AM BALLAST CLEANING MACHINE OPERATOR Office Visit [facility] Orthopedic and Sports Medicine [address] [place] [phone] Joaquim Sharp PA Primary osteoarthritis of both wrists (Primary Dx); Ganglion of right wrist from Last 3 Months Allergies No known active allergies Medications atorvastatin [...] mouth 2 (two) times a day Active nn-1-nel-epa-fi sh oil-vit D3 300-1,000-1,000 mg-mg-unit capsuleIndicati ons:stop [...] (08/26/2018): Added automatically from request for surgery [id number] Nontraumatic complete tear of left rotator cuff 08/26/2018 Overview (08/26/2018): Added automatically from request for surgery [id number] Biceps tendinitis of left upper extremity 2018 Overview (08/26/2018): Added automatically from request for surgery [id number] Social History Tobacco Use Types Packs/Day Years Used Date Smoking Tobacco: Former Smokeless Tobacco: Former Alcohol Use Standard Drinks/Week Comments Yes 0 (1 standard drink = 0.6 oz pur e alcohol) occasional Sex and Gender Information Value Date Recorded Sex Assigned at Not on file Legal Sex Male 10:06 PM BALLAST CLEANING MACHINE OPERATOR Gender Identity Not on file Sexual Orientation Not on file Last Filed Vital Signs Vital Sign Reading Time Taken Comments Blood Pressure 125/74 03/21/2024 8:28 AM BALLAST CLEANING MACHINE OPERATOR Pulse 66 03/21/2024 8:28 AM BALLAST CLEANING MACHINE OPERATOR Temperature 37.1 C (98.8 F) 11/20/2022 4:38 PM CDT Respiratory Rate 20 11/20/2022 4:38 PM CDT Oxygen Saturation 97% 11/20/2022 4:38 PM CDT Inhaled Oxygen Concentration - - Weight 92.5 kg (204 lb) 03/21/2024 8:28 AM BALLAST CLEANING MACHINE OPERATOR Height 182.9 cm (6') 03/21/2024 8:28 AM BALLAST CLEANING MACHINE OPERATOR Body Mass Index 27.67 03/21/2024 8:28 AM BALLAST CLEANING MACHINE OPERATOR Plan of Treatment Not on file Procedures Procedure Name Priority Date/Time Associated Diagnosis Comments XR WRIST RIGHT 3 OR MORE VIEWS Schedule Routine, Read Routine (OP Routine) 03/21/2024 8:35 AM BALLAST CLEANING MACHINE OPERATOR Right wrist pain from Last 3 Months Results * XR Wrist Right 3 or More Views (03/21/2024 8:35 AM BALLAST CLEANING MACHINE OPERATOR) Anatomical Region Laterality Modality Upper Extremities, Wrist Right Digital Radiography Narrative 03/21/2024 8:37 AM BALLAST CLEANING MACHINE OPERATOR Three views of the right wrist are negative for fracture dislocation or osseous lesion. Advanced arthritic changes are noted with complete yhbw-gt-dcfy articulation noted in the radiocarpal joint. There is also advanced arthritic changes noted at the DRUJ. Mild to moderate changes noted throughout the intercarpal bones. Joaquim CLIFFORD IMG XR PROCEDURES Final Res ult from Last 3 Months Insurance [facility] MEDIC[facility] Address: [address] [address] [place] [address] MEDIC[place] [address] MEDICARE MEDICARE SOLUTIONS [facility] MEDIC[facility] Address: [address] [address] [place] [address] Care Teams Supervisor Continuous [employer] P[employer] Mill Relationship Specialty Start Date End Date Alex Gould MD PCP - General Family Medicine 9/14/23
--- OUTSIDE RECORDS SUMMARY | 2024-05-12 00:21 | XMS_ITS | Continuity of Care Document ---
Author Organization [facility] [place] Address [address] [place] [address] [place] [address] Phone Care Team Providers Care Signal Maintainer Name Role Phone Justin Garcia MD Unavailable Unavailable Procedures Procedure Date Post-op Follow-up Visit Explore/irrigate Tear Ducts Skin Tissue Rearrangement Office Consultation Explore/irrigate Tear Ducts Office/outpatient Visit, Est Advance Directives Directive Yes / No Effective Date File Name No Information Encounters Encounter Description Practice Location Reason(s) For Visit Diagnoses Date Provider Providers Copied on Encounter [facility], [address] [place], [place] [address], [place], [place], [id number], tel:[phone] SEC Lashonda Tucker No Information 8200 [address] Radha Anderson. [address] [facility] [facility] [place], [id number], [place]. tel:[phone] [facility], [address] [place] [address] [address], [place], [place], [id number], tel:[phone] [facility] No Information 0 7-200 8 Radha Anderson. [address] [facility] [address], [place], [place], [id number], [place]. tel:[phone] Referring Provider: Madelin Garcia Y, [address], [place], [address]. tel:[phone] Office Consultation [facility], [address], [place], [place], [id number], [place] tel:[phone] SEC Lashonda Ambreen Bernalloydsandee No Information 2 8 Radha Anderson. [address] [facility], [address], [place], [place], [address], [place]. tel:[phone] Referring Provider: Madelin Capellan, [address], [place], [place], [facility]. tel:[phone] Office/outpati ent Visit, [facility], [address], [place], [place], [address], [place] tel:[phone] SEC [facility] No Information Aug-0 8 Radha Yusuf. [address], [place], [place], [facility], [place]. tel:[phone] Referring Provider: Do Lawler, [address], [place], [address]. tel:[phone] Family History Family Member Type Diagnosis Age At Onset No Information Payers Payer name Insurance type Covered green party ID Authoriza tion(s) No Information Social History Type Description Quantity Date Captured Comments Sex Male Smoking Status No Information Chief Complaint And Reason For Visit No Information Reason For Referral Reason For Referral No Information History Of Present Illness Encounter Date Complaint History Of Prese nt Illness No Information Functional Status Date Functional Assessmen t No Information Instructions Date Instruction Additional Infor mation No Information Assessments Type Assessment Date No Information Patient Care Teams Name Effective Dates (start - stop) Status Members No Information
--- OUTSIDE RECORDS SUMMARY | 2024-05-12 00:21 | XMS_ITS | Clinical Summary ---
Author Organization [facility] Address [address] [place] [address] Care Team Providers Care Director Transportation Name Role Phone Alex Gould MD Primary Care Provider [phone] Allergies No known active allergies Medications celecoxib (CELEBREX) 200 MG capsule Take 100 mg by mouth 2 (two) times daily. Active hydroxychloroqu ine (PLAQUENIL) 200 MG tablet Take 1 tablet (200 mg total) by mouth daily. Active leflunomide (ARAVA) 20 MG tablet Take 1 tablet (20 mg total) by mouth daily. Active tamsulosin (FLOMAX) 0.4 MG Cap Take 1 capsule (0.4 mg total) by mouth daily. Active rosuvastatin (CRESTOR) 20 MG tablet Take 1 tablet (20 mg total) by mouth nightly at bedtime. Active ezetimibe (ZETIA) 10 MG tablet Take 1 tablet (10 mg total) by mouth daily. Active apixaban (ELIQUIS) 5 MG tablet Take 1 tablet (5 mg total) by mouth 2 (two) times daily. Active amLODIPine (NORVASC) 2.5 MG tablet Take 1 tablet (2.5 mg total) by mouth daily. Active sotalol (BETAPACE) 80 MG tablet Take 1 tablet (80 mg total) by mouth 2 (two) times daily. Active relugolix (ORGOVYX) 120 MG Tab tablet Take 1 tablet by mouth daily. Active vitamin C (ASCORBIC ACID) 250 MG tablet Take 1 tablet (250 mg total) by mouth daily. Active vitamin D3 10 mcg tablet Take 1 tablet (10 mcg total) by mouth daily. Active ferrous sulfate EC 325 (65 Fe) MG tablet Take 1 tablet by mouth daily. Active cyanocobalamin (VIT B-12) 250 MCG Tab Take 1 tablet (250 mcg total) by mouth daily. Active [place]-3 Fatty Acids (FISH OIL) 500 MG capsule Take 500 mg by mouth daily. Active Encounters Date Type Department Care Team Description 05/02/2024 8:29 AM WEDDING DESIGNER - 05/02/2024 9:08 AM WEDDING DESIGNER Surgery [facility] Surgery [address] [place] [address] Marcos Vanessa MD CATARACT REMOVAL WITH IOL IMPLANT 05/02/2024 8:24 AM WEDDING DESIGNER Anesthesia Event [facility] [address] [place] [address] Nae Ellis CRNA Bell, Lisa M, CRNA 05/02/2024 7:17 AM WEDDING DESIGNER - 05/02/2024 9:07 AM WEDDING DESIGNER Hospital Encounter [facility] Surgery [address] [place] [address] Marcos Vanessa MD Discharge Disposition: Home or Self Care (Routine Discharge) 05/02/2024 Travel from Last 3 Months Social History Tobacco Use Types Packs/Day Years Used Date Smoking Tobacco: Never Smokeless Tobacco: Never Tobacco Cessation:Counseling Given: Not Answered Alcohol Use Standard Drinks/Week Comments Yes 0 (1 standard drink = 0.6 oz pur e alcohol) occ. Sex and Gender Information Value Date Recorded Sex Assigned at Not on file Legal Sex Male 1:38 PM WEDDING DESIGNER Gender Identity Not on file Sexual Orientation Not on file Last Filed Vital Signs Vital Sign Reading Time Taken Comments Blood Pressure 128/72 05/02/2024 8:52 AM WEDDING DESIGNER Pulse 62 05/02/2024 8:52 AM WEDDING DESIGNER Temperature - - Respiratory Rate 22 05/02/2024 7:30 AM WEDDING DESIGNER Oxygen Saturation 99% 05/02/2024 8:52 AM WEDDING DESIGNER Inhaled Oxygen Concentration - - Weight 90.7 kg (200 lb) 04/21/2024 10:13 AM WEDDING DESIGNER Height 182.9 cm (6') 04/21/2024 10:13 AM WEDDING DESIGNER Body Mass Index 27.12 04/21/2024 10:13 AM WEDDING DESIGNER Plan of Treatment Health Maintenance Due Date Last Done Comments Colorectal Cancer Screening Colonoscopy (10 Years) 1950 Hepatitis C 09[birth year]21/1967 Annual Medicare Wellness Visit 2014 COVID-19 Vaccine ( season) 2023 12/02/2021, 12/18/2020, 05/24/2020, Additional history exists DTaP, Tdap and Td Vaccines (4 - Td or Tdap) 10/18/2030 10/18/2020, 05/28/2015, 03/09/2014 Pneumococcal Vaccine: 65+ Years Completed 05/28/2015, 03/09/2015 Zoster Vaccines Completed 02/18/2022, 12/07, 05/27/2015, Additional history exists Influenza Adult Completed 11/12/2023, 10/08, 11/20/2020 RSV Immunization or 60+ Years Completed 11/12/2023 Meningococcal B Vaccine Aged Out No l onger eligible based on patient's age to complete this topic Meningococcal Vaccine Aged Out No lavell wolfgang eligible based on patient's age to complete this topic RSV Immunizations Under 20 Months Aged Out No longer eligible based on patient's age to complete this topic Medical Devices Implanted Type Area Chicken [employer] Fish Butcher Device Identifier Shelf Expiration Date Model / Serial / Lot Iol [employer] [id number] - [id number] Implanted:Qty: 1 on 05/02/2024 by Marcos Vanessa MD at [facility] Lens Right: Eye [employer] [id number] 02/15/2027 [id number] / [id number] / Procedures Procedure Name Priority Date/Time Associated Diagnosis Comments REMV CATARACT EXTRACAP,INSERT LENS 05/02/2024 8:24 AM WEDDING DESIGNER H25.11 Case Notes C from Last 3 Months Insurance [facility] Care Teams Director Transportation Relationship Specialty Start Date End Date Alex Gould MD [address] [address] PCP - General FAMILY PRACTICE 04/22/24
--- OUTSIDE RECORDS SUMMARY | 2024-05-12 00:21 | XMS_ITS | Patient Health Summary ---
Author Organization [facility] Address [address] [place] [address] Care Team Providers Care Kitchen Clerk Name Role Phone Unavailable Primary Care Provider Unavailabl e Note from [facility],non-owned Affiliates and Associated Physician Practices is amultiple site organization consisting of ambulatory clinics and hospital sitesin [place], [place], [place] and [place]. This disclosure is being madepursuant to the Care Everywhere program and may not contain all information available regarding this patient. Last updated 17.[facility] Allergies No known active allergies Medications * Be aware that medications may not be up to date on this document. Alwaysverify current medications with the patient. * metoprolol tartrate IR (LOPRESSOR) 50 MG tablet * allopurinol (ZYLOPRIM) 100 MG tablet * choline fenofibrate (TRILIPIX) 135 MG capsule * niacin CR (NIASPAN) 500 MG tablet * celecoxib (CELEBREX) 200 MG capsule * diclofenac sodium (VOLTAREN) 75 MG tablet(Started 07/14/2011) Take 1 Tab by mouth 2 times daily. 4 refills left Active Problems Problem Noted Date Diagnosed Date [...] Mass Index 30.52 07/14/2011 2:09 PM CDT Procedures * SKIN TEST PPD - POINT OF CARE(Performed 07/06/2017) Performed for PPD screening test * XR LUMBAR SPINE 2 OR 3VW(Performed 07/14/2011) Performed for Congenital spondylolisthesis, Degeneration of lumbar or lumbosacral intervertebral disc Results * SKIN TEST PPD - POINT OF CARE (07/06/2017) PPD neg Other MISCELLANEOUS SAMPLE S / Unknown 07/06/2017 Dipti Calixto [employer] [facility] - POINT OF CA RE ORDERABLES * XR LUMBAR SPINE 2 OR 3 VW (07/14/2011 3:46 PM CDT) Anatomical Region Laterality Modality Spine Radiographic Roseanna ging 07/14/2011 4:02 PM CDT Impressions 07/14/2011 4:02 PM CDT Grade 2 anterolisthesis of L5 on S1 which is worse on extension. Narrative 07/14/2011 4:02 PM CDT Lumbosacral spine; lateral flexion and extension views Date: 07/14/2011 History: Congenital spondylolisthesis Findings: Grade 2 anterolisthesis of L5 on S1 is noted. On flexion it measures 16 mm. On extension it measures 28 mm. No anterior wedge compression deformities or fractures are evident. Procedure Note Jarred Faustin MD - 07/14/2011 Lumbosacral spine; lateral flexion and extension views Date: 07/14/2011 History: Congenital spondylolisthesis Findings: Grade 2 anterolisthesis of L5 on S1 is noted. On flexion it measures 16 mm. On extension it measures 28 mm. No anterior wedge compression deformities or fractures are evident. IMPRESSION Grade 2 anterolisthesis of L5 on S1 which is worse on extension. Shayne French MD DIAGNOSTIC IMAGING O [facility]
[2024-05-12 07:42] VITALS: BP 115/55; PULSE 58; RESP 20; TEMP 35.8; O2SAT 100; BMI 27.1
--- NOTE | 2024-05-12 07:48 | WPDANESEPP ---
Anes - Eval Pre Procedure Procedure: Operation Date: 05/12/24 09:00 Proposed Procedures p Flexible Sigmoidoscopy - Mario Shen MD Date/Time: 05/12/24 07:48 Pre Op Diagnosis: Radiation proctitis Patient Data Age: 73 Gender: M Height: 1.83 m Weight: 200 kg Allergies Allergy/AdvReac Type Severity Reaction Status Date / Time No Known Allergies Allergy Verified 04/12/24 10:54 Home Medications ?Medication ?Instructions ?Recorded ?Confirmed ?Type vitamin B complex (B 1 tablet PO BID 06/25/20 05/12/24 History Complex-Vitamin B12 tablet) relugolix 120 mg tablet (Orgovyx) 120 mg PO DAILY 05/20/22 05/12/24 History tamsulosin 0.4 mg capsule 0.4 mg PO HS 05/20/22 05/12/24 History apixaban 5 mg tablet (Eliquis) 5 mg PO BID 06/09/22 05/12/24 History ipratropium bromide 17 2 puff inhalation QID 06/09/22 05/12/24 History mcg/actuation HFA aerosol inhaler (Atrovent HFA) rosuvastatin 20 mg tablet 20 mg PO DAILY #90 tabs 09/28/23 05/12/24 Rx cholecalciferol (vitamin D3) 25 25 mcg PO DAILY 10/19/23 05/12/24 History mcg (1,000 unit) tablet ezetimibe 10 mg tablet 10 mg PO DAILY 10/19/23 05/12/24 History mecobalamin (vitamin B12) 1,000 1,000 mcg PO BID 10/19/23 05/12/24 History mcg chewable tablet omega 5-eah-emc-fish oil 1,200 mg 2 cap PO DAILY 10/19/23 05/12/24 History (144 mg-216 mg) capsule (Fish Oil) sotalol 80 mg tablet 80 mg PO BID #60 tabs 11/27/23 05/12/24 Rx leflunomide 20 mg tablet 20 mg PO DAILY #90 tabs 02/08/24 05/12/24 Rx amlodipine 2.5 mg tablet 2.5 mg PO HS 02/17/24 05/06/24 History ferrous sulfate 325 mg (65 mg 325 mg PO BID 02/17/24 05/12/24 History iron) tablet vibegron 75 mg tablet (Gemtesa) 75 mg PO DAILY 02/17/24 05/06/24 History celecoxib 100 mg capsule 100 mg PO Q12H 04/05/24 05/12/24 History hydroxychloroquine 200 mg tablet 200 mg PO DAILY 05/06/24 05/12/24 History (Plaquenil) multivitamin (Daily Multi-Vitamin 1 tablet PO DAILY 05/06/24 05/12/24 History tablet) Patient hx anesthesia problems: none Family hx anesthesia problems: none Results Review: All pre-operative results and documents have been reviewed as part of the pre-operative evaluation. [facility] Past Medical History Medical History JUDY (obstructive sleep apnea) Encounter for medication management Counseling on health promotion and disease prevention Anxiety Degenerative joint disease of cervical and lumbar spine Seronegative rheumatoid arthritis Inflammatory arthritis Lumbar spondylolysis Bulging discs Anxiety due to invasive procedure Lumbar spondylitis Cervical spondylosis Neck pain Lumbar back pain Low BP Anemia Prostate cancer Hemorrhoids On statin therapy Elevated fasting glucose Osteoarthritis, hand Right foot pain Colonoscopy planned Asthma Symptomatic cholelithiasis Lumbar degenerative disc disease Hydrocele Prostate enlargement RLQ abdominal pain Atrial fibrillation Elevated PSA Acute right-sided low back pain without sciatica Essential (primary) hypertension Gastroesophageal reflux disease without esophagitis Gout, unspecified Hyperlipidemia Paroxysmal atrial fibrillation Unspecified asthma, uncomplicated Unspecified osteoarthritis, unspecified site Surgical History Surgical History H/O hemorrhoidectomy Multiple hemorrhoid ligation (Transanal hemorrhoid dearterialization procedure) on 06/16/[address] Conley Hx laparoscopic cholecystectomy H/O left knee surgery H/O elbow surgery H/O hand surgery H/O shoulder surgery History of cardiac radiofrequency ablation Family History Family History Mother Family history of kidney disease Family history of renal failure Diabetes mellitus Father Carcinoma of colon Sibling No problems noted. Social History Social History Social History: Caffeine-coffee Smoking packs per day: 1 Smoking cigarettes per day: 20.0 Years smoked: 16 Smoking pack-years: 16.00 Smoking status: Former smoker Tobacco type: cigarettes Second hand tobacco smoke exposure: No Smoking end date: 09/07/87 Alcohol intake: current Drinks per week: 8 Substance use: never Substance use type: does not use Do You Feel Safe in your Home?: Yes Lack of Transportation: No Lack of Food: Never True Current Housing: I Have Housing Concerned About Future Housing: No Difficulty Paying Gas/Electric Bills: No Difficulty Paying for Meds: No Currently Unemployed: No Education: Bachelor's Degree Difficulty w/ Childcare or Family Care: No Living arrangements: with family Additional living arrangements comments: Occupation/Education: retired 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
[2024-05-12] MEDS: LACTATED RINGERS 1,000 ML 150 ML IV CONT (07:55)
--- NOTE | 2024-05-12 08:33 | P.HP_ITS ---
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 In February 2024 I performed a sigmoidoscopy with argon plasma coagulation ablation of several lesions. He is here for a 2nd session, did well except for 1 bleeding episode last night, minor quantity. Review of Systems Review of Systems: All systems reviewed & are unremarkable except as noted in HPI and below PMFSH Past Medical History Medical History JUDY (obstructive sleep apnea) Encounter for medication management Counseling on health promotion and disease prevention Anxiety Degenerative joint disease of cervical and lumbar spine Seronegative rheumatoid arthritis Inflammatory arthritis Lumbar spondylolysis Bulging discs Anxiety due to invasive procedure Lumbar spondylitis Cervical spondylosis Neck pain Lumbar back pain Low BP Anemia Prostate cancer Hemorrhoids On statin therapy Elevated fasting glucose Osteoarthritis, hand Right foot pain Colonoscopy planned Asthma Symptomatic cholelithiasis Lumbar degenerative disc disease Hydrocele Prostate enlargement RLQ abdominal pain Atrial fibrillation Elevated PSA Acute right-sided low back pain without sciatica Essential (primary) hypertension Gastroesophageal reflux disease without esophagitis Gout, unspecified Hyperlipidemia Paroxysmal atrial fibrillation Unspecified asthma, uncomplicated Unspecified osteoarthritis, unspecified site Surgical History Surgical History H/O hemorrhoidectomy Multiple hemorrhoid ligation (Transanal hemorrhoid dearterialization procedure) on 06/16/[address] Jarvis [place] laparoscopic cholecystectomy H/O left knee surgery H/O elbow surgery H/O hand surgery H/O shoulder surgery History of cardiac radiofrequency ablation Family History Family History Mother Family history of kidney disease Family history of renal failure Diabetes mellitus Father Carcinoma of colon Sibling No problems noted. Social History Social History Social History: Caffeine-coffee Smoking packs per day: 1 Smoking cigarettes per day: 20.0 Years smoked: 16 Smoking pack-years: 16.00 Smoking status: Former smoker Tobacco type: cigarettes Second hand tobacco smoke exposure: No Smoking end date: 09/07/87 Alcohol intake: current Drinks per week: 8 Substance use: never Substance use type: does not use Do You Feel Safe in your Home?: Yes Lack of Transportation: No Lack of Food: Never True Current Housing: I Have Housing Concerned About Future Housing: No Difficulty Paying Gas/Electric Bills: No Difficulty Paying for Meds: No Currently Unemployed: No Education: Bachelor's Degree Difficulty w/ Childcare or Family Care: No Living arrangements: with family Additional living arrangements comments: Occupation/Education: retired 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 Gender identity (if verbalized by the patient): Male Spiritual care concerns: No Meds Home Medications and Allergies Home Medications ?Medication ?Instructions ?Recorded ?Confirmed ?Type vitamin B complex (B 1 tablet PO BID 06/25/20 05/12/24 History Complex-Vitamin B12 tablet) relugolix 120 mg tablet (Orgovyx) 120 mg PO DAILY 05/20/22 05/12/24 History tamsulosin 0.4 mg capsule 0.4 mg PO HS 05/20/22 05/12/24 History apixaban 5 mg tablet (Eliquis) 5 mg PO BID 06/09/22 05/12/24 History ipratropium bromide 17 2 puff inhalation QID 06/09/22 05/12/24 History mcg/actuation HFA aerosol inhaler (Atrovent HFA) rosuvastatin 20 mg tablet 20 mg PO DAILY #90 tabs 09/28/23 05/12/24 Rx cholecalciferol (vitamin D3) 25 25 mcg PO DAILY 10/19/23 05/12/24 History mcg (1,000 unit) tablet ezetimibe 10 mg tablet 10 mg PO DAILY 10/19/23 05/12/24 History mecobalamin (vitamin B12) 1,000 1,000 mcg PO BID 10/19/23 05/12/24 History mcg chewable tablet omega 8-pmo-don-fish oil 1,200 mg 2 cap PO DAILY 10/19/23 05/12/24 History (144 mg-216 mg) capsule (Fish Oil) sotalol 80 mg tablet 80 mg PO BID #60 tabs 11/27/23 05/12/24 Rx leflunomide 20 mg tablet 20 mg PO DAILY #90 tabs 02/08/24 05/12/24 Rx amlodipine 2.5 mg tablet 2.5 mg PO HS 02/17/24 05/06/24 History ferrous sulfate 325 mg (65 mg 325 mg PO BID 02/17/24 05/12/24 History iron) tablet vibegron 75 mg tablet (Gemtesa) 75 mg PO DAILY 02/17/24 05/06/24 History celecoxib 100 mg capsule 100 mg PO Q12H 04/05/24 05/12/24 History hydroxychloroquine 200 mg tablet 200 mg PO DAILY 05/06/24 05/12/24 History (Plaquenil) multivitamin (Daily Multi-Vitamin 1 tablet PO DAILY 05/06/24 05/12/24 History tablet) Allergies Allergy/AdvReac Type Severity Reaction Status Date / Time No Known Allergies Allergy Verified 04/12/24 10:54 Vital Signs Vital Signs - 24 hr 05/12/24 07:42 Temperature 96.5 F L Pulse Rate 58 L Respiratory Rate 20 Blood Pressure 115/55 L Pulse Oximetry 100 Oxygen Delivery Room Air Exam Const: General: cooperative and healthy appearing Resp: Effort & Inspection: normal respiratory effort and able to speak in complete sentences Auscultation: clear to auscultation bilaterally Cardio: Rate: regular rate Rhythm: regular rhythm GI: Inspection: normal to inspection GI Palp: No No hepatosplenomegaly present Auscultation: normal bowel sounds Rectal Exam: deferred Skin: General skin exam: normal color Psych: Appearance: grossly normal Mental Status: mental status grossly normal Assessment and Plan Assessment and plan (1) Radiation proctitis: Code(s): K62.7 - Radiation proctitis Status: Acute Assessment and Plan: The patient is deemed a good candidate for the procedure. Consent signed. Will proceed.
--- NOTE | 2024-05-12 08:36 | P.PNAN_ITS ---
Anes - Eval Final PreProcedure Day of Procedure 05/12/24 08:36 Patient weight: overweight Neurological: alert and oriented Last oral intake: >/= 8 hours ASA classification: IV Emergent: yes Anesthetic plan: proceed Anesthesia type and monitoring: general GIVS and standard monitoring Results Review: All pre-operative results and documents have been reviewed as part of the pre- operative evaluation. Informed Consent: The patient's anesthetic plan and its attendant risks and benefits were discussed with the patient/family/POA. Questions were solicited and answers provided to the satisfaction of the patient/family/POA.
[2024-05-12 08:57] VITALS: BP 90/50; PULSE 58; RESP 18; O2SAT 98
[2024-05-12 09:07] VITALS: BP 101/59; PULSE 56; RESP 18; O2SAT 99
[2024-05-12 09:17] VITALS: BP 119/62; PULSE 52; RESP 18; O2SAT 99
== END 2024-05-12 09:31 | disposition home or self-care (01) ==
PROVIDERS: PCP Family Medicine; Visit Provider Internal Medicine Gastroenterology
PROC: 0DJD8ZZ Inspection of Lower Intestinal Tract, Via Natural or Artificial Opening Endoscopic (ICD-10-PCS; CPT 45330; principal; 2024-05-12 09:00)
DX: Q27.33 Arteriovenous malformation of digestive system vessel (principal); K64.1 Second degree hemorrhoids; K62.7 Radiation proctitis; Z85.46 Personal history of malignant neoplasm of prostate; Z92.3 Personal history of irradiation; Z87.891 Personal history of nicotine dependence
CPT/HCPCS: 45346; J2003; J2704; J7120